=== PATIENT | female | born 1990 | race Caucasian/White ===

== ENCOUNTER 2019-04-05 12:28 | Observation (INO) | payer OTHER, SELFPAY ==
[2019-04-05 13:01] VITALS: BMI 31.8
--- NOTE | 2019-04-05 13:02 | OBADM ---
This patient, Alphonse Herron, admitted to the OB room 115 at 1228 for observation for contractions. Patient/family oriented to hospital policies and general routines including ID bracelet, bed and alarms, visiting hours, pain management, procedures, bathroom and other care routines, personal items, smoking policy, room service/diet, and visiting hours. Patient/Family are encouraged to report perceived risks to care and to ask questions if they do not understand what they are told or what they should do.
[2019-04-05 13:10] LABS: Add Urine Microscopic? YES; Appearance Urine Cloudy (Clear); Bacteria Urine 2+ /hpf; Bilirubin Urine Negative (Negative); Blood Urine Negative (Negative); Color Urine Yellow (Yellow); Glucose Urine UA Negative (Negative); Ketones Urine Trace mg/dL (Negative); Leukocyte Esterase Ur Negative LEU/UL (Negative); Mucus Urine Few /lpf; Nitrate Urine Negative (Negative); Protein Urine 1+ mg/dL (Negative); Specific Grav Ur 1.021 (1.001-1.035); Squamous Epithelial Cell Urine Moderate /hpf (Few); Urobilinogen Urine Negative mg/dL (<2.0)
[2019-04-05 13:17] VITALS: BP 118/68; PULSE 88; RESP 20; TEMP 36.4
[2019-04-05 13:31] VITALS: BP 115/71; PULSE 93
[2019-04-05 14:01] VITALS: BP 112/65; PULSE 87
[2019-04-05 14:25] LABS: Fetal Fibronectin Negative
--- NOTE | 2019-04-06 11:10 | P.PNOB_ITS ---
OB - Triage/Final Diagnosis Evaluation Laboratory results: Laboratory Tests 04/05/19 04/05/19 12:56 13:49 Urine Color Yellow Urine Appearance Cloudy H Urine pH 6.0 Ur Specific [place] 1.021 Urine Protein 1+ H Urine Glucose (UA) Negative Urine Ketones Trace Ur Blood (Man) Negative Urine Nitrate Negative Urine Bilirubin Negative Urine Urobilinogen Negative Leukocyte Esterase Rfl Negative Urine RBC 3-5 H Urine WBC 7-9 H Ur Squamous Epith Cells Moderate H Urine Bacteria 2+ H Urine Mucus Few H Fibronectin Negative Vital signs: Vital Signs - 24 hr 04/05/19 13:17 04/05/19 13:31 04/05/19 14:01 Temperature 36.4 C Pulse Rate 88 93 87 Respiratory Rate 20 Blood Pressure 118/68 115/71 112/65 Final Diagnosis (1) contractions: Code(s): O47.9 - False labor, unspecified Status: Acute
== END 2019-04-05 15:20 | disposition home or self-care (01) ==
PROVIDERS: Admitting Provider Obstetrics & Gynecology; Visit Provider Obstetrics & Gynecology
DX: O47.03 False labor before 37 completed weeks of gestation, third trimester (principal); Z3A.32 32 weeks gestation of pregnancy
CPT/HCPCS: 81001; 82731; 87086; G0378; G0379

== ENCOUNTER 2019-04-07 22:35 | Inpatient (IN) | payer OTHER, SELFPAY ==
--- NOTE | ~2019-04-07 | US_ITS ---
EXAMINATION: US OB limited w BPP DATE: 04/09/2019 21:57 INDICATION: Vaginal bleeding. Evaluate placenta, biophysical profile and amniotic fluid index during third trimester of . TECHNIQUE: Real-time pelvic ultrasound was performed. The interpreting radiologist was not present fo r the study. COMPARISON: 04/08/2019 FINDINGS: There is a single living fetus in vertex presentation. The placenta is fundal. heart rate is 1 41 beats per minute (bpm). Normal amniotic fluid index of 18.2 cm (5th%-95%: 8.3-24.5 cm at 33 weeks estimated gestational age). Biophysical profile performed by the technologist: breathing (30 sec sustained breathing in 30 minutes): 2 out of 2 movement (3 gross body movements in 30 minutes): 2 out of 2 tone (one episode of jtygmmj-cythcrkdr-joyymvl limb movement): 2 out of 2 Amniotic fluid pocket (2 cm): 2 out of 2 Total score: 8 out of 8 IMPRESSION: 1. Single living fetus in vertex presentation with heart rate of 141 bpm. 2. Biophysical profile 8 out of 8. 3. Normal amniotic fluid index of 18.2 cm. Reviewed, dictated and finalized at location A. UREMENT BUYER
--- NOTE | ~2019-04-07 | US_ITS ---
US OB limited 04/08/2019 00:59 Indication: Vaginal bleeding. . Procedure: Realtime limited obstetrical ultrasound using transabdominal technique Comparison: No prior studies for comparison. Findings: There is a single live intrauterine in vertex presentation with heart rate of 139 BPM. Placenta is fundal without previa. Amniotic fluid is subjectively normal. The placenta is grossly normal, without suggestion of placenta abruption. However, ultrasound is not diagnostic of abruption since acute hemorrhage can be isoechoic to be placenta. Recommend clinical correlation. Impression: 1: Single living intrauterine in vertex presentation. No significant abnormalities identifi ed. Reviewed, dictated and finalized at location A. LIFT SUPERVISOR Impression: 1: Single living intrauterine in vertex presentation. No significant abnormalities identified.
[2019-04-07 22:41] VITALS: BP 130/85; PULSE 97
[2019-04-07 22:45] VITALS: BP 143/78; PULSE 91
[2019-04-07] MEDS: TERBUTALINE SULFATE 1 MG/ML VIAL 0.25 MG SUB-Q (23:15)
[2019-04-07 23:39] VITALS: BP 105/49; PULSE 100
[2019-04-07 23:45] VITALS: BP 124/48; PULSE 92
[2019-04-07 23:49] VITALS: BP 108/48; PULSE 88
[2019-04-08] VITALS (17 sets, daily range): BP systolic 37–134; BP diastolic 15–93; PULSE 87–110; RESP 18; TEMP 36.6–36.7
[2019-04-08] MEDS: NIFEdipine 10 MG CAPSULE PO ×6 (00:15→21:19)
[2019-04-08] MEDS: LACTATED RINGERS 1,000 ML 999 ML IV CONT (02:13)
--- NOTE | 2019-04-08 02:43 | OBADM ---
This patient, Alphonse Herron, admitted to the OB room OB Post 116 for observation. Patient/family oriented to hospital policies and general routines including ID bracelet, bed and alarms, visiting hours, pain management, procedures, bathroom and other care routines, personal items, smoking policy, room service/diet, and visiting hours. Patient/Family are encouraged to report perceived risks to care and to ask questions if they do not understand what they are told or what they should do.
[2019-04-08] MEDS: LACTATED RINGERS 1,000 ML 125 ML IV CONT ×2 (03:15→11:15)
[2019-04-08] MEDS: BETAMETHASONE SOD PHOS/ACETATE 30 MG/5 ML VIAL 12 MG IM (09:14)
--- NOTE | 2019-04-08 09:28 | PM.IMHP ---
H&P: HPI History of Present Illness Chief complaint: vaginal bleeding Narrative: Alphonse Herron is a 28 year old female at 33+2 who came in 2/1 pm with c/o cramping and vaginal bleeding. She felt a moderate gush of fluid (which was blood when she looked). Bleeding has since resolved. She was kept throughout the night for contractions and observation. She was initially given terbutaline then procardia 10 mg po 3 times now. She does not feel contractions. No complaints now Review of Systems Review of Systems: All systems reviewed & are unremarkable except as noted in HPI and below [facility] Past Medical History Medical History (Updated 04/08/19 @ 09:40 by Piper Abel MD) Currently Yeast infection Social History Social History (Updated 01/14/19 @ 22:43 by Elida Gilbert) Smoking status: Current some day smoker Tobacco type: cigarettes Meds Home Medications and Allergies Home Medications Medication Instructions Recorded Confirmed Type 1 tablet PO DAILY 02/19/19 04/08/19 History Allergies Allergy/AdvReac Type Severity Reaction Status Date / Time buspirone Allergy Severe Swelling Verified 04/05/19 13:13 of Lip/Tongue/Throat peanut Allergy Severe Swelling Verified 04/05/19 13:13 of Lip/Tongue/Throat Vital Signs Vital Signs - 24 hr 04/07/19 22:41 04/07/19 22:45 04/07/19 23:39 Pulse Rate 97 91 100 Blood Pressure 130/85 143/78 H 105/49 L 04/07/19 23:45 04/07/19 23:49 04/08/19 00:00 Pulse Rate 92 88 89 Blood Pressure 124/48 L 108/48 L 116/50 L 04/08/19 00:16 04/08/19 00:18 04/08/19 00:19 Pulse Rate 93 90 93 Blood Pressure 112/30 L 111/37 L 103/41 L 04/08/19 00:30 04/08/19 01:00 04/08/19 02:01 Pulse Rate 110 H 88 92 Blood Pressure 115/93 H 107/60 103/53 L 04/08/19 03:04 04/08/19 03:17 04/08/19 08:45 Pulse Rate 88 96 87 Blood Pressure 37/15 L 114/59 L 117/62 Exam Const: General: no acute distress Resp: Auscultation: clear to auscultation bilaterally Cardio: Rate: regular rate Rhythm: regular rhythm GI: GI Palp: Yes Soft to palpation and No Tenderness to palpation present (GI) Other: Uterus nontender Extrem: General: no edema Psych: Mental Status: mental status grossly normal Assessment and Plan Assessment and plan (1) with third trimester bleeding, antepartum: Code(s): O46.93 - Antepartum hemorrhage, unspecified, third trimester Status: Acute Assessment and Plan: No evidence of abruption on ultrasound. Bleeding has resolved. I spoke with Dr. Jerez Ange with [facility]. who agrees with steroid course (First dose was given this morning). He also recommends observation in hospital with continuous monitoring for 3-4 days minimum. She may stay here if patient comfortable with that, or she may choose to be transferred to [facility] if she prefers. She agrees to stay at least until tomorrow for second dose of steroids. She is aware of recommendation to stay in hospital 3-4 days per [facility]. status overall reassuring but one 5 minute deceleration noted around 0840. Rh + blood type (2) contractions: Code(s): O47.9 - False labor, unspecified Status: Acute Assessment and Plan: No current evidence of labor but continue procardia for contractions.
[2019-04-08 10:18] LABS: Hematocrit 29.9 % (37.0-47.0); Hemoglobin 9.9 g/dL (12.0-15.0); Mean Corpuscular HGB Conc 33.1 g/dl (32-36); Mean Corpuscular Hemoglobin 32.1 pg (26-34); Mean Corpuscular Volume 97.1 fl (80-100); Mean Platelet Volume 10.2 fl (7.4-10.4); Platelet Count Result 156 k/mm3 (150-375); Red Blood Count 3.08 M/mm3 (4.2-5.4); White Blood Count 12.5 K/mm3 (4.5-10.0)
[2019-04-08 11:33] LABS: Glucose Point of Care 75 (65-105)
[2019-04-08 13:57] LABS: Glucose Point of Care 139 (65-105)
[2019-04-08 18:02] LABS: Glucose Point of Care 165 (65-105)
[2019-04-08 22:00] LABS: Glucose Point of Care 168 (65-105)
[2019-04-09] VITALS (15 sets, daily range): BP systolic 110–137; BP diastolic 57–81; PULSE 80–112; TEMP 36.3–36.8; BMI 33.2
[2019-04-09] MEDS: NIFEdipine 10 MG CAPSULE PO ×6 (00:48→21:02)
[2019-04-09 07:12] LABS: Glucose Point of Care 95 (65-105)
--- NOTE | 2019-04-09 08:13 | WPDPN ---
Progress Note: A&P Assessment and Plan (1) with third trimester bleeding, antepartum: Code(s): O46.93 - Antepartum hemorrhage, unspecified, third trimester Status: Acute Assessment and Plan: Second dose of steroids due this morning. Fetus still has had a few spontaneous decelerations, most recent at 0312 today. MFM advised hospitalization and continuous monitoring for a few days so continue that for now. Add SCDs for DVT prophylaxis since she's in bed much of the time (2) contractions: Code(s): O47.9 - False labor, unspecified Status: Acute Assessment and Plan: Continue procardia for now, asymptomatic. Cervix closed yesterday Review of Systems Review of Systems: All systems reviewed & are unremarkable except as noted in HPI and below Exam Const: General: no acute distress Resp: Auscultation: clear to auscultation bilaterally Cardio: Rate: regular rate Rhythm: regular rhythm GI: GI Palp: Yes Soft to palpation and No Tenderness to palpation present (GI) Extrem: General: no edema Psych: Mental Status: mental status grossly normal Objective Data Vital Signs Vital Signs: Vital Signs - 24 hr 04/08/19 08:45 04/08/19 09:00 04/08/19 13:00 Temperature 36.7 C 36.7 C Pulse Rate 87 Respiratory Rate Blood Pressure 117/62 04/08/19 13:09 04/08/19 16:55 04/08/19 17:00 Temperature 36.6 C Pulse Rate 91 98 Respiratory Rate Blood Pressure 118/62 134/64 04/08/19 21:16 04/08/19 21:21 04/09/19 00:48 Temperature 36.6 C 36.8 C Pulse Rate 91 80 Respiratory Rate 18 Blood Pressure 125/58 L 122/67 04/09/19 07:03 04/09/19 07:05 Temperature 36.3 C L Pulse Rate 91 Respiratory Rate Blood Pressure 121/64 Intake/Output Intake/Output: Intake & Output 04/06/19 04/07/19 04/08/19 04/09/19 23:59 23:59 23:59 23:59 Intake Total 3000 Balance 3000 Meds/Results Medications: Active Medications Generic Name Dose Route Start Last Admin Trade Name Freq PRN Reason Stop Dose Admin Betamethasone Acet/Betameth SodPhos 12 mg 04/09/19 09:00 Celestone-Soluspan IM 04/09/19 09:01 ONCE ONE Nifedipine 10 mg 04/08/19 13:00 04/09/19 04:59 Procardia PO 10 mg Q4H ELVIS Administration Radiology Results: ITS Impressions Obstetrics Ultrasound 04/08/19 09:30 Impression: 1: Single living intrauterine in vertex presentation. No significant abnormalities identified. Labs Labs: Laboratory Results - last 24 hr 04/08/19 04/08/19 04/08/19 08:48 10:07 10:07 WBC 12.5 H RBC 3.08 L Hgb 9.9 L Hct 29.9 L MCV 97.1 MCH 32.1 MCHC 33.1 RDW 13.0 Plt Count 156 MPV 10.2 POC Capillary Glucose 75 Blood Type A Positive Antibody Screen Negative KB Hemoglobin 04/08/19 04/08/19 04/08/19 10:07 13:54 17:57 WBC RBC Hgb Hct MCV MCH MCHC RDW Plt Count MPV POC Capillary Glucose 139 H 165 H Blood Type Antibody Screen KB Hemoglobin Negative 04/08/19 04/09/19 21:57 07:07 WBC RBC Hgb Hct MCV MCH MCHC RDW Plt Count MPV POC Capillary Glucose 168 H 95 Blood Type Antibody Screen KB Hemoglobin
[2019-04-09] MEDS: BETAMETHASONE SOD PHOS/ACETATE 30 MG/5 ML VIAL 12 MG IM (08:51)
[2019-04-09 10:13] LABS: Rapid Plasma Reagin Non-Reactive (NonReactive)
[2019-04-09 11:24] LABS: Glucose Point of Care 104 (65-105)
[2019-04-09 16:22] LABS: Glucose Point of Care 139 (65-105)
[2019-04-09 19:33] LABS: Glucose Point of Care 122 (65-105)
[2019-04-09 23:09] LABS: Glucose Point of Care 151 (65-105)
[2019-04-10] VITALS (28 sets, daily range): BP systolic 90–132; BP diastolic 41–74; PULSE 76–98; TEMP 36.5
[2019-04-10] MEDS: NIFEdipine 10 MG CAPSULE PO ×3 (01:44→08:50)
[2019-04-10 07:23] LABS: Glucose Point of Care 98 (65-105)
--- NOTE | 2019-04-10 07:47 | P.PNOB_ITS ---
OB - PN: Subj Subjective Date/time seen: 04/10/19 07:47 Interval history: No complaints. No further bleeding. She only feels contractions when she needs to urinate. Good movement. One deceleration at 1999 last night OB - PN: Obj Data Labs CBC & Chem 7: 04/08/19 10:07 Labs: Laboratory Results - last 24 hr 04/08/19 04/09/19 04/09/19 10:07 11:19 16:16 POC Capillary Glucose 104 139 H RPR Non-reactive KB Hemoglobin 04/09/19 04/09/19 04/09/19 19:29 20:41 23:06 POC Capillary Glucose 122 H 151 H RPR KB Hemoglobin Negative 04/10/19 06:51 POC Capillary Glucose 98 RPR KB Hemoglobin Imaging Radiologist's impression: Impressions Obstetrics US/Biophysical Profile 04/09/19 22:04 IMPRESSION: 1. Single living fetus in vertex presentation with heart rate of 141 bpm. 2. Biophysical profile 8 out of 8. 3. Normal amniotic fluid index of 18.2 cm. OB - PN A/P Assessment and Plan (1) with third trimester bleeding, antepartum: Code(s): O46.93 - Antepartum hemorrhage, unspecified, third trimester Status: Acute Assessment and Plan: No further bleeding. status overall reassuring but still occasional spontaneous decelerations. M recommended hospitalization for at least 3-4 days and it has now been 2 days. I advised her to stay at least another day, and she plans to sign out AMA. We discussed risks including but not limited to bleeding; infection; labor and/or delivery; risk of injury such as brain damage and/or other joint terminal attack controller devastating complications to fetus; and/or maternal . I advised her to come back immediately if any bleeding, worsening contractions, leakage of fluid, decreased movement, or any other concerning symptoms. She expressed understanding (2) contractions: Code(s): O47.9 - False labor, unspecified Status: Acute Assessment and Plan: contractions but no current evidence of labor. Continue procardia 10 mg po Q4 hours. Keep appointments as scheduled in office Time Spent With Patient Time: Total time spent is greater than 50% in coordination of care (as documented) at patient's floor/unit and/or counseling patient: Exam Const: General: no acute distress Resp: Auscultation: clear to auscultation bilaterally Cardio: Rate: regular rate GI: Other: gravid, soft, nontender : Other: Cervix closed/thick/-3 Psych: Mental Status: mental status grossly normal
--- NOTE | 2019-04-10 07:56 | PC.NURSE ---
Dr. Abel at bedside. pt requested to be discharged. DR. Abel declines due to occasional decelerations. PT and MD discussed risk of leaving hospital against medical advice.
--- NOTE | 2019-04-10 07:59 | PC.NURSE ---
this RN in patient room, discussed risk of labor and delivery, risk of bleeding, infection and . pt verbalized understanding. reinforced to come back for decreased movement, vaginal bleeding, leaking fluid, increased uterine contractions. instructed pt to take procardia every 4 hours for contractions.
--- NOTE | 2019-04-10 08:45 | PC.NURSE ---
Pt departed with mother, understanding precautions. procardia given for 0900 dose
== END 2019-04-10 08:45 | disposition left against medical advice (07) | DRG 566 ==
PROVIDERS: Admitting Provider Obstetrics & Gynecology; Visit Provider Obstetrics & Gynecology
DX: O46.93 Antepartum hemorrhage, unspecified, third trimester (principal); O47.9 False labor, unspecified
CPT/HCPCS: 36415; 76815; 76819; 85027; 85460; 86592; 86850; 86900; 86901; A9270; J0702; J3105; J7120

== ENCOUNTER 2019-04-14 23:15 | Observation (INO) | payer OTHER, SELFPAY ==
[2019-04-14 23:30] VITALS: BMI 33.4
[2019-04-14 23:31] VITALS: BP 129/69; PULSE 101
[2019-04-14 23:46] VITALS: BP 117/95; PULSE 103
[2019-04-15 00:01] VITALS: BP 124/65; PULSE 97
[2019-04-15 00:16] VITALS: BP 115/70; PULSE 92
[2019-04-15 00:31] VITALS: BP 113/59; PULSE 98
[2019-04-15 00:46] VITALS: BP 113/62; PULSE 87
[2019-04-15] MEDS: NIFEdipine 10 MG CAPSULE 30 MG PO (00:57)
[2019-04-15 01:00] VITALS: TEMP 37
[2019-04-15 01:55] LABS: Add Urine Microscopic? YES; Appearance Urine Clear (Clear); Bacteria Urine 1+ /hpf; Bilirubin Urine Negative (Negative); Blood Urine Negative (Negative); Color Urine Straw (Yellow); Glucose Urine UA Negative (Negative); Ketones Urine Trace mg/dL (Negative); Leukocyte Esterase Ur Negative LEU/UL (Negative); Mucus Urine Rare /lpf; Nitrate Urine Negative (Negative); Protein Urine Negative (Negative); RBC Urine 0-2 /hpf (0-2); Specific Grav Ur 1.016 (1.001-1.035); Squamous Epithelial Cell Urine Many /hpf (Few); Urobilinogen Urine Negative mg/dL (<2.0); WBC Urine 0-3 /hpf
[2019-04-15 02:03] VITALS: BP 117/61; PULSE 96
--- NOTE | 2019-04-15 03:05 | OBADM ---
This patient, Alphonse Herron, admitted to the OB room OB Post 115 for observation. Patient/family oriented to hospital policies and general routines including ID bracelet, bed and alarms, visiting hours, pain management, procedures, bathroom and other care routines, personal items, smoking policy, room service/diet, and visiting hours. Patient/Family are encouraged to report perceived risks to care and to ask questions if they do not understand what they are told or what they should do.
--- NOTE | 2019-05-09 17:49 | P.PNOB_ITS ---
OB - Triage/Final Diagnosis Evaluation Laboratory results: Laboratory Tests 04/15/19 01:07 Urine Color Straw Urine Appearance Clear Urine pH 6.0 Ur Specific [place] 1.016 Urine Protein Negative Urine Glucose (UA) Negative Urine Ketones Trace Ur Blood (Man) Negative Urine Nitrate Negative Urine Bilirubin Negative Urine Urobilinogen Negative Leukocyte Esterase Rfl Negative Urine RBC 0-2 Urine WBC 0-3 Ur Squamous Epith Cells Many H Urine Bacteria 1+ H Hyaline Casts 1-2 Urine Mucus Rare Final Diagnosis (1) False labor: Code(s): O47.9 - False labor, unspecified Status: Acute
== END 2019-04-15 03:20 | disposition home or self-care (01) ==
PROVIDERS: Advanced Practice Midwife; Admitting Provider Obstetrics & Gynecology; Visit Provider Obstetrics & Gynecology
DX: O47.03 False labor before 37 completed weeks of gestation, third trimester (principal); Z3A.34 34 weeks gestation of pregnancy
CPT/HCPCS: 81001; A9270; G0378; G0379

== ENCOUNTER 2019-04-29 20:25 | Observation (INO) | payer OTHER, SELFPAY ==
--- NOTE | 2019-05-13 12:37 | PM.GYNPNOP ---
DATA INTEGRITY CONSULTANT - A/P Assessment and plan (1) Non-reassuring status: Status: Acute Time Spent With Patient Time: Total time spent is greater than 50% in coordination of care (as documented) at patient's floor/unit and/or counseling patient: Time with patient: less than 15 minutes DATA INTEGRITY CONSULTANT- PN:Subj Post-Op Subjective Date/time seen: 05/04/2019 Patient left against medical advice . We recommended that she continue to be monitored for nonreassuring status and possibly delivered.
== END 2019-04-29 23:03 | disposition left against medical advice (07) ==
PROVIDERS: Admitting Provider Obstetrics & Gynecology; Visit Provider Obstetrics & Gynecology
DX: O36.90X0 Maternal care for fetal problem, unspecified, unspecified trimester, not applicable or unspecified (principal); Z3A.00 Weeks of gestation of pregnancy not specified
CPT/HCPCS: G0378; G0379

== ENCOUNTER 2019-05-01 19:17 | Inpatient (IN) | payer OTHER, SELFPAY ==
[2019-05-01] VITALS (7 sets, daily range): BP systolic 112–130; BP diastolic 54–79; PULSE 83–94; TEMP 36.8; BMI 33.9
[2019-05-01 20:02] LABS: Basophils Percent Auto 0.1 % (0.2-1.2); Eosinophils Absolute Auto 0.1 K/mm3 (0-0.3); Eosinophils Percent Auto 0.4 % (0-4.4); Hemoglobin 10.9 g/dL (12.0-15.0); Immature Granulocyte Absolute 0.14 K/mm3 (0.00-0.031); Lymphocytes Absolute Auto 2.15 K/mm3 (0.9-3.2); Lymphocytes Percent Auto 14.6 % (18.3-44.2); Mean Corpuscular Volume 93.8 fl (80-100); Monocytes Absolute Auto 1.1 K/mm3 (0.1-0.6); Monocytes Percent Auto 7.1 % (2.6-8.5); Neutrophils Absolute Auto 11.3 K/mm3 (1.3-6.7); Neutrophils Percent Auto 76.8 % (45.5-73.1); Platelet Count Result 161 k/mm3 (150-375); Red Blood Count 3.52 M/mm3 (4.2-5.4); White Blood Count 14.7 K/mm3 (4.5-10.0)
[2019-05-01] MEDS: DINOPROSTONE 10 MG VAG INSERT VAGINAL (20:27)
[2019-05-01 20:38] LABS: Glucose Point of Care 73 (65-105)
--- NOTE | 2019-05-01 20:40 | LDADM ---
This patient, Alphonse Herron, was admitted to Labor/Delivery/Recovery 107 on 05/01/19 at 19:17. Plans for labor, pain management and were discussed with patient. Patient/family oriented to hospital policies and general routines including ID bracelet, bed and alarms, visiting hours, pain management, procedures, bathroom and other care routines, personal items, smoking policy, room service/diet and guest tray routines, security routines, and visiting hours. Patient/Family are encouraged to report perceived risks to care and to ask questions if they do not understand what they are told or what they should do. See OBIX for further documentation.
[2019-05-01] MEDS: ACETAMINOPHEN 500 MG TABLET 1000 MG PO (21:29)
[2019-05-02] VITALS (89 sets, daily range): BP systolic 83–154; BP diastolic 32–130; PULSE 58–186; RESP 16–20; TEMP 36.2–37.3; O2SAT 93–100
[2019-05-02 00:16] LABS: Glucose Point of Care 110 (65-105)
[2019-05-02 04:09] LABS: Glucose Point of Care 88 (65-105)
[2019-05-02] MEDS: LACTATED RINGERS 1,000 ML 125 ML IV CONT (04:59)
--- NOTE | 2019-05-02 07:46 | WPDOBADMIT ---
Obstetrics - Admit Note Admission Note: record reviewed. No pertinent additions to the history and/or any subsequent changes in the physical findings that are not consistent with the expected course of the were found. MIL for GDM, tachycardia, third trimester bleeding, cervidil induction Additions to the history and/or subsequent changes in the physical findings follow. None.
[2019-05-02 07:51] LABS: Glucose Point of Care 86 (65-105)
[2019-05-02 07:52] LABS: Rapid Plasma Reagin Non-Reactive (NonReactive)
[2019-05-02] MEDS: DINOPROSTONE 10 MG VAG INSERT VAGINAL (08:09)
--- NOTE | 2019-05-02 11:26 | PM.OBPNLAB ---
Pain Control Date/time seen: 05/02/19 11:26 Assessment and Plan Comments: CNM at bs and cervadil pulled, discussed with pt history of non reassuring FHT, decelerations and failure to progress in labor. Dr. Burrows notified and proceed with section
--- NOTE | 2019-05-02 12:23 | PM.IMHP ---
H&P: HPI History of Present Illness Chief complaint: IOL Narrative: Alphonse Herron is a 28 year old female 1 at 36 weeks and 5 days gestation who presented for induction of labor. During the cervical ripening the fetus had nonreassuring status. She has had repetitive deep late decelerations that were prolonged. We talked about the patient's options and was strongly recommended to the patient. We have agreed to proceed with delivery. She understands there is risk of the surgery. She understands that injuries may occur that result in hospitalization, more surgery, severe illness. She understands the risk of hemorrhage and infection. The patient has had 3rd trimester bleeding. She has had prolonged decelerations at other admissions to the hospital and discharged herself against medical advice. Review of Systems Constitutional: Constitutional: Reports no additional constitutional complaints, Denies fatigue, Denies headache(s), Denies lethargy and Denies weakness Eyes: Eyes: Reports no additional eye complaints, Denies blurry vision and Denies photophobia ENT: Reports as per HPI, Denies headache(s) and Denies neck pain Cardiovascular: Cardiovascular: Denies chest pain, Denies diaphoresis, Denies leg edema, Denies palpitations and Denies dyspnea Respiratory: Respiratory: Denies hemoptysis, Denies dyspnea and Denies wheezing Gastrointestinal: Gastrointestinal: Denies abdominal pain, Denies melena, Denies bloating, Denies hematochezia, Denies nausea and Denies vomiting Genitourinary: Genitourinary: Reports no additional female genitourinary complaints Musculoskeletal: Musculoskeletal: Denies joint swelling, Denies neck pain, Denies numbness and Denies stiffness Neurologic: Denies Abnormal speech present, Denies confusion, Denies headache(s), Denies numbness and Denies weakness Psychiatric: Psychiatric: Denies anxiety, Denies confusion, Denies depression, Denies homicidal ideation and Denies suicidal ideation Endocrine: Endocrine: Denies fatigue and Denies palpitations Allergic/Immunologic: Allergic/Immunologic: Denies wheezing PMFSH Past Medical History Medical History (Updated 05/02/19 @ 12:28 by Miguel Burrows MD) Currently Yeast infection Social History Social History (Updated 01/14/19 @ 22:43 by Elida Gilbert) Smoking packs per day: 1 Smoking cigarettes per day: 20.0 Years smoked: 6 Smoking pack-years: 6.00 Smoking status: Former smoker Tobacco type: cigarettes Second hand tobacco smoke exposure: No Substance use: never Gender identity (if verbalized by the patient): Female Spiritual care concerns: No Meds Home Medications and Allergies Home Medications Medication Instructions Recorded Confirmed Type 1 tablet PO DAILY 02/19/19 05/01/19 History Allergies Allergy/AdvReac Type Severity Reaction Status Date / Time buspirone Allergy Severe Swelling Verified 04/05/19 13:13 of Lip/Tongue/Throat peanut Allergy Severe Swelling Verified 04/05/19 13:13 of Lip/Tongue/Throat Vital Signs Vital Signs - 24 hr 05/01/19 20:11 05/01/19 20:20 05/01/19 20:31 Temperature 98.2 F Pulse Rate 94 83 Blood Pressure 125/69 126/62 Pulse Oximetry 05/01/19 21:01 05/01/19 21:31 05/01/19 21:35 Temperature 98.2 F Pulse Rate 92 93 Blood Pressure 126/79 130/54 L Pulse Oximetry 05/01/19 22:01 05/02/19 02:42 05/02/19 02:47 Temperature Pulse Rate 90 Blood Pressure 112/61 Pulse Oximetry 100 100 05/02/19 02:50 05/02/19 02:52 05/02/19 02:57 Temperature 97.7 F Pulse Rate Blood Pressure Pulse Oximetry 100 99 05/02/19 03:02 05/02/19 03:07 05/02/19 03:12 Temperature Pulse Rate Blood Pressure Pulse Oximetry 98 99 100 05/02/19 03:17 05/02/19 03:22 05/02/19 03:25 Temperature Pulse Rate 88 Blood Pressure 120/60 Pulse Oximetry 100 99 05/02/19 03:31
--- NOTE | 2019-05-02 12:54 | WPDANESEPPF ---
Anes - Initial Pre Proc Eval Procedure: Operation Date: 05/02/19 13:30 Proposed Procedures p Section - Miguel Burrows MD Date/Time: 05/02/19 12:54 Surgeon: Miguel Burrows MD Pre Op Diagnosis: IOL Patient Data Age: 28 Gender: F Height: 5 ft 6 in Weight: 95.3 kg Last Vital Signs Temp 36.8 C 05/02/19 08:00 Pulse 88 05/02/19 12:26 BP 138/90 05/02/19 12:26 Pulse Ox 99 05/02/19 03:22 Allergies Allergy/AdvReac Type Severity Reaction Status Date / Time buspirone Allergy Severe Swelling Verified 04/05/19 13:13 of Lip/Tongue/Throat peanut Allergy Severe Swelling Verified 04/05/19 13:13 of Lip/Tongue/Throat Home Medications Medication Instructions Recorded Confirmed Type 1 tablet PO DAILY 02/19/19 05/01/19 History Laboratory Tests 05/01/19 05/01/19 05/01/19 19:53 19:54 19:54 WBC 14.7 K/mm3 H K/mm3 (4.5-10.0) RBC 3.52 M/mm3 L M/mm3 (4.2-5.4) Hgb 10.9 g/dL L g/dL (12.0-15.0) Hct 33.0 % L % (37.0-47.0) MCV 93.8 fl fl (80-100) MCH 31.0 pg pg (26-34) MCHC 33.0 g/dl g/dl (32-36) RDW 13.0 % % (11.5-14.5) Plt Count 161 k/mm3 k/mm3 (150-375) MPV 11.0 fl H fl (7.4-10.4) Immature Gran % (Auto) 1.0 % H % (0-0.5) Neut % (Auto) 76.8 % H % (45.5-73.1) Lymph % (Auto) 14.6 % L % (18.3-44.2) [place] % (Auto) 7.1 % % (2.6-8.5) Eos % (Auto) 0.4 % % (0-4.4) Baso % (Auto) 0.1 % L % (0.2-1.2) Lymph # (Auto) 2.15 K/mm3 K/mm3 (0.9-3.2) [place] # (Auto) 1.1 K/mm3 H K/mm3 (0.1-0.6) Eos # (Auto) 0.1 K/mm3 K/mm3 (0-0.3) Baso # (Auto) 0.0 K/mm3 K/mm3 (0.0-0.1) Abs Immat Gran (auto) 0.14 K/mm3 H K/mm3 (0.00-0.031) Absolute Neuts (auto) 11.3 K/mm3 H K/mm3 (1.3-6.7) Absolute Nucleated RBC 0.0 K/mm3 K/mm3 (0.0-0.012) Nucleated RBC % 0.0 % % (0.0-0.2) POC Capillary Glucose 73 mg/dl mg/dl (65-105) RPR Non-reactive (NonReactive) Blood Type Antibody Screen 05/01/19 05/02/19 05/02/19 19:54 00:14 04:07 WBC RBC Hgb Hct MCV MCH MCHC RDW Plt Count MPV Immature Gran % (Auto) Neut % (Auto) Lymph % (Auto) [place] % (Auto) Eos % (Auto) Baso % (Auto) Lymph # (Auto) [place] # (Auto) Eos # (Auto) Baso # (Auto) Abs Immat Gran (auto) Absolute Neuts (auto) Absolute Nucleated RBC Nucleated RBC % POC Capillary Glucose 110 mg/dl mg/dl 88 mg/dl mg/dl (65-105) (65-105) RPR Blood Type A Positive Antibody Screen Negative 05/02/19 07:49 WBC RBC Hgb Hct MCV MCH MCHC RDW Plt Count MPV Immature Gran % (Auto) Neut % (Auto) Lymph % (Auto) [place] % (Auto) Eos % (Auto) Baso % (Auto) Lymph # (Auto) [place] # (Auto) Eos # (Auto) Baso # (Auto) Abs Immat Gran (auto) Absolute Neuts (auto) Absolute Nucleated RBC Nucleated RBC % POC Capillary Glucose 86 mg/dl mg/dl (65-105) RPR Blood Type Antibody Screen Patient hx anesthesia problems: none Family hx anesthesia problems: none [facility] Past Medical History Medical History (Updated 05/02/19 @ 12:28 by Miguel Burrows MD) Currently Smoker Yeast infection Family History Family History Other No pertinent family history Social History Social History (
[2019-05-02 13:09] LABS: Glucose Point of Care 72 (65-105)
--- NOTE | 2019-05-02 14:30 | P.OP_ITS ---
Procedure Note - Detailed Date of procedure: 05/02/19 Pre-op diagnosis: IOL Nonreassuring status, nonreassuring heart tones, 3rd trimester hemorrhage, 36 weeks gestation Post-op diagnosis: same Procedure performed: low-transverse delivery Description of procedure: The patient was taken the operating room. She was prepped and draped in the dorsal supine position with leftward tilt after induction of spinal anesthetic. When anesthesia was found to be adequate a low- transverse skin incision was made and carried down to the level the fascia with the knife. The fascial incision was made at the midline with a scalpel. The fascial incision was extended laterally with Garcia scissors. The fascia was tented upward superior and inferior with Nicole clamps. The rectus muscles were dissected off bluntly. The rectus muscles at the midline. The preperitoneal fat was dissected bluntly at the superior aspect of the separate the rectus muscles. The peritoneal cavity was entered bluntly in the same area. The peritoneal incision was extended superior and inferior with good visualization of bladder. Bladder blade was inserted. A low-transverse incision was made on the uterus with the scalpel. It was carried down the level of the amniotic cavity with a knife. The amniotic cavity bluntly. The uterine incision was made laterally with blunt traction. The was delivered. The cord was clamped and cut. The infant was handed off to waiting pediatric staff. Cord bloods were obtained. The placenta was removed manually. The uterus was exteriorized. Uterus cleared of all clots and debris. Uterus closed in 0 Vicryl in a running locked fashion. An imbricating layer of 0 Vicryl was also placed on the to bolster the closure. The uterus was returned to the abdomen. The gutters were cleared of all clots and debris. The fascia was closed 0 Vicryl in a running fashion. Subcutaneous tissue was irrigated and bleeding areas were cauterized. The skin was closed with subcuticular absorbable carole. The incision was covered with derma gaytan. The patient tolerated the procedure well. She was taken recovery room stable condition. Sponge, lap, needle counts were correct x2. Anesthesia: spinal Surgeon: Miguel Burrows MD Estimated blood loss (mL): 560 Drains: No Packing: No Pathology: none sent Complications: No immediate complications Condition: stable Disposition: floor Findings: Normal maternal anatomy. Average size infant with normal Apgars. No gross evidence of abruption. Loops of cord around the umbilicus and leg.
[2019-05-02] MEDS: ceFAZolin 2 GM/D5W 50 ML 2 GM/50 ML BAG IVPB (15:03)
[2019-05-02] MEDS: KETOROLAC 30 MG/ML VIAL (*BKC) IV PUSH (16:18)
--- NOTE | 2019-05-02 16:55 | PC.NURSE ---
Patient transferred to post room #287 via stretcher from labor and delivery. Support person present. Oriented to unit, room, information board, rooming in, admission packet and security measures. Patient verbalizes understanding.
[2019-05-02] MEDS: DEXTROSE 5%/0.45% SOD CHL 1,000 ML 125 ML IV CONT (21:50)
[2019-05-03 00:43] VITALS: BP 94/57; PULSE 90; RESP 18; TEMP 36.8
[2019-05-03] MEDS: SIMETHICONE 80 MG TAB.CHEW PO (02:32)
[2019-05-03 05:30] VITALS: BP 124/74; PULSE 86; RESP 18; TEMP 36.9
[2019-05-03 05:39] LABS: Basophils Percent Auto 0.2 % (0.2-1.2); Eosinophils Absolute Auto 0.1 K/mm3 (0-0.3); Eosinophils Percent Auto 0.3 % (0-4.4); Hematocrit 29.3 % (37.0-47.0); Hemoglobin 9.5 g/dL (12.0-15.0); Immature Granulocyte Percent A 0.7 % (0-0.5); Lymphocytes Percent Auto 14.5 % (18.3-44.2); Mean Corpuscular HGB Conc 32.4 g/dl (32-36); Mean Corpuscular Hemoglobin 31.3 pg (26-34); Mean Corpuscular Volume 96.4 fl (80-100); Monocytes Absolute Auto 1.1 K/mm3 (0.1-0.6); Monocytes Percent Auto 7.8 % (2.6-8.5); Neutrophils Absolute Auto 11.1 K/mm3 (1.3-6.7); Neutrophils Percent Auto 76.5 % (45.5-73.1); Platelet Count Result 138 k/mm3 (150-375); Red Blood Count 3.04 M/mm3 (4.2-5.4); Red Cell Distribution Width 13.1 % (11.5-14.5); White Blood Count 14.5 K/mm3 (4.5-10.0)
--- NOTE | 2019-05-03 07:40 | PM.OBPNVD ---
OB - PN: Subj Subjective Date/time seen: 05/03/19 07:40 Patient comments: no complaints, pain well controlled, incisional pain, tolerating diet and flatus present OB - PN: Obj Data Labs CBC & Chem 7: 05/03/19 05:12 Labs: Laboratory Results - last 24 hr 05/01/19 05/02/19 05/02/19 19:54 07:49 13:07 WBC RBC Hgb Hct MCV MCH MCHC RDW Plt Count MPV Immature Gran % (Auto) Neut % (Auto) Lymph % (Auto) [facility] % (Auto) Eos % (Auto) Baso % (Auto) Lymph # (Auto) [facility] # (Auto) Eos # (Auto) Baso # (Auto) Abs Immat Gran (auto) Absolute Neuts (auto) Absolute Nucleated RBC Nucleated RBC % POC Capillary Glucose 86 72 RPR Non-reactive 05/03/19 05:12 WBC 14.5 H RBC 3.04 L Hgb 9.5 L Hct 29.3 L MCV 96.4 MCH 31.3 MCHC 32.4 RDW 13.1 Plt Count 138 L MPV 11.0 H Immature Gran % (Auto) 0.7 H Neut % (Auto) 76.5 H Lymph % (Auto) 14.[address] [facility] [place] [facility] % (Auto) 7.8 Eos % (Auto) 0.3 Baso % (Auto) 0.2 Lymph # (Auto) 2.10 [facility] # (Auto) 1.1 H Eos # (Auto) 0.1 Baso # (Auto) 0.0 Abs Immat Gran (auto) 0.10 H Absolute Neuts (auto) 11.1 H Absolute Nucleated RBC 0.0 Nucleated RBC % 0.0 POC Capillary Glucose RPR OB - PN A/P Plan day: 1 Plan: routine care Comments: No problems, routine care Time Spent With Patient Time: Total time spent is greater than 50% in coordination of care (as documented) at patient's floor/unit and/or counseling patient: Exam Const: General: comfortable, no acute distress and alert Resp: Effort & Inspection: normal respiratory effort Auscultation: no crackles, no rales and no rhonchi Cardio: Rate: regular rate Heart sounds: no click, no murmurs and no rubs GI: Inspection: non-distended GI Palp: No Tenderness to palpation present (GI) Auscultation: normal bowel sounds Other: Incision - CDI Extrem: General: normal to inspection, no pedal edema and no calf tenderness
[2019-05-03] MEDS: POLYSACCHARIDE IRON COMPLEX 150 MG CAPSULE PO ×2 (08:24→17:21)
[2019-05-03] MEDS: MULTIVIT/MIN/PREN/FOL AC/IRON TABLET 1 TAB PO (08:24)
[2019-05-03] MEDS: IBUPROFEN 600 MG TABLET PO ×3 (08:25→20:35)
[2019-05-03 08:40] VITALS: BP 125/71; PULSE 87; RESP 18; TEMP 36.9; O2SAT 98
--- NOTE | 2019-05-03 10:00 | PC.NURSE ---
Consulted with patient, mother reports infant is nursing with nipple shield for all feeding. Discussed nipple shield precautions and possible complications. Instructions given on application and cleaning of shield. Patient able to return demonstration on proper application of shield. Discussed the need to initiate pumping if infant continues to nurse with the shield. Patient verbalizes understanding. Reviewed infant feeding cues, frequencies, duration of feedings, feeding elimination flow sheet, and signs of adequate intake. Demonstrated stimulation techniques to wake infant for feeding. Assisted with to breast. Reviewed positioning/alignment, holding breast and asymmetrical latch on. Several attempts to latch correctly. nursed eagerly, with steady draws and frequent swallowing noted. Reviewed signs of a correct latch, effective nursing and suck swallow ratio. was able to maintain latch without discomfort to mother. Nipple care reviewed. Advised to stimulate to keep infant awake and nursing effectively for increased intake and stimulation of milk supply. Instructed mother to call out for RN assistance if she is unable to latch infant for feeding or she has discomfort with nursing. Instructed feeding should be initiated three hours from start of last feeding or if feeding cues are noted before. Mother voiced understanding of information shared. Requested mother call out when you are ready to initiate pumping.
[2019-05-03 11:25] VITALS: BP 133/61; PULSE 82; RESP 16; TEMP 37; O2SAT 98
--- NOTE | 2019-05-03 12:46 | WPDANLDPN2 ---
Anes-Prog Note L&D Date/Time: 05/03/19 12:46 Comfortable throughout: section Neuraxial method: spinal Epidural/Spinal procedure site: clean & non-tender Neuro status: Neuro function grossly intact. Cardiovascular status: normal Respiratory status: normal Airway patency: baseline Mental status: baseline Post-Op hydration status: normal Vital Signs: Last Vital Signs Temp 37.0 C 05/03/19 11:25 Pulse 82 05/03/19 11:25 Resp 16 05/03/19 11:25 BP 133/61 05/03/19 11:25 Pulse Ox 98 05/03/19 11:25 I/O: Intake & Output 05/02/19 05/03/19 05/03/19 23:59 07:59 15:59 Intake Total 200 Output Total 98 3400 500 Balance -98 3200 -500 Post-procedural complaints: none Patient feedback: Patient satisfied with anesthetic care.
--- NOTE | 2019-05-03 12:46 | WPDANLDNPN2 ---
Anes-Prog Note L&D-Neuraxial Date/Time: 05/03/19 12:46 Neuraxial medications: intrathecal PF morphine Opiod-related complaints: none Patient feedback: Patient satisfied with post-operative pain management.
[2019-05-03 19:43] VITALS: BP 118/65; PULSE 98; RESP 18; TEMP 36.9
[2019-05-04] MEDS: IBUPROFEN 600 MG TABLET PO (04:25)
--- NOTE | 2019-05-04 07:34 | PM.OBPNVD ---
OB - PN: Subj Subjective Date/time seen: 05/04/19 07:34 Patient comments: no complaints baby status: doing well [place] feeding status: pumping and storing OB - PN: Obj Data Labs CBC & Chem 7: 05/03/19 05:12 OB - PN A/P Plan day: 2 Plan: discharge home Time Spent With Patient Time: Total time spent is greater than 50% in coordination of care (as documented) at patient's floor/unit and/or counseling patient: Review of Systems Constitutional: Constitutional: Reports as per HPI Cardiovascular: Cardiovascular: Reports as per HPI Exam Const: General: comfortable Resp: Effort & Inspection: normal respiratory effort Cardio: Rate: regular rate Psych: Appearance: grossly normal Affect: normal affect Attitude: cooperative
[2019-05-04 08:15] VITALS: BP 107/64; PULSE 99; RESP 18; TEMP 36.6; O2SAT 98
[2019-05-04] MEDS: POLYSACCHARIDE IRON COMPLEX 150 MG CAPSULE PO (09:14)
[2019-05-04] MEDS: MULTIVIT/MIN/PREN/FOL AC/IRON TABLET 1 TAB PO (09:15)
--- NOTE | 2019-05-04 10:30 | PC.NURSE ---
Mother is able to independently latch with appropriate positioning/alignment using nipple shield. She denies any nipple discomfort, is feeding as required and waking to feed if needed. Infant is more awake and eagerly feeding with good draws and freq swallowing noted. Mother feels her milk is transitioning in, she last pumped 5 mls after with shield. Discussed use of EBM after each feeding for additional supplementation. Advised to keep accurate records of all output /feedings and call ICP if less than required. Mother is feeding as required and waking infant to feed if needed. Infant is currently meeting outcomes for weight, output, jaundice and feeding frequencies. Mother states she feels confident to continue at home. Reviewed transition to breast milk, signs of adequate intake, and engorgement/relief. Instructed to call ICP if intake/output less than required. Reviewed regular medications mother is taking. Information provided per Elif. Reviewed community resources on the [facility] website and in the Mom/Baby guide. Information on outpatient services provided. Mother has no further questions at this time.
--- NOTE | 2019-05-04 10:52 | PC.NURSE ---
Patient viewed the discharge video Mother & Baby Care, The First Two Weeks . Patient was given the opportunity and encouraged to ask questions. Patient verbalized understanding of information shared and has been given the mother/baby guide for home reference.
--- NOTE | 2019-05-04 12:49 | PC.NURSE ---
Discharge delayed due to order not being entered by Johanna Kay and Dr. Gonzalez needing to talk with parents before discharge.
[2019-05-05 08:38] VITALS: BP 120/60; PULSE 89; RESP 16; TEMP 36.9
--- NOTE | 2019-06-04 08:21 | PM.OBDSVD ---
DS: Diagnosis Admitting Diagnosis Admitting Diagnosis: Encounter for supervision of normal , unspecified, third trimester Discharge Diagnosis (1) Non-reassuring status: Status: Acute (2) with third trimester bleeding, antepartum: Code(s): O46.93 - Antepartum hemorrhage, unspecified, third trimester Status: Acute OB - DS: Summary OB Procedures : NST OB Procedures Intrapartum: OB Procedures: : None Peripartum Data Delivery Method: Section Procedures: Procedures Operation Date: 05/02/19 13:30 Actual Procedures Side Surgeon p Section Miguel Burrows MD complications: none Status at Discharge Functional status at discharge: independent ambulation Time Spent with Patient Time attestation: Total time spent providing and/or coordinating discharge services: Time spent: Less than 30 minutes DS: Data Data Completed and Pending Completed studies during hospitalization: Pending at discharge 05/02/19 13:54 Surgical [PTH] Routine Discharge Plan Discharge Attending physician on discharge: Miguel Burrows Consulting providers: Ileana Kay ; Michel Bhardwaj Discharging Clinician: Ileana Kay Patient Disposition: Home, Self-Care Activity: pelvic rest Diet: regular Wound Care Instructions: follow printed instructions Discharge Instructions: Education: Mom and Baby Guide Given to: Mother Follow-Up: Call your delivering provider's office for an appointment to be seen in: 1 Week Mom and baby should come to the [facility] for the follow-up appointment. Appointment Date/Time: May 05, 2019 at 8:00 am What to expect at your follow-up visit: Blood Pressure Check Physical Assessment Call [phone] if you are unable to keep your appointment time. BREAST CARE: 1. Wear a snug supportive bra. 2. For engorgement discomfort: Breast Feeding: A. Apply warm moist washcloths B. Express milk as needed to relieve engorgement C. Wear loose clothing Bottle Feeding: A. May apply ice packs 3. For sore nipples: A. Identify correct latch-on B. Apply warm moist washcloths before and after nursing C. Air dry nipples after nursing D. May apply Lansinoh cream to nipples ABDOMINAL INCISION: (if applicable) 1. Allow incision to air dry 2. Do NOT use lotions for powders on your incision 3. When showering, allow soap and water to run over the incision, but do not wash incision EPISIOTOMY/PERINEAL CARE: 1. Until bleeding stops, use your kerrie bottle after urinating 2. Change your pad frequently throughout the day 3. You may take sitz baths several times a day (fill your bathtub with warm water and soak for 20 minutes.) Do NOT bathe in the water 4. No tub baths until seen by your physician - You may shower ACTIVITY: 1. Rest as much as possible. 2. Do not exercise or lift anything heavier than your baby (such as laundry or other children.) 3. Avoid stairs or driving as much as possible. 4. Do not put anything into the vagina. No douching, tampons, or sexual activity until seen by physician. NOTIFY PHYSICIAN IF YOU HAVE ANY QUESTIONS OR IF ANY OF THE FOLLOWING SYMPTOMS OCCUR: 1. If your incision becomes red, swollen, or more painful than what you have experienced in the hospital. 2. If your vaginal bleeding becomes foul smelling. 3. If your vaginal bleeding becomes more heavy than a period or if your bleeding changes from pink to bright red. However, you may pass an occasional walnut-sized clot once or twice for the first week . 4. If you experience a sharp, shooting pain in you calves. 5. If you discover a hard, reddened area on your breast or if you experience flu-like symptoms. DIET: 1. Eat regular, well-balanced meals. 2. Drink plenty of fluids da
== END 2019-05-04 12:51 | disposition home or self-care (01) | DRG 540 ==
LOC: ANHLDR 05-02 13:33 → ANHOB2 05-02 17:10
PROVIDERS: Admitting Provider Obstetrics & Gynecology; Visit Provider Obstetrics & Gynecology
PROC: 10D00Z1 Extraction of Products of Conception, Low, Open Approach (ICD-10-PCS; CPT 59514; principal; 2019-05-02 13:30)
DX: O36.8330 Maternal care for abnormalities of the fetal heart rate or rhythm, third trimester, not applicable or unspecified (principal); Z37.0 Single live birth; Z3A.36 36 weeks gestation of pregnancy; O24.429 Gestational diabetes mellitus in childbirth, unspecified control; O99.214 Obesity complicating childbirth; E66.9 Obesity, unspecified; O69.82X0 Labor and delivery complicated by other cord entanglement, without compression, not applicable or unspecified; O67.9 Intrapartum hemorrhage, unspecified; O62.0 Primary inadequate contractions
CPT/HCPCS: 36415; 85025; 86592; 86850; 86900; 86901; 88307; A9270; J0131; J0690; J1885; J2274; J2590; J7120

== ENCOUNTER 2020-03-19 11:08 | Emergency (ER) | payer OTHER, SELFPAY ==
[2020-03-19 11:17] VITALS: BP 119/79; PULSE 87; RESP 16; TEMP 36.9; O2SAT 98
--- NOTE | 2020-03-19 11:20 | ED.URI ---
HPI - URI/Sore Throat General Chief Complaint: Upper Respiratory Infection Stated Complaint: Sore Throat Time Seen by Provider: 03/19/20 11:20 Source: patient and RN notes reviewed History of Present Illness HPI Narrative: Patient is a 29-year-old female who presents the urgent care with complaints of a sore throat that started last night. Patient states that she gargled warm salt water with little relief. Patient states she is also had a lot of postnasal drainage. Reports of a mild headache yesterday that relieved on its own within a short amount of time, without any pain medications. Patient denies of any known exposure to strep or Covid. Denies of any fever, nausea, vomiting. No other acute complaints. No acute distress noted. Patient aware of the plan of care. Some parts of this dictation were generated by voice recognition software and may contain typographical and/or grammatical inaccuracies. Related Data Home Medications Medication Instructions Recorded Confirmed No Home Medications 03/19/20 03/19/20 Allergies Allergy/AdvReac Type Severity Reaction Status Date / Time buspirone Allergy Severe Swelling Verified 03/19/20 11:19 of Lip/Tongue/Throat peanut Allergy Severe Swelling Verified 03/19/20 11:19 of Lip/Tongue/Throat Review of Systems Review of Systems: Narrative: CONSTITUTIONAL: Denies fever, chills, or sweats. EYES: Denies visual changes, redness, or discharge. ENT: Reports of sore throat and postnasal drainage CARDIOVASCULAR: Denies chest pain, palpitations, or edema. RESPIRATORY: Denies cough or dyspnea. GASTROINTESTINAL: Denies abdominal pain, nausea, vomiting, or diarrhea. GENITOURINARY: Denies dysuria or hematuria. SKIN: Denies rash or itching. MUSCULOSKELETAL: Denies back pain, joint pain, or myalgia. NEUROLOGIC: Denies headache, numbness, or weakness. All other systems reviewed are negative, except as documented in HPI. [facility] Past Medical History Medical History (Updated 03/19/20 @ 11:35 by HERI Schwarz) Currently Smoker Yeast infection Family History Family History Other No pertinent family history Social History Social History (Updated 01/14/19 @ 22:43 by Elida Gilbert) Smoking packs per day: 1 Smoking cigarettes per day: 20.0 Years smoked: 6 Smoking pack-years: 6.00 Smoking status: Former smoker Tobacco type: cigarettes Second hand tobacco smoke exposure: No Substance use: never Gender identity (if verbalized by the patient): Female Spiritual care concerns: No Comments At the time of my signature, I reviewed and agree with the nursing past medical, surgical, social, and family history. There is no relevant family history pertinent to the patient complaint. Exam Narrative: Exam Narrative: GENERAL: This is a well-nourished, well-developed patient, in no apparent distress. HEAD: normocephalic, atraumatic. EYES: PERRL. Sclera clear/white. Vision is grossly intact. EARS: External ears normal, auditory canals clear and without drainage, TMs normal without perforation. Hearing grossly intact. NOSE: External nose normal with no obvious nasal discharge, nares without redness, no rhinorrhea. THROAT: Mucous membranes moist, mild erythema noted to posterior oropharynx with mild erythemic bilateral tonsils without exudate or ulceration. Moderate postnasal drainage. NECK: Neck supple CARDIOVASCULAR: Regular rate and rhythm without murmurs, gallops, or rubs. RESPIRATORY: Clear to auscultation. Breath sounds equal bilaterally. No wheezes, rales, or rhonchi. SKIN: warm, intact with no suspicious lesions or rash, good texture and turgor. NEURO: awake, alert, and oriented to person, place and time. There were no obvious focal neurologic abnormalities. EXTREMITIES: No clubbing, cyanosis, or edema. Course Vital Signs Vital signs: Vital Signs Temperature 98.5 F 03/19/20
== END 2020-03-19 11:37 | disposition home or self-care (01) ==
PROVIDERS: Emergency Provider Nurse Practitioner Family
DX: J02.9 Acute pharyngitis, unspecified (principal); Z87.891 Personal history of nicotine dependence
CPT/HCPCS: 87081; 87880; 99213; G0463

== ENCOUNTER 2020-08-21 09:44 | Emergency (ER) | payer OTHER, SELFPAY ==
--- NOTE | ~2020-08-21 | US_ITS ---
EXAMINATION: US venous doppler [facility] DATE: 08/21/2020 11:00 INDICATION: Bilateral lower limb swelling TECHNIQUE: Grayscale ultrasound images without and with compression and Doppler ultrasound images of the bilateral lower extremity veins were obtained. COMPARISON: None. FINDINGS: The visualized portions of right common femoral vein, profunda (deep) femoral vein, femoral vein, pop liteal vein, posterior tibial veins, peroneal veins, gastrocnemius vein and greater saphenous vein ou tflow are patent. The visualized portions of left common femoral vein, profunda femoral vein, femoral vein, popliteal v ein, posterior tibial veins, peroneal veins, gastrocnemius vein and greater saphenous vein outflow ar e patent. IMPRESSION: 1. No deep venous thrombosis in either lower limb. Reviewed, dictated and finalized at location A.
[2020-08-21 10:02] VITALS: BP 120/59; PULSE 98; RESP 18; TEMP 36.6; O2SAT 99
[2020-08-21 10:09] VITALS: O2SAT 100
--- NOTE | 2020-08-21 10:50 | PC.NURSE ---
Pt in ultrasound.
[2020-08-21 11:13] VITALS: BP 107/66; PULSE 90; RESP 20
--- NOTE | 2020-08-21 11:43 | ED.GENADULT ---
HPI - General Adult General Chief complaint: Extremity Problem,Nontraumatic Stated complaint: leg swelling/ Time Seen by Provider: 08/21/20 10:00 Source: patient and RN notes reviewed Mode of arrival: ambulatory Limitations: no limitations History of Present Illness HPI narrative: Patient is a 30-year-old female who presents at 25 weeks per ultrasound G2, P1 91-1/2 weeks of intermittent swelling to the lower extremities which improves with elevation at the end of the day and is worse throughout the day with standing and activity. Patient denies any pain abdominal pain pelvic pain vaginal bleeding discharge chest pain shortness of breath. Patient does have history of tobacco abuse. On arrival patient in no distress denying any pain Related Data Home Medications Medication Instructions Recorded Confirmed No Home Medications 03/19/20 03/19/20 Allergies Allergy/AdvReac Type Severity Reaction Status Date / Time buspirone Allergy Severe Swelling Verified 08/21/20 10:05 of Lip/Tongue/Throat peanut Allergy Severe Swelling Verified 08/21/20 10:05 of Lip/Tongue/Throat Review of Systems Review of Systems: All systems reviewed & are unremarkable except as noted in HPI and below PMFSH Past Medical History Medical History Currently Smoker Yeast infection Family History Family History Other No pertinent family history Social History Social History Smoking packs per day: 1 Smoking cigarettes per day: 20.0 Years smoked: 6 Smoking pack-years: 6.00 Smoking status: Former smoker Tobacco type: cigarettes Second hand tobacco smoke exposure: No Substance use: never Gender identity (if verbalized by the patient): Female Spiritual care concerns: No Exam Narrative: Exam Narrative: GENERAL: Well-appearing, well-nourished, and in no acute distress. HEAD: Normocephalic, atraumatic. EYES: PERRLA and EOMI. ENT: Nares clear, no rhinorrhea or epistaxis. Mucous membranes moist. CHEST: Clear to auscultation. No respiratory distress. No wheezes rales or rhonchi HEART: Regular rate and rhythm. No murmur heard. Normal peripheral pulses. ABDOMEN: Soft, nontender, distended EXTREMITIES: Normal range of motion. No edema. SKIN: Warm, dry, no rash. NEURO: No focal deficits. Alert and oriented x3. Neurovascularly intact. Capillary refill less than 2 seconds PSYCH: Normal mood and affect. Course Course Emergency Course: Patient in the room in no distress aware of case findings treatment plan and diagnosis agreeing to follow-up as instructed or to return if symptoms worsen or concerns Vital Signs Vital signs: Vital Signs Temperature 97.9 F 08/21/20 10:02 Pulse Rate 98 08/21/20 10:02 Respiratory Rate 18 08/21/20 10:02 Blood Pressure 120/59 L 08/21/20 10:02 Pulse Oximetry 99 08/21/20 10:02 Temperature 97.9 F 08/21/20 10:02 Pulse Rate 90 08/21/20 11:13 Respiratory Rate 20 08/21/20 11:13 Blood Pressure 107/66 08/21/20 11:13 Pulse Oximetry 100 08/21/20 10:09 Medical Decision Making MDM Narrative Medical decision making narrative: Patients injury or pain is consistent with musculoskeletal etiology. No signs of neurological or vascular compromise on exam. Compartments and tisues are soft without signs of compartment syndrome. Pain is felt appropriate for further evaluation on an outpatient basis. Patient with likely dependent edema secondary to will order some compression stockings and elevate the extremities follow-up with primary care and business strategist for further evaluation Vital Signs Vital Signs: Vital Signs Temperature 97.9 F 08/21/20 10:02 Pulse Rate 98 08/21/20 10:02 Respiratory Rate 18 08/21/20 10:02 Blood Pressure 120/59 L 08/21/20 10:02 Pulse Ox
[2020-08-21 11:54] VITALS: BP 111/54; PULSE 82; RESP 16; O2SAT 100
== END 2020-08-21 11:55 | disposition home or self-care (01) ==
PROVIDERS: Emergency Provider Emergency Medicine
DX: O26.893 Other specified pregnancy related conditions, third trimester (principal); R60.0 Localized edema; Z87.891 Personal history of nicotine dependence; Z3A.25 25 weeks gestation of pregnancy
CPT/HCPCS: 93970; 99284

== ENCOUNTER 2020-11-05 18:19 | Outpatient (CLI) | payer OTHER, SELFPAY ==
[2020-11-05 19:06] VITALS: BP 129/66; PULSE 100
== END 2020-11-05 18:20 | disposition home or self-care (01) ==
LOC: ANHOBOP 19:05
PROVIDERS: Visit Provider Obstetrics & Gynecology
DX: O36.8193 Decreased fetal movements, unspecified trimester, fetus 3 (principal); Z3A.35 35 weeks gestation of pregnancy
CPT/HCPCS: 59025

== ENCOUNTER 2020-11-27 10:06 | Emergency (ER) | payer OTHER, SELFPAY ==
[2020-11-27 10:19] VITALS: BP 135/79; PULSE 98; RESP 16; TEMP 36.4; O2SAT 99
--- NOTE | 2020-11-27 11:07 | ED.SKABFB ---
HPI - Skin/Abscess/Foreign Bdy General Chief complaint: Skin/Abscess/Foreign Body Stated complaint: Rash Time Seen by Provider: 11/27/20 11:08 Source: patient Mode of arrival: ambulatory Limitations: no limitations History of Present Illness HPI narrative: Alphonse Herron is a 30 yo feale who is 38.5 weeks with 2 nd [facility] with a widespread very itchy red rash on her abdomen chest and neck-she states started 4 days ago initially on her abdomen is spread across her chest and is so pruritic that she cannot tolerate it she has tried using hydrocortisone cream and Benadryl with no effect Related Data Home Medications Medication Instructions Recorded Confirmed vit no.862-tmabe-czo tablet PO 11/27/20 [Alive ] Allergies Allergy/AdvReac Type Severity Reaction Status Date / Time buspirone Allergy Severe Swelling Verified 08/21/20 10:05 of Lip/Tongue/Throat peanut Allergy Severe Swelling Verified 08/21/20 10:05 of Lip/Tongue/Throat Review of Systems Review of Systems: CONSTITUTIONAL: Denies fever, chills, sweats. EYES: Denies visual changes, redness, discharge. ENT: Denies rhinorrhea, congestion, sore throat, otalgia. CARDIOVASCULAR: Denies chest pain, palpitations, edema. RESPIRATORY: Denies dyspnea, wheezing, cough GASTROINTESTINAL: Denies abdominal pain, nausea, vomiting, diarrhea. GENITOURINARY: Denies dysuria, hematuria, abnormal discharge SKIN: Denies rash or itching. Widespread pruritic rash on abdomen and chest NEUROLOGIC: Denies numbness, or focal weakness. PSYCHIATRIC: Denies anxiety or depression. [facility] Past Medical History Medical History Currently Smoker Yeast infection Family History Family History Other No pertinent family history Social History Social History Smoking packs per day: 1 Smoking cigarettes per day: 20.0 Years smoked: 6 Smoking pack-years: 6.00 Smoking status: Former smoker Tobacco type: cigarettes Second hand tobacco smoke exposure: No Substance use: never Gender identity (if verbalized by the patient): Female Spiritual care concerns: No Comments At time of signature, I agree with nursing past medical, surgical, social and family history. There is no relevant family history pertinent to the presenting complaint. Exam Narrative: GENERAL: This is a well-nourished, well-developed patient, in mild distress. HEAD: normocephalic, atraumatic. EYES: Sclera clear/white. Vision is grossly intact. EARS: External ears normal. Hearing grossly intact. NOSE: External nose normal without nasal discharge, nares without redness, no rhinorrhea. THROAT: Mucous membranes moist, NECK: Neck supple, CARDIOVASCULAR: Regular rate and rhythm without murmurs, gallops, or rubs. RESPIRATORY: Clear to auscultation. Breath sounds equal bilaterally. No wheezes, rales, or rhonchi. GASTROINTESTINAL: Abdomen soft, SKIN: warm, intact with red pruritic rash all over her abdomen upper chest and neck, small papules states that pruritic rash is almost intolerable amount NEURO: awake, alert, and oriented to person, place and time. There were no obvious focal neurologic abnormalities. Steady gait EXTREMITIES: Normal range of motion. BACK: Nontender without deformity Course Course Emergency Course: Patient comes with pruritic rash to abdomen chest-she is 38-week and 1/2 weeks , tried hydrocortisone and Benadryl with no effect Add taper pack of prednisone and told her to call her [employer] Vital Signs Vital signs: Vital Signs Temperature 97.6 F 11/27/20 10:19 Pulse Rate 98 11/27/20 10:19 Respiratory Rate 16 11/27/20 10:19 Blood Pressure 135/79 11/27/20 10:19 Pulse Oximetry 99 11/27/20 10:19 Temperature 97.6 F 0
== END 2020-11-27 11:29 | disposition home or self-care (01) ==
PROVIDERS: Emergency Provider Nurse Practitioner
DX: O26.86 Pruritic urticarial papules and plaques of pregnancy (PUPPP) (principal); Z3A.38 38 weeks gestation of pregnancy; Z87.891 Personal history of nicotine dependence
CPT/HCPCS: 99213; G0463

== ENCOUNTER 2022-01-08 10:41 | Outpatient (CLI) | payer OTHER, SELFPAY ==
--- NOTE | ~2022-01-08 | US_ITS ---
US breast LT limited 01/08/2022 11:33 Indication: Left breast infection. Patient on antibiotics. Wound drainage. Procedure: High-resolution Limited ultrasound of the left breast Comparison: Ultrasound dated 03/16/2019 Findings: There is subcutaneous edema in the left breast. No discrete drainable fluid collection is i dentified to suggest abscess. In the subcutaneous tissues there is a subtle hypoechoic area, although no discrete mass identified. This is of doubtful clinical significance. Impression: 1: Subcutaneous edema in the subcutaneous area without discrete drainable fluid collection. 2: Subtle subcutaneous hypoechoic area in the subareolar location measuring 8 x 7 x 2 mm, possibly p hlegmonous change. Consider follow-up ultrasound in 4-6 weeks following appropriate therapy to assess for resolution. Reviewed, dictated and finalized at location A. Impression: 1: Subcutaneous edema in the subcutaneous area without discrete drainable fluid collection. 2: Subtle subcutaneous hypoechoic area in the subareolar location measuring 8 x 7 x 2 mm, possibly phlegmonous change. Consider follow-up ultrasound in 4-6 w eeks following appropriate therapy to assess for resolution.
== END 2022-01-08 10:42 | disposition home or self-care (01) ==
PROVIDERS: Visit Provider Nurse Practitioner
DX: N61.1 Abscess of the breast and nipple (principal)
CPT/HCPCS: 76642

== ENCOUNTER 2022-11-01 18:44 | Emergency (ER) | payer OTHER, SELFPAY ==
[2022-11-01 18:54] VITALS: BP 125/77; PULSE 75; RESP 16; TEMP 36.9; O2SAT 100
--- NOTE | 2022-11-01 18:54 | ED.FEMALEGU ---
HPI - Female Genitourinary General Chief complaint: Urogenital-Female Stated complaint: UTI Time Seen by Provider: 11/01/22 18:54 Source: patient Mode of arrival: ambulatory Limitations: no limitations History of Present Illness HPI Narrative: Jonny is a 32-year-old female patient presenting to the clinic today with complaints of a possible urinary tract infection. She reports she has had some burning with urination and urgency with frequency for the past 24 hours. No back pain or abdominal pain. No fever or chills. Related Data Home Medications Medication Instructions Recorded Confirmed vitamin no.138-folic acid tablet PO 11/27/20 400 mcg-dha 25 mg chewable tablet (Alive ) Allergies Allergy/AdvReac Type Severity Reaction Status Date / Time buspirone Allergy Severe Swelling Verified 08/21/20 10:05 of Lip/Tongue/Throat peanut Allergy Severe Swelling Verified 08/21/20 10:05 of Lip/Tongue/Throat Review of Systems Review of Systems: Pertinent positives per HPI. Patient denies any fever, chills, rash, headache, visual changes, dizziness, cough, runny nose, sore throat, shortness of breath, chest pain, palpitations, nausea, vomiting, diarrhea, constipation, abdominal pain, PMFSH Past Medical History Medical History Currently Smoker Yeast infection Family History Family History Other No pertinent family history Social History Social History Smoking packs per day: 1 Smoking cigarettes per day: 20.0 Years smoked: 6 Smoking pack-years: 6.00 Smoking status: Former smoker Tobacco type: cigarettes Second hand tobacco smoke exposure: No Substance use: never Gender identity (if verbalized by the patient): Female Spiritual care concerns: No Comments At the time of my signature, I reviewed and agree with the nursing past medical, surgical, social, and family history. There is no relevant family history pertinent to the patient complaint. Exam Narrative: General: Well-developed, well nourished, in no apparent distress. Head: Normocephalic, atraumatic. Cardio: Regular rate and rhythm, s1 and s2 normal, no murmur appreciated. Resp: Clear to auscultation bilaterally, no rhonchi, rales, wheezing or rubs. Abdomen: Soft, pliable, bowel sounds present in all quadrants, mild suprapubic tender to palpation, no organomegly, no CVAT tenderness. Course Course Emergency Course: Portions of this record may have been created with voice recognition software. Level of Care: Express Care Visit Vital Signs Vital signs: Vital signs reviewed MDM - Female Genitourinary MDM Narrative Medical decision making narrative: At the time of visit patient is resting comfortably on the exam table. UA was performed and is positive for leukocytes and blood. UA will be sent for culture. Preg test was negative. Will send in prescription for Macrobid and Pyridium. Supportive measures were discussed with the patient she voiced understanding discharge instructions and agrees to treatment plan. Differential Diagnosis Differential diagnosis: Likely urinary tract infection and cystitis Discharge Plan Discharge Clinical Impression: UTI (urinary tract infection) Qualifiers: Urinary tract infection type: acute cystitis Hematuria presence: with hematuria Qualified Code(s): N30.01 - Acute cystitis with hematuria Patient Disposition: Home, Self-Care Condition: Stable Instructions: Antibiotic Form, Urinary Tract Infection in Women (ED) Additional Instructions: UA positive for leukocytes and blood test was negative in the clinic today Will send urine for culture Take Macrobid and Pyridium as prescribed Increase fluids and stay well hydrated Wipe front to saba
== END 2022-11-01 19:20 | disposition home or self-care (01) ==
PROVIDERS: Emergency Provider Nurse Practitioner Family
DX: N30.01 Acute cystitis with hematuria (principal); Z87.891 Personal history of nicotine dependence
CPT/HCPCS: 81003; 81025; 87077; 87086; 87186; 99213; G0463

== ENCOUNTER 2023-08-05 12:26 | Emergency (ER) | payer OTHER, SELFPAY ==
--- NOTE | 2023-08-05 12:28 | ED.FEMALEGU ---
HPI - Female Genitourinary General Chief complaint: Urogenital-Female Stated complaint: urinary issue Time Seen by Provider: 08/05/23 12:28 Source: patient Mode of arrival: ambulatory Limitations: no limitations History of Present Illness HPI Narrative: Patient is a 32-year-old female who presents with 2 weeks of urinary issues. Patient was seen by OBGYN and was given antibiotics for UTI. Patient was told her urine showed no infection after culture and was diagnosed with interstitial cystitis. Patient was also given Pyridium with no relief of symptoms. The last 3 days patient has had decreased urine output and feels like her bladder is distended. Patient also having swollen lymph nodes and groin. Denies any fever, chills, nausea, vomiting, diarrhea. Patient was told she would be referred to Urology if symptoms do not improve. MD elicited complaint: dysuria Related Data Allergies Allergy/AdvReac Type Severity Reaction Status Date / Time buspirone Allergy Severe Swelling Verified 08/05/23 12:41 of Lip/Tongue/Throat peanut Allergy Severe Swelling Verified 08/05/23 12:41 of Lip/Tongue/Throat Review of Systems Review of Systems: All systems reviewed & are unremarkable except as noted in HPI and below Constitutional: Constitutional: Denies chills, Denies fever(s), Denies headache(s), Denies malaise and Denies weakness Eyes: Eyes: Denies change in vision, Denies eye discharge and Denies irritation ENT: Denies otalgia, Denies headache(s), Denies nasal congestion, Denies nasal discharge, Denies sinus pain and Denies sore throat Cardiovascular: Cardiovascular: Denies chest pain, Denies edema, Denies palpitations and Denies dyspnea Respiratory: Respiratory: Denies cough and Denies dyspnea Gastrointestinal: Gastrointestinal: Denies abdominal pain, Denies diarrhea, Denies nausea and Denies vomiting Genitourinary: Genitourinary: Denies hematuria, Denies nocturia, Denies dysuria, Denies flank pain, Reports urinary urgency and Reports other (Urinary retention) Musculoskeletal: Musculoskeletal: Denies back pain and Denies numbness Integumentary/Breasts: Skin/Breast: Denies pruritus and Denies rash Neurologic: Denies headache(s), Denies numbness and Denies weakness Psychiatric: Psychiatric: Reports no additional psychiatric complaints Endocrine: Endocrine: Denies palpitations PMFSH Past Medical History Medical History Currently Smoker Yeast infection Family History Family History Other No pertinent family history Social History Social History Smoking packs per day: 1 Smoking cigarettes per day: 20.0 Years smoked: 6 Smoking pack-years: 6.00 Smoking status: Former smoker Tobacco type: cigarettes Second hand tobacco smoke exposure: No Substance use: never Gender identity (if verbalized by the patient): Female Spiritual care concerns: No Comments At time of signature, agree with nursing past medical, surgical, social and family history. There is no relevant family history pertinent to the presenting complaint. Exam Const: General: cooperative, healthy appearing, comfortable, no acute distress and well nourished Nutritional Appearance: well nourished Orientation/consciousness: patient oriented x3 HENMT: Head: normocephalic and atraumatic Ears: external ears normal Face/Nose/Sinus: Normal external nose present, Normal nares present and normal facial exam Face and sinus: normal facial exam Eyes: General: appearance normal, both eyes and all related structures Pupils: Equal, round and reactive pupils present EOM: EOMs intact bilaterally Neck: Neck: normal visual inspection, full ROM and supple Chest: Chest palpation & inspection: normal inspection of the chest Resp: Effort & Inspection: normal respi
[2023-08-05 12:48] VITALS: BP 126/59; PULSE 91; RESP 16; TEMP 37.6; O2SAT 99
== END 2023-08-05 13:18 | disposition short-term general hospital (02) ==
PROVIDERS: Emergency Provider Nurse Practitioner Family
DX: R33.9 Retention of urine, unspecified (principal); Z87.891 Personal history of nicotine dependence
CPT/HCPCS: 99212; G0463

== ENCOUNTER 2023-08-05 13:54 | Emergency (ER) | payer OTHER, SELFPAY ==
[2023-08-05 13:56] VITALS: BP 154/56; PULSE 97; RESP 20; TEMP 36.7; O2SAT 98
[2023-08-05 15:14] LABS: Basophils Percent Auto 0.2 % (0.2-1.2); Eosinophils Absolute Auto 0.1 K/mm3 (0-0.3); Hematocrit 40.6 % (37.0-47.0); Hemoglobin 13.4 g/dL (12.0-15.0); Immature Granulocyte Absolute 0.02 K/mm3 (0.00-0.031); Immature Granulocyte Percent A 0.2 % (0-0.5); Lymphocytes Absolute Auto 2.38 K/mm3 (0.9-3.2); Lymphocytes Percent Auto 29.6 % (18.3-44.2); Mean Corpuscular Hemoglobin 31.7 pg (26-34); Mean Platelet Volume 9.7 fl (7.4-10.4); Monocytes Absolute Auto 0.4 K/mm3 (0.1-0.6); Monocytes Percent Auto 5.1 % (2.6-8.5); Neutrophils Absolute Auto 5.1 K/mm3 (1.3-6.7); Neutrophils Percent Auto 63.9 % (45.5-73.1); Platelet Count Result 182 k/mm3 (150-375); Red Blood Count 4.23 M/mm3 (4.2-5.4); Red Cell Distribution Width 12.2 % (11.5-14.5)
[2023-08-05 15:20] LABS: Appearance Urine Clear (Clear); Bilirubin Urine Negative (Negative); Blood Urine Negative (Negative); Color Urine Dark Yellow (Yellow); Glucose Urine UA Negative (Negative); Ketones Urine Negative (Negative); Leukocyte Esterase Ur Negative LEU/UL (Negative); Nitrate Urine Negative (Negative); Protein Urine Negative (Negative); Urobilinogen Urine 0.2 mg/dL (<2.0); pH Urine 7.5 (5.0-9.0)
[2023-08-05 15:21] LABS: Add Urine Microscopic? NO
[2023-08-05 15:49] LABS: Alanine Aminotransferase 13 U/L (6-35); Albumin Level 4.4 g/dL (3.5-5.1); Alkaline Phosphatase 59 U/L (38-126); Anion Gap 4 mmol/L (4-12); Aspartate Amino Transferase 19 U/L (14-36); Bilirubin,Total 0.5 mg/dL (0.2-1.3); Blood Urea Nitrogen 11 mg/dL (7-17); Calcium 9.2 mg/dL (8.4-10.2); Carbon Dioxide 28 mmol/L (22-30); Chloride 107 mmol/L (98-107); Estimated CRCL calculation 106 ml/min; Estimated Glomerular Filt Rate > 60; Glucose 87 mg/dL (65-110); Lipase 60 U/L (23-300); Potassium 3.7 mmol/L (3.4-5.0); Sodium 139 mmol/L (137-145)
--- NOTE | 2023-08-05 16:08 | ED.GENADULT ---
HPI - General Adult General Chief complaint: Urogenital-Female Stated complaint: urinary retention Time Seen by Provider: 08/05/23 15:06 History of Present Illness HPI narrative: 32-year-old female presented emergency department for evaluation for urinary symptoms. patient reports symptoms have been going on for the last few days. Related Data Allergies Allergy/AdvReac Type Severity Reaction Status Date / Time buspirone Allergy Severe Swelling Verified 08/05/23 12:41 of Lip/Tongue/Throat peanut Allergy Severe Swelling Verified 08/05/23 12:41 of Lip/Tongue/Throat Review of Systems Review of Systems: All systems reviewed & are unremarkable except as noted in HPI and below PMFSH Past Medical History Medical History Currently Smoker Yeast infection Family History Family History Other No pertinent family history Social History Social History Smoking packs per day: 1 Smoking cigarettes per day: 20.0 Years smoked: 6 Smoking pack-years: 6.00 Smoking status: Former smoker Tobacco type: cigarettes Second hand tobacco smoke exposure: No Substance use: never Gender identity (if verbalized by the patient): Female Spiritual care concerns: No Exam Narrative: APPEARANCE: Well appearing, no pain, no distress, well-nourished. HEAD: normocephalic, atraumatic. EYES: PERRLA/EOMI, conjunctivae clear. NOSE: Normal no drainage EARS:TMS clear with good light reflex. THROAT: Pharynx clear, no exudate. NECK: Supple. No adenopathy, no masses. RESPIRATORY: Airway patent, respirations nonlabored. Clear to auscultation bilaterally, no rales, rhonchi, wheezing. CARDIOVASCULAR: Regular rate and rhythm without murmurs rubs or gallops. ABDOMINAL: Soft, nontender, nondistended, normal bowel sounds MUSCULOSKELETAL: Moves all extremities. Strength/ROM intact, No edema, No calf tenderness. NEURO: Alert. Cranial nerves II through XII intact. Grossly intact SKIN: Warm, dry. Normal Color Course Vital Signs Vital signs: Vital Signs Temperature 98.1 F 08/05/23 13:56 Pulse Rate 97 08/05/23 13:56 Respiratory Rate 20 08/05/23 13:56 Blood Pressure 154/56 H 08/05/23 13:56 Pulse Oximetry 98 08/05/23 13:56 Oxygen Delivery Room Air 08/05/23 13:56 Temperature 98.1 F 08/05/23 13:56 Pulse Rate 80 08/05/23 16:23 Respiratory Rate 14 08/05/23 16:23 Blood Pressure 128/84 08/05/23 16:23 Pulse Oximetry 99 08/05/23 16:23 Oxygen Delivery Room Air 08/05/23 13:56 Medical Decision Making MDM Narrative Medical decision making narrative: 32-year-old female presenting to the emergency department for evaluation for urinary retention. Patient's bladder scan showed greater than 500 mL of retained urine postvoid. patient had a Hu catheter placed and drained greater than 500 mL. Patient is afebrile with no leukocytosis and a stable hemoglobin, urinary analysis shows no evidence of infection. patient has normal kidney function. Due to patient having urinary retention the Hu catheter will remain in place. Patient does have follow-up with urology next week at [place]. Differential Diagnosis Differential Diagnosis: urinary retention, urinary tract infection, abdominal pain Vital Signs Vital Signs: Vital Signs Temperature 98.1 F 08/05/23 13:56 Pulse Rate 97 08/05/23 13:56 Respiratory Rate 20 08/05/23 13:56 Blood Pressure 154/56 H 08/05/23 13:56 Pulse Oximetry 98 08/05/23 13:56 Oxygen Delivery Room Air 08/05/23 13:56 Temperature 98.1 F 08/05/23 13:56 Pulse Rate 80 08/05/23 16:23 Respiratory Rate 14 08/05/23 16:23 Blood Pressure 128/84 08/05/23 16:23 Pulse Oximetry 99 08/05/23 16:23 Oxygen Delivery Room Air 08/05/23 13:56 Lab Data
[2023-08-05 16:23] VITALS: BP 128/84; PULSE 80; RESP 14; O2SAT 99
== END 2023-08-05 16:23 | disposition home or self-care (01) ==
PROVIDERS: Physician Assistant; Emergency Provider Emergency Medicine
DX: R33.9 Retention of urine, unspecified (principal); Z87.891 Personal history of nicotine dependence
CPT/HCPCS: 36415; 51702; 80053; 81003; 81025; 83690; 85025; 99283

== ENCOUNTER 2024-03-26 17:27 | Emergency (ER) | payer OTHER, SELFPAY ==
[2024-03-26 17:42] VITALS: BP 134/84; PULSE 81; RESP 16; TEMP 36.7; O2SAT 99
[2024-03-26 17:52] LABS: EDUAAPPEAR Clear; EDUABILI Negative (Negative); EDUABLOOD Negative (Negative); EDUACOLOR1 Yellow; EDUAGLUCOSE Negative (Negative); EDUAKETONE Negative (Negative); EDUALEUKO Negative (Negative); EDUANITRATE Negative (Negative); EDUAPROTEIN Negative (Negative); EDUAUROBILI 0.2
--- NOTE | 2024-03-26 18:12 | ED.ABDPAIN ---
HPI - Abdominal Pain General Chief Complaint: Urogenital-Female Stated Complaint: abdominal pain Time Seen by Provider: 03/26/24 17:56 Source: patient and RN notes reviewed Mode of arrival: ambulatory Limitations: no limitations History of Present Illness HPI narrative: Patient presents today complaining of lower abdominal pain that started earlier today. Pain occasionally radiates to her rectum. Denies any additional symptoms to include nausea, vomiting, diarrhea, fever, dysuria. Currently rates her pain 5/10 and has tried no [id number] treatment prior to arrival. LMP 03/10/2024. Patient still has her gallbladder and appendix. Related Data Home Medications ?Medication ?Instructions ?Recorded ?Confirmed ?Last Taken ?Type fluconazole 150 mg tablet mg 03/26/24 Unknown History Allergies Allergy/AdvReac Type Severity Reaction Status Date / Time buspirone Allergy Severe Swelling Verified 03/26/24 17:35 of Lip/Tongue/Throat peanut Allergy Severe Swelling Verified 03/26/24 17:35 of Lip/Tongue/Throat Review of Systems Review of Systems: CONSTITUTIONAL: Denies body aches, fever, chills, or sweats. EYES: Denies visual changes, redness, or discharge. ENT: Denies rhinorrhea, congestion, sore throat, or otalgia. CARDIOVASCULAR: Denies chest pain, palpitations, or edema. RESPIRATORY: Denies cough or dyspnea. GASTROINTESTINAL: Denies nausea, vomiting, or diarrhea.+ abdominal pain GENITOURINARY: Denies dysuria or hematuria. SKIN: Denies rash, itching, or wounds. MUSCULOSKELETAL: Denies back pain, joint pain, or myalgia. NEUROLOGIC: Denies headache, numbness, tingling, or weakness. PSYCH: Denies depression or anxiety. [facility] Past Medical History Medical History Smoker Yeast infection Currently Family History Family History Other No pertinent family history Social History Social History (Updated 03/26/24 @ 18:14 by Kylie Love, [employer], ) Years smoked: 6 Smoking status: Former smoker Tobacco type: cigarettes Second hand tobacco smoke exposure: No Substance use: never Gender identity (if verbalized by the patient): Female Spiritual care concerns: No Comments At time of signature, I have reviewed and agree with nursing past medical, surgical, social and family history unless otherwise noted. Please see nursing chart for further information. There is no relevant family history pertinent to the presenting complaint Exam Narrative: GENERAL: Well-appearing, well-nourished, and in no acute distress. HEAD: Normocephalic, atraumatic. EYES: EOMI. No redness or drainage. Conjunctivae normal. ENT: Mucous membranes pink and moist. NECK: Normal AROM. CHEST: No respiratory distress. Clear to auscultation. HEART: Regular rate and rhythm. No murmur appreciated. Normal peripheral pulses. ABDOMEN: Soft, nondistended, normal active bowel sounds. Tenderness to the right lower quadrant and suprapubic area with rebound. + heel jar EXTREMITIES: Normal range of motion. No edema. SKIN: Warm, dry, no rash. Capillary refill normal. Normal skin turgor. NEURO: No focal deficits. Alert and oriented x3. Gait steady. PSYCH: Normal affect. No signs of depression or anxiety. Course Course Level of Care: Express Care Visit Vital Signs Vital signs: Vital Signs Temperature 98.0 F 03/26/24 17:42 Pulse Rate 81 03/26/24 17:42 Respiratory Rate 16 03/26/24 17:42 Blood Pressure 134/84 03/26/24 17:42 Pulse Oximetry 99 03/26/24 17:42 Oxygen Delivery Room Air 03/26/24 17:42 Temperature 98.0 F 03/26/24 17:42 Pulse Rate 81 03/26/24 17:42 Respiratory Rate 16 03/26/24 17:42 Blood Pressure 134/84 03/26/24 17:42 Pulse Oximetry 99 03/26/24 17:42 Oxygen Delivery Room Air 03/26/24 17:42 Reviewed MDM - Abdominal Pain MDM Narrative Medical decision making narrative: Urinalysis is negative. Due to patient's exam and HPI, recommend that she be transferred to the ER for further evaluation. Patient declines transfer at this time. After discussion regarding benefits of transfer and risks of going home, patient will sign out AMA. States she will go if symptoms worsen. Differential Diagnosis Differential diagnosis: Likely abdominal pain, acute appendicitis and other (UTI, ovarian cyst) Lab Data Attestation: I reviewed the patient's lab results. Labs: Lab Results 03/26/24 Range/Units 17:49 POC Urine Color Yellow POC Urine Clarity Clear POC Urine pH 6.0 POC Ur Specif [place] 1.020 POC Urine Protein Negative (Negative) POC Ur Glucose (UA) Negative (Negative) POC Urine Ketones Negative (Negative) POC Urine Blood Negative (Negative) POC Urine Nitrite Negative (Negative) POC Urine Bilirubin Negative (Negative) POC Urine Urobilinogen 0.2 POC U Leukocyte Esteras Negative (Negative) Critical Care Time Critical Care Time Critical Care Time: No Discharge Plan Discharge Clinical Impression: Abdominal rebound tenderness of right lower quadrant Patient Disposition: Left Against Medical Advice Condition: Stable Additional Instructions: You have declined transfer to the ER for further evaluation today. Your urine is negative for infection. Your blood pressure was elevated above 120/80 today at Urgent Care. This puts you above the threshold for follow up. Please schedule a followup visit with your personal physician as soon as possible, for further evaluation and treatment. Even blood pressure exceeding 120/80 may indicate pre-hypertension. Patient Language: French Prescriptions: No Action fluconazole 150 mg tablet Follow-up/Referrals: UNKNOWN,DOCTOR [Primary Care Provider] - Time of Disposition: 18:10
== END 2024-03-26 18:12 | disposition left against medical advice (07) ==
PROVIDERS: Emergency Provider Nurse Practitioner
DX: R10.823 Right lower quadrant rebound abdominal tenderness (principal); Z87.891 Personal history of nicotine dependence
CPT/HCPCS: 81003; 99212; G0463

== ENCOUNTER 2024-03-30 12:55 | Emergency (ER) | payer OTHER, SELFPAY ==
--- NOTE | ~2024-03-30 | US_ITS ---
EXAMINATION: US pelvic complete DATE: 03/30/2024 15:02 INDICATION: Pelvic pain TECHNIQUE: Multiple transabdominal and endovaginal sonographic images of the pelvis were obtained. COMPARISON: None. FINDINGS: The uterus measures 10.2 x 3.4 x 4.7 cm. The endometrial complex measures 8 mm mm in thickness. The right ovary measures 3.6 x 3.4 x 2.3 cm. The left ovary measures 3.2 x 3.0 x 2.9 cm. There is normal vascular flow in the ovaries on color Doppler. There is no free fluid in the pelvis. IMPRESSION: 1. Normal pelvic ultrasound. Reviewed, dictated and finalized at location A. S ASSISTANT DISPLAYS
[2024-03-30 12:59] VITALS: BP 128/57; PULSE 88; RESP 16; TEMP 36.4; O2SAT 100
--- OUTSIDE RECORDS SUMMARY | 2024-03-30 13:05 | XMS_ITS | Encounter Summary ---
Author Organization [facility] Health Address [address] [place] [address] Care Team Providers Care Engineer Chief Name Role Phone Lidia Pope MD Unavailable Encounter Details Date Type Department Care Team (Late st Contact Info) Description 04/26/2013 [facility] Outpatient Visit CG DEFAULT [address] [place] [address] Unknown, Provider Social History Tobacco Use Types Packs/Day Years Used Date Smoking Tobacco: Never Alcohol Use Standard Drinks/Week Comments Not Asked 0 (1 standard drink = 0.6 oz pur e alcohol) Sex and Gender Information Value Date Recorded Sex Assigned at Not on file Gender Identity Not on file Sexual Orientation Not on file documented as of this encounter Plan of Treatment Not on file documented as of this encounter Visit Diagnoses Not on filedocumented in this encounter Care Teams Engineer Chief Relationship Specialty Start Date End Date Lidia Pope MD PCP - Pediatrics 03/13/09 documented as of this encounter
--- OUTSIDE RECORDS SUMMARY | 2024-03-30 13:05 | XMS_ITS | Referral Summary ---
Author Organization [facility] Address [address] [place] [address] Care Team Providers Care Glove Turner Name Role Phone Lidia Pope MD Unavailable Source Comments [facility],non-owned Affiliates and Associated Physician Practices is amultiple site organization consisting of ambulatory clinics and hospital sitesin [place], [place] and [place]. This disclosure is being madepursuant to the Care Everywhere program and may not contain all information available regarding this patient. Last updated 17.[facility] Allergies Active Allergy Reactions Criticality Noted Date Comments Peanut-Derived 04/28/2010 Headache, tongue tingles. Medications * Be aware that medications may not be up to date on this document. Alwaysverify current medications with the patient. Medication Sig Dispensed Refills Start Date End Date Status omeprazole (PRILOSEC) 20 MG capsuleIndications:G yousif-esophageal reflux Take 1 Cap by mouth daily before breakfast for 30 days. 30 Cap 0 07/04/2012 Active Etonogestrel (IMPLANON SC) Active malathion (OVIDE) 0.5 % lotion Apply to dry hair until hair and scalp are wet. Air dry. Shampoo out in 8 hours. 2 Bottle 1 04/26/2013 Active Active Problems Estimated Date of Delivery Comme nts Yes 05/25/2019 No known active problems Immunizations Name Administration Dates Next Due DPT 11/02/1996, 5,08/31/1994,02/18/1993,10/07/18 93 HEP B VACCINE, PED/ADOL 07/01/1994,1992, HIB-PRP-OMP 3 DOSE 07/01/1994,02/18/1993, 993 MMR 11/02/1996,07/01/1994 POLIO OPV 11/02/1996, 5,08/31/1994,02/18/1993,02/18/19 93,1992 PPD 05/19/2006,10/11/1997 TDAP (7yrs+) 05/19/2006 Social History Tobacco Use Types Packs/Day Years Used Date Smoking Tobacco: Never Alcohol Use Standard Drinks/Week Comments Not Asked 0 (1 standard drink = 0.6 oz pur e alcohol) Estimated Date of Delivery Comme nts Yes 05/25/2019 Sex and Gender Information Value Date Recorded Sex Assigned at Not on file Gender Identity Not on file Sexual Orientation Not on file Last Filed Vital Signs Vital Sign Reading Time Taken Comments Blood Pressure 102/52 02/16/2014 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 Pulse 95 02/16/2014 11:36 AM 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
--- OUTSIDE RECORDS SUMMARY | 2024-03-30 13:05 | XMS_ITS | Continuity of Care Document ---
Author Organization [facility] Address [address] [facility] [place] [address] Phone Care Team Providers Care Shaker Out Name Role Phone Isidro Crawford MD Unavailable Unavailable Allergies, Adverse Reactions, Alerts Substance Reaction Status Criticality No Known Allergies Active No Inform ation Medications Medication Instructions Dosage Effective Dates (start - stop) Status Comments Lexapro 20 mg tablet take 1 tablet (20MG) by oral route every day 20 MG - Active Klonopin 1 mg tablet take 1 tablet (1MG) by oral route every 4 - 6 hours as needed 1 MG - Active PRN for anxiety, avoid driving or operate machines Lamictal 100 mg tablet take 1 tablet (100MG) by oral route every day 100 MG - Active Procedures Procedure Date OFFICE/OUTPATIENT VISIT, EST OFFICE/OUTPATIENT VISIT, EST OFFICE/OUTPATIENT VISIT, EST OFFICE/OUTPATIENT VISIT, EST PREV VISIT, NEW, AGE 18-39 OFFICE/OUTPATIENT VISIT, NEW Advance Directives Directive Yes / No Effective Date File Name No Information Encounters Encounter Description Practice Location Reason(s) For Visit Diagnoses Date Provider Providers Copied on Encounter OFFICE/OUTPA TIENT VISIT, EST [facility], [address] [facility] [facility] [place], [place], [id number], tel:[phone] [facility] anxiety (chief complaint) mood swing (chief complaint) Generalized anxiety disorderBipolar disorder, unspecifiedDepressi on [address] [facility] [place], [id number] , [place]. tel:[phone] Referring Provider: Isidro Crawford, [address], [place], [place], [id number]. tel:[phone] OFFICE/OUTPA TIENT VISIT, [facility], [address], [place], [place], [id number], [place] [phone] [facility] anxiety (chief complaint) panic attacks (chief complaint) Bipolar disorder, unspecifiedGenerali zed anxiety disorderDepression 0-[address]. [address], [place], [place], [id number] , [place]. [phone] Referring Provider: [address], [place], [place], [id number]. tel:[phone] OFFICE/OUTPA TIENT VISIT, [facility], [address], [place], [place], [id number], [place] tel:[phone] [facility] anxiety (chief complaint) mood swing (chief complaint) Major depressive affective disorder, single episode, mild degreeGeneralized anxiety disorderBipolar disorder, unspecified [address], [place], [place], [id number] , [place]. [phone] Referring Provider: [address], [place], [place], [id number]. tel:[phone] OFFICE/OUTPA TIENT VISIT, [facility], [address], [place], [place], [id number], [place] tel:[phone] [facility] anxiety (chief complaint) Major depressive affective disorder, single episode, mild degreeGeneralized anxiety disorder [address], [place], [place], [id number] , [place]. [phone] Referring Provider: [address], [place], [place], [id number]. tel:[phone] PREV VISIT, NEW, AGE 18-39 [facility], [address], [place], [place], [id number], [place] tel:[phone] [facility] Physical (chief complaint) Routine Medical ExamGeneralized anxiety disorderMajor depressive affective disorder, single episode, mild degreeRoutine Medical Exam [address], [place], [place], [id number] , [place]. tel:[phone] Family History Family Member Type Diagnosis Age At Onset Mother Problem (finding) Bipolar Disorder Mother Problem (finding) Anxiety Father Problem (finding) Coronary artery disease Brother Problem (finding) Alive and well Payers Payer name Insurance type Covered democrat ID Authoriza tion(s) No Information Social History Type Description Quantity Date Captured Comments Alcohol Use Details No Caffeine Use Details Unknown Tobacco Use Status No Information Smoking Status Current every day smoker 2013 Sex Female Vital Signs Date / Time: Height Weight BMI Pulse Rate Blood Pressure Temperature Respiratory Rate Body Surface Area Head Circumference BMI percentile Pulse Ox Inhaled Ox 5:54 PM 67.00 in 143.00 lbs 22.3 9 kg/m eter (2) 84 /min 134/76 mm[Hg] 97.6 F 18 /min Chief Complaint And Reason For Visit From encounter dated '09/17/2013 16:30'. anxiety (chief complaint) mood swing (chief complaint) Plan Of Treatment Date Type Action Status Goal Tobacco cessation counseling completed Goal Tobacco cessation counseling completed Goal Tobacco cessation counseling completed Goal Tobacco cessation counseling completed Goal Tobacco cessation counseling completed History Of Present Illness Encounter Date Complaint History Of Prese nt Illness No Information Instructions Date Instruction Additional Infor mation No Information Assessments Type Assessment Date No Information Mental Status Date Cognitive Assessment Orientation - [place] ed to time, place, person, situation.
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
--- OUTSIDE RECORDS SUMMARY | 2024-03-30 13:05 | XMS_ITS | Data Portability ---
Author Organization [facility], [facility] Address [address] [place] [address] Assessment No assessment recorded. Plan of Treatment Reminders Order Date Submit Date Provider Last Modified By Organization Details Last Modified Time Details Appointments None record ed. Lab None record ed. Referral None record ed. Procedures None record ed. Surgeries None record ed. Imaging None record ed. Medication Orders None record ed. Patient TargetsNo targets recorded. Patient InstructionsNo instructions recorded. Reason for Referral None Reported. Problems Name Problem SNOMED Code Status Onset Date Resolution Date Notes Provider Name and Address Organization Details Recorded Time Uterine size for dates discrepa ncy Active 2020 Uterine size-christy e discrepa ncy, third trimeste r; Progress : Stable Added By: Sussy Taylor Add to Current Problems : YES ProblemS tatus: Current Not Available [facility] 2 20:09:05 Gestatio n period, 24 weeks [id number] Completed 202010/27/2020 24 weeks gestatio n of pregnanc y; Progress : Stable Added By: Amanda Martínez Add to Current Problems : NO ProblemS tatus: Resolve Not Available [facility] 2 20:09:05 Gestatio n period, 17 weeks 20985113 Completed 202007/24/2020 17 weeks gestatio n of pregnanc y; Progress : Stable Added By: Micheline Cloud Add to Current Problems : NO ProblemS tatus: Resolve Not Available [facility] 2 19:02:28 Gestatio n period, 21 weeks 50186231 Completed 202010/27/2020 21 weeks gestatio n of pregnanc y; Progress : Stable Added By: Sarai Burkett Add to Current Problems : NO ProblemS tatus: Resolve Not Available [facility] 2 20:09:04 Gestatio n period, 13 weeks 62312957 Completed 202007/24/2020 13 weeks gestatio n of pregnanc y; Progress : Stable Added By: Micheline Cloud Add to Current Problems : NO ProblemS tatus: Resolve Not Available [facility] 2 20:09:03 Gestatio n period, 30 weeks 63390453 Completed 202010/27/2020 30 weeks gestatio n of pregnanc y; Progress : Stable Added By: Sussy Taylor Add to Current Problems : NO ProblemS tatus: Resolve Not Available [facility] 2 20:09:01 Large fetus 762073365 Active 2020 Maternal care for excessiv e growth, third trimeste r, not applicab le or unspecif ied; Progress : Stable Added By: Easton Chase Add to Current Problems : YES ProblemS tatus: Current Not Available [facility] 2 20:09:04 Pregnanc y, childbir th and puerperi um finding Completed 202007/24/2020 Encounte r for supervis ion of normal first pregnanc y, first trimeste r; Progress : Stable Added By: Micheline Cloud Add to Current Problems : NO ProblemS tatus: Resolve Not Available [facility] 2 19:02:55 Gestatio n period, 28 weeks [id number] Completed 202010/27/2020 28 weeks gestatio n of pregnanc y; Progress : Stable Added By: Cathi Braun Add to Current Problems : NO ProblemS tatus: Resolve Not Available [facility] 2 20:09:03 Blood in urine 60128489 Completed 202010/27/2020 Hematuri a, unspecif ied; Progress : Stable Added By: Sarai Burkett Add to Current Problems : NO ProblemS tatus: Resolve Not Available [facility] 2 20:09:01 Acute vaginiti s 47018969 Completed 202007/24/2020 Acute vaginiti s; Severity : Moderate Progress : Stable Added By: Micheline Cloud Add to Current Problems : NO ProblemS tatus: Resolve Not Available [facility] 1 03:37:54 Antenata l ultrasou nd finding 639689316 Completed 202007/24/2020 Encounte r for pregnanc y test, result unknown; Progress : Stable Added By: Tameka Jefferson Add to Current Problems : NO ProblemS tatus: Resolve Not Available [facility] 2 20:09:02 Gestatio n period, 20 weeks 99219671 Completed 202010/27/2020 20 weeks gestatio n of pregnanc y; Progress : Stable Added By: Marleny Hayes Add to Current Problems : NO ProblemS tatus: Resolve Not Available [facility] 2 20:09:02 Acute vulvitis 60148831 Completed 202010/27/2020 Acute vulvitis ; Progress : Stable Added By: Sarai Burkett Add to Current Problems : NO ProblemS tatus: Resolve Not Available [facility] 2 20:09:02 Vaginiti s in pregnanc y 259461231 Completed 202010/27/2020 Infectio n of other part of genital tract in pregnanc y, second trimeste r; Progress : Stable Added By: Micheline Cloud Add to Current Problems : NO ProblemS tatus: Resolve Not Available [facility] 2 20:09:01 Noninfla mmatory disorder of the vagina 92074011 Completed 202010/27/2020 Noninfla mmatory disorder of vagina, unspecif ied; Progress : Stable Added By: Sarai Burkett Add to Current Problems : NO ProblemS tatus: Resolve Not Available [facility] 2 20:09:05 Normal pregnanc y in multigra jhonny [id number] 4106 Active 2020 Encounte r for supervis ion of other normal pregnanc y, second trimeste r; Progress : Stable Added By: Amanda Martínez Add to Current Problems : NO ProblemS tatus: Resolve; Start Date : 07/04/19 21 Encou nter for supervis ion of other normal pregnanc y, third trimeste r; Progress : Stable Added By: Micheline Cloud Add to Current Problems : YES ProblemS tatus: Current Not Available [facility] 2 20:09:03 Gestatio n period, 37 weeks 72853028 Active 2020 37 weeks gestatio n of pregnanc y; Progress : Stable Added By: Tameka Jefferson Add to Current Problems : YES ProblemS tatus: Current Not Available [facility] 2 20:09:04 Gestatio n period, 36 weeks [id number] Completed 202011/19/2020 36 weeks gestatio n of pregnanc y; Progress : Stable Added By: Amanda Martínez Add to Current Problems : NO ProblemS tatus: Resolve Not Available [facility] 2 20:09:02 Gestatio n period, 34 weeks 77947983 Completed 202011/19/2020 34 weeks gestatio n of pregnanc y; Progress : Stable Added By: Tameka Jefferson Add to Current Problems : NO ProblemS tatus: Resolve Not Available [facility] 2 20:09:01 Gestatio n period, 38 weeks 66780124 Active 2020 38 weeks gestatio n of pregnanc y; Progress : Stable Added By: Micheline Cloud Add to Current Problems : YES ProblemS tatus: Current Not Available [facility] 2 20:09:00 Gestatio n period, 32 weeks 9975762 Completed 202010/27/2020 32 weeks gestatio n of pregnanc y; Progress : Stable Added By: Micheline Cloud Add to Current Problems : NO ProblemS tatus: Resolve Not Available [facility] 2 19:02:28 Pain of breast 80912375 Active 2020 Mastodyn ia; Progress : Stable Added By: Liza Dillard Add to Current Problems : YES ProblemS tatus: Current Not Available [facility] 2 19:02:28 Acute vaginiti s 21083694 Active 2020 Acute vaginiti s; Progress : Stable Added By: Micheline Cloud Add to Current Problems : YES ProblemS tatus: Current Not Available [facility] 2 19:02:28 Antenata l screenin g for malforma tion Active 2020 Encounte r for antenata l screenin g for malforma tions; Progress : Stable Added By: Marleny Hayes Add to Current Problems : YES ProblemS tatus: Current Not Available [facility] 2 20:09:01 Depressi on screenin g Active 2020 Encounte r for screenin g for maternal depressi on; Progress : Stable Added By: Micheline Cloud Add to Current Problems : YES ProblemS tatus: Current Not Available [facility] 2 20:09:02 Gestatio n period, 40 weeks 48283312 Active 2020 40 weeks gestatio n of pregnanc y; Progress : Stable Added By: Micheline Cloud Add to Current Problems : YES ProblemS tatus: Current Not Available [facility] 2 20:09:[address] Concept Active 2020 Encounte r for follow-u p examinat ion after complete d treatmen t for conditio ns other than malignan t neoplasm ; Progress : Stable Added By: Amanda Martínez Add to Current Problems : YES ProblemS tatus: Current Not Available [facility] 2 20:09:03 Antenata l screenin g Completed 202011/19/2020 Encounte r for antenata l screenin g for Streptoc occus B; Progress : Stable Added By: Micheline Cloud Add to Current Problems : NO ProblemS tatus: Resolve Encounte r for other specifie d antenata l screenin g; Progress : Stable Added By: Micheline Cloud Add to Current Problems : YES ProblemS tatus: Current; Start Date : 08/18/19 21 Not Available [facility] 2 20:09:04 Right lower quadrant pain 244468873 Active 2020 Right lower quadrant pain; Progress : Stable Added By: Micheline Cloud Add to Current Problems : YES ProblemS tatus: Current Not Available [facility] 2 20:09:04 Mastitis associat ed with lactatio n 552611495 Active 2020 Nonpurul ent mastitis associat ed with the puerperi um; Progress : Stable Added By: Miriam Hernandez Add to Current Problems : YES ProblemS tatus: Current Not Available [facility] 2 20:09:05 Gestatio n period, 39 weeks 31121454 Active 2020 39 weeks gestatio n of pregnanc y; Progress : Stable Added By: Micheline Cloud Add to Current Problems : YES ProblemS tatus: Current Not Available [facility] 2 20:09:05 Notes:Unspecified infection of urinary tract in , third trimester (O23.43) ; OnsetDate: 10/07/2020; Severity: Moderate Progress: Stable Added By: Alicia Buckner Add to Current Problems: YES ProblemStatus: Current Gestational edema, second trimester (O12.02) ; OnsetDate: 08/19/2020; Severity: Moderate Progress: Stable Added By: Amanda Martínez Add to Current Problems: YES ProblemStatus: Current Unspecified infection of urinary tract in , third trimester (O23.43) ; OnsetDate: 10/07/2020; Severity: Moderate Progress: Stable Added By: Alicia Buckner Add to Current Problems: YES ProblemStatus: Current Gestational edema, second trimester (O12.02) ; OnsetDate: 08/19/2020; ResolvedDate: 10/27/2020; Severity: Moderate Progress: Stable Added By: Amanda Martínez Add to Current Problems: NO ProblemStatus: Resolve Unspecified infection of urinary tract in , third trimester (O23.43) ; OnsetDate: 10/07/2020; Progress: Stable Added By: Alicia Buckner Add to Current Problems: YES ProblemStatus: Current Gestational edema, second trimester (O12.02) ; OnsetDate: 08/19/2020; ResolvedDate: 10/27/2020; Progress: Stable Added By: Amanda Martínez Add to Current Problems: NO ProblemStatus: Resolve Problem Notes None recorded. Procedures Surgical History Date Name Laterality Status Provider Name and Address Organization Details Recorded Time delivery completed Liza Dillard [facility] 02/24/2021 12:45:28 0 Date of Last Pap Smear completed [facility] Cream.HR [facility] 02/23/2021 22:40:45 section completed [facility] 02/23/2021 22:40:29 Imaging Results None recorded. Procedure Notes None recorded. Medical Equipment None Reported. Allergies No known drug allergies Medications Name Sig Start Date Stop Date Status Note LastModified by Organization Details LastModified Time amoxicill in 500 mg capsule TAKE 1 CAPSULE BY MOUTH THREE TIMES DAILY UNTIL ALL TAKEN 02/24 completed Not Available Not Available Not Available terconazo le 0.4 % vaginal cream insert 1 applicat orful by vaginal route once daily at bedtime for 7 days 09/16 completed terconaz ole 0.4 % Vaginal Cream RxNorm: [id number] Allow Substitu tion: True Refill Denied: No Edited by: Cathi Multani ) on 09/17/19 Stopped by: Cathi Multani ) on 09/17/19 Not Available Not Available Not Available fluconazo le 150 mg tablet TAKE 1 TABLET BY MOUTH ONCE. IF STILL HAVING SYMPTOMS AFTER 72 HOURS TAKE SECOND DOSE active Not Available Not Available No t Available hydrocodo ne 5 mg-acetam inophen 325 mg tablet TAKE 1 TABLET BY MOUTH EVERY 4 HOURS NEEDED FOR ACUTE PAIN 02/24 completed Not Available Not Available Not Available metronida zole 0.75 % (37.5 mg/5 gram) vaginal gel INSERT ONE APPLICAT ORFUL VAGINALL Y AT BEDTIME FOR 5 DAYS 02/24 completed Not Available Not Available Not Available metronida zole 500 mg tablet take 1 tablet (500 mg) by oral route 2 times per day 02/24 completed Not Available Not Available Not Available lancets check BS 4 x a day 02/24 completed lancets Allow Substitu tion: True Refill Denied: No Edited by: Shirley Caceres ) on 07/12/19 Stopped by: Shirley Caceres ) on Not Available Not Available Not Available famotidin e 20 mg tablet take 1 tablet (20 mg) by oral route 2 times per day 02/24 completed Not Available Not Available Not Available hydrocort isone 2.5 % lotion APPLY THIN LAYER TOPICALL Y TO THE AFFECTED AREA TWICE DAILY 02/24 completed Not Available Not Available Not Available TrumakerToAuterra Ultra Test strips CHECK FOUR TIMES DAILY DIRECTED 02/24 completed Not Available Not Available Not Available cephalexi n 500 mg capsule take 1 capsule (500 mg) by oral route 4 times per day 02/24 completed Not Available Not Available Not Available blood sugar diagnosti c kit check BS 4 x a day 02/24 completed blood sugar diagnost ic kit Allow Substitu tion: True Refill Denied: No Edited by: Shirley Caceres ) on 07/12/19 Stopped by: Shirley Caceres ) on Not Available Not Available Not Available nystatin 100,000 unit/gram topical cream apply to the affected area(s) by topical route 2 times per day 09/16 completed nystatin 100,000 unit/gra m Topical Cream RxNorm: [id number] Allow Substitu tion: True Refill Denied: No Edited by: Cathi Multani ) on 09/17/19 Stopped by: Cathi Multani ) on 09/17/19 Not Available Not Available Not Available ibuprofen 600 mg tablet TAKE 1 TABLET BY MOUTH EVERY 6 HOURS NEEDED active Not Available Not Available No t Available methylpre dnisolone 4 mg tablets in a dose pack FOLLOW PACKAGE DIRECTIO NS 02/24 completed Not Available Not Available Not Available nitrofura ntoin monohydra te/macroc rystals 100 mg capsule TAKE 1 CAPSULE BY MOUTH EVERY 12 HOURS WITH FOOD active Not Available Not Available No t Available Prena1 02/24 completed Prena1 Allow Substitu tion: False Refill Denied: No Refill DateOccu rred: 05/06/19 Edited by: veronica( Ileana Cole) on 06/13/19 Stopped by: veronica( Ileana Cole) on Not Available Not Available Not Available OneTouch Ultra2 Meter USE DIRECTED FOUR TIMES DAILY 02/24 completed Not Available Not Available Not Available OneTouch Delica Plus Lancet 33 gauge CHECK FOUR TIMES DAILY DIRECTED 02/24 completed Not Available Not Available Not Available Vitals Date Recorded Body height Provider Name an d Address Organization Details Last Updated DateTime 02/24/2021 167.64 cm [facility] 02/24/2021 12:41:11 Date Recorded Body mass index (BMI) Body weight Provider Name and Address Organization Details Last Updated DateTime 02/24/2021 32 kg/m2 28034.29 g Liza [facility] 02/24/2021 12:41:55 Date Recorded Systolic blood pressure Diastolic blood pressure Provider Name and Address Organization Details Last Updated DateTime 02/24/2021 118 mm[Hg] 80 mm[Hg] [facility] 02/24/2021 12:42:52 Social History Question Answer Notes LastModified by Organizat ion Details LastModified Time What Is Your Relationship Status? Single Information not available 02/23/2021 Are You Sexually Active? Yes Information not available 02/23/2021 Sex: Unknown Functional Status None recorded. Mental Status None recorded. Family History Relationship Description Onset Age of this Age Resolved Age Notes LastModified by Organization Details LastModified Time Father No current problems or disability [email or web address] Not available 22:39:12 Mother No current problems or disability [email or web address] Not available 22:39:12 Medical History Condition Response Other Cancer N High Blood Pressure N Colon Cancer N Cytomegalovirus N Hyperthyroidism N MRSA N Blood Transfusion N Herpes (HSV) N Breast Cancer N Lung Cancer N Depression N Hypothyroidism N Incontinence N Panic Attacks N Neurological Disorder N Deep Vein Thrombosis N Anxiety Disorder N Autoimmune disease N Arthritis N Shingles N Tuberculosis/Positive PPD N Polycystic Ovarian Syndrome N Cervical Cancer N Hematuria N Chlamydia N Varicosities N Stroke N Seasonal allergies N Crohn's Disease N Alzheimer's/Dementia N COPD/Emphysema N Endometriosis N HPV/Genital Warts N IBS (Irritable Bowel Syndrome) N History of Abnormal Pap N High Cholesterol N Liver Disease N Fibromyalgia N Kidney Infection N Ulcer N Kidney Disease N HIV N Gallbladder disease N Sickle Cell Disease/Trait N Von Willebrand disease N ADD/ADHD N Eating Disorder N Anemia N Diabetes Mellitus (non-insulin dependent ) N Ovarian Problems N Multiple Sclerosis N Gonorrhea N Frequent Urinary Tract infections N Osteopenia N Headaches/migraines N GERD (reflux) N Ovarian Cancer N Diabetes (insulin dependent) N Seizures/Epilepsy N Fibroids N Heart Attack N Asthma N Lupus N Endometrial Cancer N Rubella N Blood Clotting Disorder N Bipolar Disorder N Diabetes Mellitus (during ) N Ulcerative Colitis N Hepatitis N Heart Disease N Pulmonary Embolism N RPR N Chicken Pox N Osteoporosis N Gynecological History Statement/Question Response Date of Last Pap Smear 02/22/2020 Current Control Method None Age at Menarche 14 Obstetrics History GPAL:G 2 P 2 0 0 2 Type Value Full Term 2 Living 2 Total 2 Past Encounters Encounter ID Performer Location Encounter Start Date Encounter Closed Date Diagnosis/Indication Diagnosis SNOMED-CT Code Diagnosis ICD10 Code Diagnosis Note [id number] Amanda Martínez MD [facility] [address] [place] [address] 02/24/2021 12:38:27 02/26/2021 15:11:27 state 76973824 Z39.2 6wks post-op from rLTCS. Doing well, no complaints . Incision well-heale d, discussed no further activity restrictio ns at this time. FOB to get vasectomy for control. F/u PRN or 1 year for next AEX. Health Concerns Section Related Observation LastModified by Organization Detai ls LastModified Time None Recorded Concern Status LastModified by Organization Details LastModified Time None Recorded Advance Directives Directive None Recorded Payers Encounter Date Sequence Insurance Name Policy Number Policy Hilton Covered Member ID Hilton Member ID Guarantor Name 02/24/2021 1 [facility] ON OR AFTER 09/04/20 (MEDICAID REPLACEMENT - HMO) Alphonse Herron [id number] Alphonse Herron Notes Date Note Type Note Provider Name and Address Organization Details Recorded Time 02/24/2021 text/html VisitReported bypatient.Notes:Ariel lantigua is here for 6wkk pp visit. S/p rLTCS on 12/10/20. She continues to do well , no complaints. She continues to ambulate without difficulty, tolerating a regular diet, voiding normally, and having regular bowel movements. Lochia has stopped, has not yet had period. She continues to report good mood, denies significant sadness/anxiety. well. FOB planning to get vasectomy for pp control. Amanda Martínez MD [address] [place], [address], [facility] [employer] 03/02/2021 14:01:41 OBGyn Episode Ob Episode Information Episode Created Date Number of Fetuses Patient Bloodtype Patient rh Status Prepregnancy Weight lbs Domestic Partner Domestic Partner Phone Father Name Personal Computer Network Analyst Status 02/25/20 21 1 CLOSED Fetus Data First Name Last Name Admitted to NICU Weight (g) Sex Living Outcome Pediatric Complications Fetus ID Race Codes Race Delivery Type 4082.32 8 M Full Term [id number] Repeat Laith Calculation Initial Laith Date Initial Exam Date Initial Exam Provider Initial Ultrasound Date Last Menstrual Period Date Ultra Sound Weeks Gestation 0 Eighteen To Twenty Week Laith Update Ultra Sound Date Fundal Height At Umbil Quickening Date Ultra Sound Latest Weeks Gestation Final Laith Confirmed By Final Laith Confirmed Date Final Laith Date Ultra Sound Latest Days Gestation 0 0 Menstrual History Last Menstrual Date Menses Monthly On Bcp Conception Prior Menses Frequency Hcg Plus Date Menarche Onset Age Delivery Information Delivery Date Delivery Type Labor Anesthesia Weeks Gestation Incision Type Labor Labor Length Hrs Delivered By Post Complications Tubal Sterilization Discharge Date Comments 1 40.4 Discharge Information Feeding Method Contraceptive Method Maternal HG B and HCT Levels Ob Episode Information Episode Created Date Number of Fetuses Patient Bloodtype Patient rh Status Prepregnancy Weight lbs Domestic Partner Domestic Partner Phone Father Name Personal Computer Network Analyst Status 02/24/20 21 1 CLOSED Fetus Data First Name Last Name Admitted to NICU Weight (g) Sex Living Outcome Pediatric Complications Fetus ID Race Codes Race Delivery Type 3572.03 7 M Full Term [id number] Primary Laith Calculation Initial Laith Date Initial Exam Date Initial Exam Provider Initial Ultrasound Date Last Menstrual Period Date Ultra Sound Weeks Gestation 0 Eighteen To Twenty Week Laith Update Ultra Sound Date Fundal Height At Umbil Quickening Date Ultra Sound Latest Weeks Gestation Final Laith Confirmed By Final Laith Confirmed Date Final Laith Date Ultra Sound Latest Days Gestation 0 0 Menstrual History Last Menstrual Date Menses Monthly On Bcp Conception Prior Menses Frequency Hcg Plus Date Menarche Onset Age Delivery Information Delivery Date Delivery Type Labor Anesthesia Weeks Gestation Incision Type Labor Labor Length Hrs Delivered By Post Complications Tubal Sterilization Discharge Date Comments 0 Discharge Information Feeding Method Contraceptive Method Maternal HG B and HCT Levels
--- OUTSIDE RECORDS SUMMARY | 2024-03-30 13:06 | XMS_ITS | Encounter Summary ---
Author Organization [facility] Address [address] [place] [address]. [place] [address] [place] [address] Care Team Providers Care Manager Account Management Name Role Phone None, Provider Primary Care Provider Unavaila ble Encounter Details Date Type Department Care Team (Late st Contact Info) Description 12/28/2020 Hospital Follow-up Call [facility] [place], [place] [id number] Raisa Mancia, RN Social History Tobacco Use Types Packs/Day Years Used Date Smoking Tobacco: Never Smokeless Tobacco: Never Alcohol Use Standard Drinks/Week Comments Not Currently 0 (1 standard drink = 0.6 oz pur e alcohol) Humiliation, Afraid, Rape, and Kick questionnair e Answer Date Recorded Within the last year, have y ou been afraid of your partner or ex-partner? No 12/02/2020 Within the last year, have y ou been humiliated or emotionally abused in other ways by your partner or ex-partner? No Within the last year, have y ou been kicked, hit, slapped, or otherwise physically hurt by your partner or ex-partner? No 12/02/2020 Within the last year, have y ou been raped or forced to have any kind of sexual activity by your partner or ex-partner? No 12/02/2020 Depression Answer Date Recor ded Last EPDS Total Score 2 12/11/2020 Last EPDS Self Harm Result Sometimes 12/11 Comments No Sex and Gender Information Value Date Recorded Sex Assigned at Not on file Legal Sex Female 11:28 PM CDT Gender Identity Not on file Sexual Orientation Not on file COVID-19 Exposure Response Date Recorded In the last month, have you been in contact with someone who was confirmed or suspected to have Coronavirus / COVID-19? No / Unsure 12/10/2020 11:19 AM CDT documented as of this encounter Functional Status * RETIRED Are you deaf or do you have serious difficulty hearing Answer Date of Assessment Author Status No 12/10/2020 11:27 AM CDT Acti ve * RETIRED Are you blind or do you have serious difficulty seeing, even when wearing glasses? Answer Date of Assessment Author Status No 12/10/2020 11:27 AM CDT Acti ve * Do you have serious difficulty walking or climbing stairs? Answer Date of Assessment Author Status No 12/10/2020 11:27 AM Mague Avila RN Active * Do you have difficulty dressing or bathing? Answer Date of Assessment Author Status No 12/10/2020 11:27 AM Mague Avila RN Active * Because of a physical, mental, or emotional condition, do you have difficulty doing errands alone such as visiting a doctor's office or shopping? Answer Date of Assessment Author Status No 12/10/2020 11:27 AM Mague Avila RN Active documented as of this encounter Mental Status * Because of a physical, mental, or emotional condition, do you have serious difficulty concentrating, remembering, or making decisions? Answer Entry Date Author Status No 12/10/2020 11:27 AM Mague Avila RN Active documented in this encounter Plan of Treatment Not on file documented as of this encounter Visit Diagnoses Not on filedocumented in this encounter Care Teams Manager Account Management Relationship Specialty Start Date End Date None, Provider, PCP - General 12/09/20 documented as of this encounter
--- OUTSIDE RECORDS SUMMARY | 2024-03-30 13:06 | XMS_ITS | Clinical Summary ---
Author Organization [facility] Address [address] [place] [address] Care Team Providers Care Golf Sales Manager Name Role Phone Lidia Pope MD Unavailable Source Comments [facility],non-owned Affiliates and Associated Physician Practices is amultiple site organization consisting of ambulatory clinics and hospital sitesin [place], [place], [place] and [place]. This disclosure is being madepursuant to the Care Everywhere program and may not contain all information available regarding this patient. Last updated 17.[facility] Allergies Active Allergy Reactions Criticality Noted [...] Comments Blood Pressure 102/52 02/16/2014 11:00 AM BOOK CANVASSER Pulse 95 02/16/2014 11:36 AM BOOK CANVASSER Temperature 36.8 ??C (98.2 ??F) 02/16/2014 11:[address] Respiratory Rate 16 02/16/2014 11:36 AM BOOK CANVASSER Oxygen Saturation 100% 02/16/2014 11:36 AM BOOK CANVASSER Inhaled Oxygen Concentration - - Weight 69.9 kg (154 lb) 02/16/2014 1:32 PM BOOK [facility]VASSER Height 167.6 cm (5' 6 ) 02/16/2014 1:32 PM BOOK CANVASSER Body Mass Index 24.86 02/16/2014 1:32 PM BOOK CANVASSER Plan of Treatment Health Maintenance Due Date Last Done Comments PAP SMEAR 1992 HIV SCREENING 08/16/2007 HEPATITIS C SCREENING 08/11/2010 DTAP/TDAP/TD VACCINES (6 - Td or Tdap) 05/19/2016 05/19/2006, 11/02/1996, 09/15/1994, Additional history exists OB-ONE HOUR GLUCOSE 02/16/2019 OB-TDAP CURRENT 02/23/2019 05/19/2006 OB-RHOGAM INJECTION 03/02/2019 OB-GROUP B STREP SCREEN 04/20/2019 COVID-19 VACCINE (2023- season) 2023 INFLUENZA VACCINE (#1) 2023 DEPRESSION SCREENING 03/07/2024 ZOSTER VACCINE (1 of 2) 2042 Respiratory Syncytial Virus (RSV) Vaccine Pt: or over 60 yrs (1 - 1-dose 75+ series) 08/16/2067 HEPATITIS B VACCINE Completed 07/01/1994, 1992, 1992 HIB VACCINE Completed 07/01/1994, 02/04, 1992 HPV VACCINE Aged Out No longer eligi ble based on patient's age to complete this topic MENINGOCOCCAL (Group B) VACCINE Aged Out No longer eligible based on patient's age to complete this topic MENINGOCOCCAL VACCINE Aged Out No rodney cristian eligible based on patient's age to complete this topic PNEUMOCOCCAL VACCINE Aged Out No long er eligible based on patient's age to complete this topic Care Teams Golf Sales Manager Relationship Specialty Start Date End Date Lidia Pope MD PCP - Pediatrics 03/13/09
--- OUTSIDE RECORDS SUMMARY | 2024-03-30 13:06 | XMS_ITS | Clinical Summary ---
Author Organization [facility] Address [address] [place] [address] Care Team Providers Care Hospital Security Officer Name Role Phone No, Physician Primary Care Provider [phone] Allergies Active Allergy Reactions Criticality Noted Date Comments Buspirone Swelling Medium 12/10/2020 Medications tamsulosin (FLOMAX) 0.4 mg extended release capsuleIndicati ons:Urinary retention Take 1 capsule (0.4 mg total) by mouth nightly 30 capsule 2 08/09/2023 Active phenazopyridine (PYRIDIUM) 100 mg tabletIndicatio ns:Dysuria Take 1 tablet (100 mg total) by mouth 3 (three) times a day as needed for urinary pain 10 tablet 2 08/09/2023 Active Active Problems No known active problems Social History Tobacco Use Types Packs/Day Years Used Date Smoking Tobacco: Every Day Cigarettes 0.5 10.1 Started: 2014 Tobacco Cessation:Ready to Q uit: Not Asked; Counseling Given: Not Answered Personal Safety Answer Date Recorded Getting School Help Needed Not on file 05/21 Comments Unknown Sex and Gender Information Value Date Recorded Sex Assigned at Not on file Legal Sex Female 2:51 PM CDT Gender Identity Not on file Sexual Orientation Not on file Obstetrics History Plan of Treatment Health Maintenance Due Date Last Done Comments Cervical Cancer Screening 1992 Depression Screening 1992 Hepatitis C Screening 1992 Pneumococcal vaccine <65 (1 of 2 - PCV) 1998 Varicella Vaccines (1 of 2 - 13+ 2-dose series) 2005 Regular Well Visit/Exam 18-64 2010 HPV Vaccines (3 - 3-dose series) 03/25/2016 12/30/19 16, 09/23/2015 Influenza Vaccine (#1) 2023 DTaP/Tdap/Td Vaccine (6 - Td or Tdap) 02/17/2024 02/16/2014, 05/19/2006, 07/01/1994, Additional history exists Insurance [facility] Care Teams Hospital Security Officer Relationship Specialty Start Date End Date No, Physician PCP - General 08/05/23
--- OUTSIDE RECORDS SUMMARY | 2024-03-30 13:06 | XMS_ITS | Data Portability ---
Author Organization [facility] [place] Address [address] [place] [address] [address] Assessment No assessment recorded. Plan of Treatment Reminders Order Date Submit Date Provider Last Modified By Organization Details Last Modified Time Details Appointments None recorded. Lab unlisted lab - [facility] swab plus, ELLI 2023 024 [facility] (Lab), [address], [place], [address], 4 16:13:25 unlisted lab - [facility] swab plus, ELLI 2023 024 [facility] (Lab), [address], [place], [address], 4 15:42:27 urinalysis , dipstick 2023 024 [email or web address] [place] [facility] [address], [place], [address], 4 15:05:27 culture, urine 2023 024 [facility] (Lab), [address], [place], [address], 4 07:10:06 urinalysis , dipstick 2023 024 [email or web address] 1 [address], [address], [place], [address], 19:55:35 Referral None recorded. Procedures None recorded. Surgeries None recorded. Imaging None recorded. Medication Orders Diflucan 150 mg tablet 2023 024 [id number], [address], [place], [place], [id number], 12:43:26 Macrobid 100 mg capsule 2023 024 [id number], [address], [place], [place], [id number], 12:43:44 Patient TargetsNo targets recorded. Patient InstructionsNo instructions recorded. Reason for Referral None Reported. Results Created Date Observation Date Name Description Value Unit Range Abnormal Flag Note LastModifiedBy Organization Detail LastModifiedTime 09/20/1909/20/2023 VAGIN ITIS/ VAGIN OSIS, DNA PROBE laura sp. detection, direct probe Positi ve negati ve abnormal Not Available [facility] (Lab) [address] [place], [address], 09/21/2023 11:09:54 09/20/19 24 09/20/2023 VAGIN ITIS/ VAGIN OSIS, DNA PROBE gardnerella vag. detection, direct probe Positi ve negati ve abnormal Not Available [facility] (Lab) [address] [place], [address], 09/21/2023 11:09:54 09/20/19 24 09/20/2023 VAGIN ITIS/ VAGIN OSIS, DNA PROBE trichomonas vag. detection, direct probe Negati ve negati ve Not Available [facility] (Lab) [address] [place], [address], 09/21/2023 11:09:54 10/05/19 24 10/05/2023 VAGIN ITIS/ VAGIN OSIS, DNA PROBE laura sp. detection, direct probe Positi ve negati ve abnormal Not Available [facility] (Lab) [address] [facility], [place], [address], 10/06/2023 10:33:37 10/05/19 24 10/05/2023 VAGIN ITIS/ VAGIN OSIS, DNA PROBE gardnerella vag. detection, direct probe Positi ve negati ve abnormal Not Available [facility] (Lab) [address] [facility], [place], [address], 10/06/2023 10:33:37 10/05/19 24 10/05/2023 VAGIN ITIS/ VAGIN OSIS, DNA PROBE trichomonas vag. detection, direct probe Negati ve negati ve Not Available [facility] (Lab) [address] [facility], [place], [address], 10/06/2023 10:33:37 01/03/20 24 01/03/2024 [facility] SWAB PLUS, ELLI bacterial vaginosis (bv), tma Negati ve negati ve Not Available [facility] (Lab) [address] [place], [address], 01/04/2024 16:13:25 01/03/20 24 01/03/2024 [facility]OM[facility]S [facility] H SWAB PLUS, ELLI laura species, tma Negati ve negati ve Not Available [facility] (Lab) [address] [place], [address], 01/04/2024 16:13:25 01/03/20 24 01/03/2024 [facility]OM[facility] 'S HEALT H SWAB PLUS, ELLI laura glabrata, tma Negati ve negati ve Not Available [facility] (Lab) [address] [place], [address], 01/04/2024 16:13:25 01/03/20 24 01/03/2024 [facility]OM[facility] 'S HEALT H SWAB PLUS, ELLI trichomonas vaginalis, tma Negati ve negati ve Not Available [facility] (Lab) [address] [place], [address], 01/04/2024 16:13:25 01/03/20 24 01/03/2024 [facility] H SWAB PLUS, ELLI chlamydia trachomatis, PCR Negati ve negati ve Not Available [facility] (Lab) [address] [place], [address], 01/04/2024 16:13:25 01/03/20 24 01/03/2024 [facility]S HE[facility] H SWAB PLUS, ELLI neisseria gonorrhoeae, PCR Negati ve negati ve Bacte rial vagin osis detec ts the follo wing bacte girish assoc iated with bacte rial vagin osis (BV): Lacto bacil hugo (L. gasse ri, L. crisp atus and L. jense joanna), Gardn erell a vagin ray, and Atopo bium vagin ae. A singl e quali tativ e resul t is repor rachelle base on instr ument softw are to deter mine BV posit negrito or negat negrito statu s. The [facility] speci es group tests for C. albic ans, C. tropi calis , C. parap donlado is, C. dubli niens is. Testi ng is perfo rmed using the Trans cript ion Media rachelle Ampli ficat ion metho d. Tests for Reva da glabr humaira, Trich omona s vagin ray, Chlam ydia trach omati s, and Neiss eria gonor rhoea e are also inclu ded in this panel . Not Available [facility] (Lab) [address] , [place], [address], 01/04/2024 16:13:25 01/27/20 24 01/27/2024 WOMEN 'S HEALT H SWAB PLUS, ELLI bacterial vaginosis (bv), tma Negati ve negati ve Not Available [facility] (Lab) [address] [place], [address], 01/28/2024 15:42:27 01/27/20 24 01/27/2024 WOMEN 'S HEALT H SWAB PLUS, ELLI laura species, tma Negati ve negati ve Not Available [facility] (Lab) [address] [facility], [place], [address], 01/28/2024 15:42:27 01/27/20 24 01/27/2024 WOMEN 'S HEALT H SWAB PLUS, ELLI laura glabrata, tma Negati ve negati ve Not Available [facility] (Lab) [address] [facility], [place], [address], 01/28/2024 15:42:27 01/27/20 24 01/27/2024 [facility] ELLI trichomonas vaginalis, tma Negati ve negati ve Not Available [facility] (Lab) [address] [facility], [place], [address], 01/28/2024 15:42:27 01/27/20 24 01/27/2024 [facility] ELLI chlamydia trachomatis, PCR Negati ve negati ve Not Available [facility] (Lab) [address] [facility], [place], [address], 01/28/2024 15:42:27 01/27/20 24 01/27/2024 [facility]OMEN 'S HEALT H SWAB PLUS, ELLI neisseria gonorrhoeae, PCR Negati ve negati ve Bacte rial vagin osis detec ts the follo wing bacte girish assoc iated with bacte rial vagin osis (BV): Lacto bacil hugo (L. gasse ri, L. crisp atus and L. jense joanna), Gardn erell a vagin ray, and Atopo bium vagin ae. A singl e quali tativ e resul t is repor rachelle base on instr ument softw are to deter mine BV posit negrito or negat negrito statu s. The [facility] speci es group tests for C. albic ans, C. tropi calis , C. parap donaldo is, C. dubli niens is. Testi ng is perfo rmed using the Trans cript ion Media rachelle Ampli ficat ion metho d. Tests for Reva da glabr humaira, Trich omona s vagin ray, Chlam ycelsoa trach omati s, and Neiss eria giseleor maxime e are also inclu ded in this panel . Not Available [facility] (Lab) [address], [place], [address], 01/28/2024 15:42:27 01/27/20 24 01/27/2024 urina lysis , dipst ick Leukocytes neg Not Available [facility] [address], [place], [address], 01/27/2024 15:04:27 01/27/20 24 01/27/2024 urina lysis , dipst ick Nitrite neg Not Available [place] [address], [place], [address], 01/27/2024 15:04:27 01/27/20 24 01/27/2024 urina lysis , dipst ick Urobilinogen neg Not Available [facility] srikanth [address], [place], [address], 01/27/2024 15:04:27 01/27/20 24 01/27/2024 urina lysis , dipst ick Protein trace Not Available [place] [address], [place], [address], 01/27/2024 15:04:27 01/27/20 24 01/27/2024 urina lysis , dipst ick pH 6 Not Available [place] [address], [place], [address], 01/27/2024 15:04:27 01/27/20 24 01/27/2024 urina lysis , dipst ick Blood + Not Available [place] [address], [place], [address], 01/27/2024 15:04:27 01/27/20 24 01/27/2024 urina lysis , dipst ick Specific [place] 1.010 [facility] Available [facility] [address], [place], [address], 01/27/2024 15:04:27 01/27/20 24 01/27/2024 urina lysis , dipst ick Ketone neg Not Available [place] [address], [place], [address], 01/27/2024 15:04:27 01/27/20 24 01/27/2024 urina lysis , dipst ick Bilirubin NEG [facility] [address], [place], [address], 01/27/2024 15:04:27 01/27/20 24 01/27/2024 urina lysis , dipst ick Glucose neg Not Available [place] [address], [place], [address], 01/27/2024 15:04:27 01/27/20 24 01/27/2024 urina lysis , dipst ick Appearance cloudy Not [facility] [address], [place], [address], 01/27/2024 15:04:27 01/27/20 24 01/27/2024 urina lysis , dipst ick Color yellow Not Available [place] [address], [place], [address], 01/27/2024 15:04:27 02/08/20 24 02/08/2024 CULTU RE: URINE result report SEE RESULT S BELOW Test: Cultu re: Urine Speci men Sourc e: Urine - Clean Catch Speci men Type: Urine Speci men Date: 2023 0937 Resul t Date: 2023 0604 Resul t Statu s: Final resul t Abnor mal: No Resul ting Lab: [facility] [address] [facility] [address] Tel: CULTU RE ----- ----- ----- --- No growt h in 1 day (dete ction level of 10,00 0 colon ies / ml.) Not Available [facility] (Lab) [address] [facility], [place], [address], 02/10/2024 07:10:05 03/02/20 24 03/02/2024 WOMEN 'S HEALT H SWAB PLUS, ELLI bacterial vaginosis (bv), tma Negati ve negati ve Not Available [facility] (Lab) [address] [facility], [place], [address], 03/10/2024 08:13:55 03/02/20 24 03/02/2024 WOMEN 'S HEALT H SWAB PLUS, ELLI laura species, tma Positi ve negati ve abnormal Not Available [facility] (Lab) [address] [facility], [place], [address], 03/10/2024 08:13:55 03/02/20 24 03/02/2024 WOMEN 'S HEALT H SWAB PLUS, ELLI laura glabrata, tma Negati ve negati ve Not Available [facility] (Lab) [address] [place], [address], 03/10/2024 08:13:55 03/02/20 24 03/02/2024 WOMEN 'S HEALT H SWAB PLUS, ELLI trichomonas vaginalis, tma Negati ve negati ve Not Available [facility] (Lab) [address] [place], [address], 03/10/2024 08:13:55 03/02/20 24 03/02/2024 WOMEN 'S HEALT H SWAB PLUS, ELLI chlamydia trachomatis, PCR Negati ve negati ve Not Available [facility] (Lab) [address] [place], [address], 03/10/2024 08:13:55 03/02/20 24 03/02/2024 WOMEN 'S HEALT H SWAB PLUS, ELLI neisseria gonorrhoeae, PCR Negati ve negati ve Bacte rial vagin osis detec ts the follo wing bacte girish assoc iated with bacte rial vagin osis (BV): Lacto bacil hugo (L. gasse ri, L. crisp atus and L. jense joanna), Gardn erell a vagin ary, and Atopo bium vagin ae. A singl e quali tativ e resul t is repor rachelle base on instr ument softw are to deter mine BV posit negrito or negat negrito statu s. The [facility] speci es group tests for C. albic ans, C. tropi calis , C. parap donaldo is, C. dubli niens is. Testi ng is perfo rmed using the Trans cript ion Media rachelle Ampli ficat ion metho d. Tests for Reva da glabr humaira, Trich omona s vagin ray, Chlam ydia trach omati s, and Neiss eria gonor rhoea e are also inclu ded in this panel . Not Available [facility] (Lab) [address] [facility], [place], [address], 03/10/2024 08:13:55 03/02/20 24 03/02/2024 CULTU RE: HSV/ VZV hsv culture/type Commen t Negat negrito No Herpe s simpl ex virus isola rachelle. Not Available [facility] (Lab) [address] [facility], [place], [address], 03/10/2024 08:13:56 03/02/20 24 03/02/2024 CULTU RE: HSV/ VZV viral culture, rapid,varice lla Commen t Negat negrito No Varic lenore zoste r virus detec rachelle by rapid viral cultu re. Not Available [facility] (Lab) [address] [facility], [place], [address], 03/10/2024 08:13:56 Result Notes None recorded. Problems Name Problem SNOMED Code Status Onset Date Resolution Date Notes Provider Name and Address Organization Details Recorded Time Gestatio nal diabetes mellitus 35854919 Completed 201904/02/2021 Gestatio nal diabetes mellitus in pregnanc y, diet controll ed;Recor ded Elsewher e: No Locat ion: Susan hope [facility] S ource: [employer] Business [employer] Sales Executive bouchra: N Practi ce ID: [id number] Zeb lable Time: 01:00:00 PM Carli jimenez, [facility] 2 12:01:23 Acute vaginiti s [id number] Completed 201904/02/2021 Vaginiti s;Record ed Elsewher e: No Locat ion: Soilacatherine herminia [facility] S ource: [employer] Business Development Sales Executive bouchra: N Practi ce ID: [id number] Zeb lable Time: 10:30:00 AM Carli jimenez, [facility] 2 12:01:41 Pregnanc y, childbir th and puerperi um finding Completed 201904/02/2021 Encntr for suprvsn of normal first preg, third trimeste r;Record ed Elsewher e: No Locat ion: Soilacatherine herminia [facility] S ource: [employer] Sales Executive bouchra: N Practi ce ID: [id number] Zeb lable Time: 02:00:00 PM Carli jimenez, [facility] 2 12:01:55 Gestatio n period, 33 weeks [id number] Completed 201904/02/2021 33 weeks gestatio n of pregnanc y;Record ed Elsewher e: No Locat ion: Susan herminia [facility] S ource: [employer] Business Development Sales Executive bouchra: N Practi ce ID: [id number] Zeb lable Time: 01:45:00 PM Carli jimenez, [facility] 2 12:02:13 Gestatio n period, 36 weeks [id number] Completed 201904/02/2021 36 weeks gestatio n of pregnanc y;Record ed Elsewher e: No Locat ion: Susan hpoe [facility] S ource: [employer] Business Development Sales Executive bouchra: N Practi ce ID: [id number] Zeb lable Time: 01:45:00 PM Carli jimenez [facility] 2 12:02:03 Insertio n of intraute rine contrace ptive device Completed 201704/02/2021 Encounte r for insertio n of intraute rine contrace ptive device;R ecorded Elsewher e: No Locat ion: Susan hope [facility] S ource: [employer] Sales Executive bouchra: N Practi ce ID: [id number] Zeb lable Time: 11:30:00 AM Carli jimenez [facility] 2 12:02:06 Gestatio n period, 35 weeks [id number] Completed 201904/02/2021 35 weeks gestatio n of pregnanc y;Record ed Elsewher e: No Locat ion: [facility] S ource: E[employer] Business Development Sales Executive bouchra: N Practi ce ID: [id number] Zeb lable Time: 01:00:00 PM Carli jimenez, [facility] 2 12:02:14 Gestatio n period, 32 weeks [id number] Completed 201904/02/2021 32 weeks gestatio n of pregnanc y;Record ed Elsewher e: No Locat ion: [facility] S ource: [employer] Sales Executive bouchra: N Practi ce ID: [id number] Zeb lable Time: 10:15:00 AM Carli jimenez [facility] 2 12:02:12 Gestatio n period, 34 weeks [id number] Completed 201904/02/2021 34 weeks gestatio n of pregnanc y;Record ed Elsewher e: No Locat ion: [facility] S ource: [employer] Sales Executive bouchra: N Practi ce ID: [id number] Zeb lable Time: 01:00:00 PM Carli jimenez [facility] 2 12:01:27 Surveill ance of contrace ption Completed 201704/02/2021 Encounte r for surveill ance of contrace ptives, unspecif ied;Larry rded Elsewher e: No [facility]: EHR Business Development Sales Executive bouchra: N Sawyerti ce ID: [id number] Zeb lable Time: 11:00:00 AM Carli jimenez, [facility] [address] 12:02:[address] Concept Completed 201904/02/2021 Matern care for abnlt fetl hrt rate or rhym, 3rd tri, unsp;Rec orded Elsewher e: No Locat ion: [facility] S ource: [employer] Business Development Sales Executive bouchra: N Sawyerti ce ID: [id number] Zeb lable Time: 01:45:00 PM Carli jimenez, [facility] 2 12:01:33 Gestatio n period, 31 weeks [id number] Completed 201904/02/2021 31 weeks gestatio n of pregnanc y;Record ed Elsewher e: No Locat ion: [facility] S ource: [employer] Business Development Sales Executive bouchra: N Sawyerti ce ID: 0001 Zeb lable Time: 11:00:00 AM Carli jimenez, [facility] 2 12:02:05 Pregnanc y, childbir th and puerperi um finding Completed 201904/02/2021 Encounte r for supervis ion of normal 1st pregnanc y;Record ed Elsewher e: No Locat ion: [facility] S ource: [employer] Business Development Sales Executive bouchra: N Sawyerti ce ID: 0001 Zeb lable Time: 10:15:00 AM Carli jimenez, [facility] 2 12:01:54 Gestatio n period, 23 weeks [id number] Completed 201804/02/2021 23 weeks gestatio n of pregnanc y;Record ed Elsewher e: No Locat ion: [facility] S ource: [employer] Business [employer] Sales Executive bouchra: N Sawyerti ce ID: 0001 Zeb lable Time: 01:30:00 PM Carli jimenez [facility] 2 12:02:15 Finding of desire for urinatio n [id number] Completed 201804/02/2021 Urgency of urinatio n;Record ed Elsewher e: No Locat ion: [facility] S ource: [employer] Sales Executive bouchra: N Sawyerti ce ID: 0001 Zeb lable Time: 02:15:00 PM Carli jimenez [facility] 2 12:01:46 Gestatio nal diabetes mellitus in [facility] [id number] Completed 201904/02/2021 Gestatio nal diabetes mellitus in [facility], diet controll ed;Recor ded Elsewher e: No Locat ion: [facility] S ource: [employer] Business Development Sales Executive bouchra: N Sawyerti ce ID: 0001 Zeb lable Time: 03:45:00 PM Carli jimenez [facility] 2 12:01:21 Infectio n screenin g Completed 201804/02/2021 Encounte r for screenin g for oth infec/pa rastc diseases ;Recorde d Elsewher e: No Locat ion: [facility] S ource: [employer] Business Development Sales Executive bouchra: N Sawyerti ce ID: 0001 Zeb lable Time: 02:15:00 PM Carli jimenez [facility] [address] 12:01:[address] Concept Completed 201704/02/2021 Encntr for general adult medical exam w/o abnormal findings ;Recorde d Elsewher e: No Locat ion: [facility] S ource: [employer] Business Development Sales Executive bouchra: N Sawyerti ce ID: [id number] Zeb lable Time: 11:00:00 AM Carli jimenez [facility] 2 12:01:49 Antenata l screenin g for malforma tion Completed 201804/02/2021 Encounte r for antenata l screenin g for malforma tions;Re corded Elsewher e: No Locat ion: Susan hope [facility] S ource: EHR Business Development Sales Executive bouchra: N Alma ce ID: 0001 Zeb lable Time: 09:30:00 AM Carli jimenez [facility] 2 12:02:08 Pregnanc y detectio n examinat ion Completed 201804/02/2021 Encounte r for pregnanc y test, result positive ;Recorde d Elsewher e: No Locat ion: [facility] herminia [facility] S ource: EHR Business Development Sales Executive bouchra: Leander Marquez ce ID: 0001 Zeb lable Time: 08:45:00 AM Calri Rice [facility] 2 12:02:[address] Concept Completed 201804/02/2021 Maternal care for oth abnormal ity and damage, unsp;Rec orded Elsewher e: No Locat ion: Susan hope [facility] S ource: [employer] Business Development Sales Executive bouchra: N Alma ce ID: 0001 Zeb lable Time: 01:30:00 PM Carli jimenez [facility] 2 12:01:32 Syphilis test finding [id number] Completed 201804/02/2021 Encntr screen for infectio ns w sexl mode of transmis s;Record ed Elsewher e: No Locat ion: Susan hope [facility] S ource: [employer] Business Development Sales Executive bouchra: N Sawyerti ce ID: 0001 Zeb lable Time: 02:15:00 PM Carli jimenez [facility] 2 12:02:00 Rubella screenin g status [id number] Completed 201804/02/2021 Encounte r for antenata l screenin g, unspecif ied;Larry rded Elsewher e: No [facility] Business Development Sales Executive bouchra: N Sawyerti ce ID: [id number] Zeb lable Time: 09:45:00 AM Carli jimenez [facility] 2 12:01:[address] Concept Completed 201704/02/2021 Nexplano n;Record ed Elsewher e: No Locat ion: [facility] S ource: [employer] Business [employer] Sales Executive bouchra: N Sawyerti ce ID: [id number] Zeb lable Time: 12:40:44 PM Carli jimenez [facility] 2 12:01:52 Finding of urine substanc e level Completed 201804/02/2021 Proteinu girish, unspecif ied;Larry rded Elsewher e: No Locat ion: [facility] S ource: [employer] Business [employer] Sales Executive bouchra: N Alma ce ID: 0001 Zeb lable Time: 09:45:00 AM Carli jimenez [facility] 2 12:01:45 Lochia finding Completed 201904/02/2021 Encounte r for routine postpart um follow-u p;Record ed Elsewher e: No Locat ion: [facility] S ource: E[employer] Business Development Sales Executive bouchra: N Sawyerti ce ID: 0001 Zeb lable Time: 09:45:00 AM Carli jimenez [facility] 2 12:01:57 Placenta previa [id number] Completed 201804/02/2021 Placenta previa specifie d as w/o hemor, second trimeste r;Record ed Elsewher e: No Locat ion: [facility] S ource: E[employer] Business Development Sales Executive bouchra: N Sawyerti ce ID: 0001 Zeb lable Time: 01:30:00 PM Carli jimenez [facility] 2 12:01:59 Antenata l screenin g Completed 201804/02/2021 Encounte r for antenata l screenin g for nuchal transluc ency;Rec orded Elsewher e: No [facility]: EHR Business Development Sales Executive bouchra: N Alma ce ID: 0001 Zeb lable Time: 09:15:00 AM Carli jimenez [facility] 2 12:01:36 Normal pregnanc y in multigra jhonny [id number] Completed 201804/02/2021 Encounte r for suprvsn of normal pregnanc y, third trimeste r;Record ed Elsewher e: No Locat ion: [facility] S ource: E[employer] Business Development Sales Executive bouchra: N Alma ce ID: 0001 Zeb lable Time: 08:30:00 AM Carli Rice [facility] 2 12:02:02 Gestatio n period, 24 weeks [id number] Completed 201804/02/2021 24 weeks gestatio n of pregnanc y;Record ed Elsewher e: No Locat ion: [facility] herminia [facility] S ource: EHR Business Development Sales Executive bouchra: N Alma ce ID: 0001 Zeb lable Time: 01:30:00 PM Carli jimenez [facility] 2 12:01:48 Procedur e on genitour inary system Completed 201904/02/2021 Encounte r for surgical aftercar e followin g surgery on the genitour inary system;R ecorded Elsewher e: No Locat ion: [facility] S ource: EHR Business Development Sales Executive bouchra: N Sawyerti ce ID: 0001 Zeb lable Time: 02:15:00 PM Carli jimenez [facility] 2 12:01:24 Postoper ative care Completed 201904/02/2021 Encounte r for surgical aftercar e followin g surgery on the genitour inary system;R ecorded Elsewher e: No [facility] Business Development Sales Executive bouchra: N Practi ce ID: 0001 Zeb lable Time: 02:15:00 PM Carli jimenez [facility] [address] 12:01:[address] Concept Completed 201704/02/2021 Encntr for supervisor plate forming exam (general ) (routine ) w/o abn findings ;Recorde d Elsewher e: No Locat ion: [facility] S ource: EHR Business Development Sales Executive bouchra: N Practi ce ID: 0001 Zeb lable Time: 11:00:00 AM [facility] 12:01:51 Vaginola bial hernia Completed 201804/02/2021 Other specifie d noninfla mmatory disorder s of vagina;R ecorded Elsewher e: No Locat ion: [facility] S ource: EHR Business Development Sales Executive bouchra: N Practi ce ID: 0001 Zeb lable Time: 02:15:00 PM Carli jimenez, [facility] 2 12:01:43 Hemorrha gic complica tion of pregnanc y [id number] Completed 201904/02/2021 Antepart um hemorrha ge, unspecif ied, third trimeste r;Practi ce ID: [id number] Carli jimenez, [facility] 2 12:01:20 False labor [id number] Completed 201904/02/2021 False labor, unspecif ied;Prac nori ID: 0001 Carli Rice [facility], [facility] 2 12:01:[address] Concept Completed 201904/02/2021 Matern care for abnlt fetl hrt rate or rhym, unsp tri, unsp;Pra ctice ID: 0001 Carli jimenez, [facility] 2 12:01:35 Single live [id number] Completed 201904/02/2021 Single live ;Pr actice ID: [address] [facility] 2 12:01:29 Problem Notes None recorded. Procedures Surgical History Date Name Laterality Status Provider Name and Address Organization Details Recorded Time 3 Date of Last Pap Smear completed Nya Murphy [facility] 01/18/2023 15:27:41 1 section completed Carlijeovany Rice [facility] 04/02/2021 12:11:07 0 section completed Carli [facility] 04/02/2021 12:11:29 Imaging Results None recorded. Procedure Notes None recorded. Medical Equipment None Reported. Allergies No known drug allergies Medications Name Sig Start Date Stop Date Status Note LastModified by Organization Details LastModified Time amoxicill in 500 mg capsule TAKE 1 CAPSULE BY MOUTH THREE TIMES DAILY 03/02 completed Not Available Not Available Not Available dicloxaci llin 500 mg capsule TAKE 1 CAPSULE BY MOUTH EVERY 12 HOURS FOR 10 DAYS 01/06 completed Not Available Not Available Not Available fluconazo le 100 mg tablet Take 1 tablet every day by oral route. 12/10 completed Not Available Not Available Not Available terconazo le 0.4 % vaginal cream INSERT 1 APPLICAT ORFUL VAGINALL Y EVERY DAY AT BEDTIME FOR 7 DAYS 12/07 completed Not Available Not Available Not Available triazolam 0.25 mg tablet TAKE 1 TABLET BY MOUTH IN TH EVENING BEFORE BEDTIME. 2 TABLETS 1 HOUR PRIOR TO APPOINTM ENT. BRING 1 TABLET TO APPT. 03/02 completed Not Available Not Available Not Available nystatin 100,000 unit/gram topical ointment APPLY TO THE AFFECTED AREA BY TOPICAL ROUTE TWICE DAILY 03/02 completed Not Available Not Available Not Available fluconazo le 150 mg tablet take 1 tablet by oral route once. If still having symptoms after 72 hours take second dose active Not Available Not Available No t Available Lotrisone 1 %-0.05 % topical cream apply by topical route 2 times every day for 2 weeks to the affected and surround ing areas of skin in the morning and evening 06/24 completed Prescrib ed Elsewher e: No Locat ion: Susan [facility] odify By: bchadi mayer DateTime : 06/12/19 03:29:12 PM Not Available Not Available Not Available hydrocodo ne 5 mg-acetam inophen 325 mg tablet TAKE 1 TABLET BY MOUTH EVERY 4 TO 6 HOURS NEEDED FOR 4 DAYS 03/02 completed Not Available Not Available Not Available phenazopy ridine 200 mg tablet 12/16 completed Not Available Not Available Not Available metronida zole 0.75 % (37.5 mg/5 gram) vaginal gel INSERT 1 APPLICAT ORFUL VAGINALL Y EVERY DAY AT BEDTIME FOR 5 DAYS 03/02 completed Not Available Not Available Not Available terconazo le 0.8 % vaginal cream insert 1 applicat orful by vaginal route every day at bedtime 09/27 completed Prescrib ed Elsewher e: No Locat ion: [facility] odify By: bnestephanie mayer DateTime : 09/22/19 03:42:12 PM Not Available Not Available Not Available metronida zole 500 mg tablet TAKE 1 TABLET BY MOUTH TWICE DAILY FOR 7 DAYS 03/02 completed Not Available Not Available Not Available sulfameth oxazole 800 mg-trimet hoprim 160 mg tablet TAKE 1 TABLET BY MOUTH EVERY 12 HOURS FOR 10 DAYS 01/06 completed Not Available Not Available Not Available triamcino lone acetonide 0.1 % topical cream 09/19 completed Not Available Not Available Not Available Procardia 10 mg capsule take 1 capsule by oral route every 4 hours 05/08 completed Prescrib ed Elsewher e: No Locat ion: [facility] odify By: smcailyny Justice shaw DateTime : 04/20/19 10:15:00 AM Not Available Not Available Not Available Miconazol e-7 2 % vaginal cream insert 1 applicat orful by vaginal route at bedtime for 7 nights 05/08 completed Prescrib ed Elsewher e: No Locat ion: Susan [facility] odify By: [email or web address] Encounte r DateTime : 04/04/19 10:08:18 AM Not Available Not Available Not Available famotidin e 20 mg tablet 12/07 completed Not Available Not Available Not Available hydrocort isone 2.5 % lotion APPLY THIN LAYER TOPICALL Y TO THE AFFECTED AREA TWICE DAILY 12/07 completed Not Available Not Available Not Available tamsulosi n 0.4 mg capsule 09/19 completed Not Available Not Available Not Available NYX Interactive Ultra Test strips CHECK FOUR TIMES DAILY DIRECTED 12/07 completed Not Available Not Available Not Available phenazopy ridine 100 mg tablet TAKE 1 TABLET BY MOUTH THREE TIMES DAILY FOR 2 DAYS 08/09 completed Not Available Not Available Not Available cephalexi n 500 mg capsule 12/07 completed Not Available Not Available Not Available triamcino lone acetonide 0.1 % topical ointment APPLY THIN LAYER TOPICALL Y TO THE AFFECTED AREA TWICE DAILY 03/02 completed Not Available Not Available Not Available nystatin 100,000 unit/gram topical cream APPLY TOPICALL Y TO THE AFFECTED AREA TWICE DAILY 09/19 completed Not Available Not Available Not Available nystatin- triamcino lone 100,000 unit/g-0. 1 % topical cream 09/19 completed Not Available Not Available Not Available ibuprofen 600 mg tablet TAKE 1 TABLET BY MOUTH EVERY 6 HOURS NEEDED 12/07 completed Not Available Not Available Not Available methylpre dnisolone 4 mg tablets in a dose pack TAKE DIRECTED 03/02 completed Not Available Not Available Not Available Lana 0.35 mg tablet take 1 tablet by oral route every day 04/02 completed Prescrib ed Elsewher e: No [facility]ify By: davion mayer DateTime : 06/12/19 03:29:12 PM Not Available Not Available Not Available Ortho-Cyc magalys (28) 0.25 mg-35 mcg tablet take 1 tablet by oral route every day 10/12 completed Prescrib ed Elsewher e: No Locat ion: Susan hope [facility] odify By: black mayer DateTime : 02/22/20 18 11:00:00 AM Not Available Not Available Not Available nitrofura ntoin monohydra te/macroc rystals 100 mg capsule Take 1 capsule twice a day by oral route for 7 days. 03/02 completed Not Available Not Available Not Available Vitamin D3 active Not Available Not Available Not Available Fora N09-S45-T 10-D20 strips-la ncets 30 gauge combo pack Checking BS QID fasting and 1hr pp 05/08 completed Prescrib ed Elsewher e: No Locat ion: Kiki herminia [facility] odify By: joshua Rendon r DateTime : 03/08/19 08:54:45 AM Not Available Not Available Not Available 28 mg-800 mcg tablet 05/08 completed Prescrib ed Elsewher e: Yes Loca tion: Susan hope [facility] odify By: joshua Rendon r DateTime : 11/15/19 09:45:00 AM Not Available Not Available Not Available Anusol-HC 2.5 % topical cream with perineal applicato r APPLY A THIN LAYER TO THE AFFECTED AREA(S) BY TOPICAL ROUTE 2-4 TIMESDAI LY FOR 5 DAYS 12/16 completed Not Available Not Available Not Available OneTouch Ultra2 Meter USE DIRECTED FOUR TIMES DAILY 12/07 completed Not Available Not Available Not Available OneTouch Delica Plus Lancet 33 gauge CHECK FOUR TIMES DAILY DIRECTED 12/07 completed Not Available Not Available Not Available Vitals Date Recorded Body height Body mass index (BMI) Body weight Systolic blood pressure Diastolic blood pressure Provider Name and Address Organization Details Last Updated DateTime 01/03/2024 167.64 cm 26.6 kg/m2 77571.74 g 114 mm[Hg] 74 mm[Hg] Liza Monsalve [facility] 14:26:08 Date Recorded Body height Body mass index (BMI) Body weight Systolic blood pressure Diastolic blood pressure Provider Name and Address Organization Details Last Updated DateTime 02/07/2024 167.64 cm 27.9 kg/m2 76941.48 g 127 mm[Hg] 85 mm[Hg] Sybil Tinajero [facility] 4 19:52:57 Date Recorded Body height Body mass index (BMI) Body weight Systolic blood pressure Diastolic blood pressure Provider Name and Address Organization Details Last Updated DateTime 03/02/2024 167.64 cm 28.1 kg/m2 80572.51 g 125 mm[Hg] 77 mm[Hg] Kylee Rajput [facility] 4 12:43:03 Social History Question Answer Notes LastModified by Organizat ion Details LastModified Time Tobacco Smoking Status Former Smoker Carli Rice barbara, [facility] 04/02/2021 12:10:56 What Is Your Level Of Alcohol Consumption? Occasional [email or web address] Information not available 12/07/2021 Are You Blind Or Do You Have Difficulty Seeing? No [email or web address] Information not available 12/07/2021 What Is Your Level Of Caffeine Consumption? Occasional [email or web address] Information not available 12/07/2021 In The 14 Days Before Symptom Onset, Have You Had Close Contact With A Laboratory-confir med COVID-19 While That Case Was Ill? No Information not available 12/07/2021 In The 14 Days Before Symptom Onset, Have You Had Close Contact With A Person Who Is Under Investigation For COVID-19 While That Person Was Ill? No [email or web address] Information not available 12/07/2021 Have You Been To An Area Known To Be High Risk For COVID-19? No [email or web address] Information not available 12/07/2021 Are You Deaf Or Do You Have Serious Difficulty Hearing? No [email or web address] Information not available 12/07/2021 What Type Of Diet Are You Following? REGULAR [email or web address] Information not available 12/07/2021 Have You Ever Been Counseled For Unhealthy Alcohol Use? No [email or web address] Information not available 12/07/2021 Do You Use Your Seat Belt Or Car Seat Routinely? Yes [email or web address] Information not available 12/07/2021 Do You Have Smoke And Carbon Monoxide Detectors In Your Home? Yes [email or web address] Information not available 12/07/2021 Do You Feel Stressed (tense, Restless, Nervous, Or Anxious, Or Unable To Sleep At Night)? [id number] [email or web address] Information not available 12/07/2021 Do You Use Any Illicit Or Recreational Drugs? No [email or web address] Information not available 12/07/2021 Do You Use Sunscreen Routinely? Yes [email or web address] Information not available 12/07/2021 Has Tobacco Cessation Counseling Been Provided? No [email or web address] Information not available 12/07/2021 Do You Or Have You Ever Used Any Other Forms Of Tobacco Or Nicotine? No [email or web address] Information not available 12/07/2021 Sex: Unknown Functional Status Question Answer Note LastModified by Organizat ion Details LastModified Time Do you have difficulty walking or climbing stairs? No [email or web address] Information not available 12/07/2021 Are you able to walk? YESWOREST [email or web address] Information not available 12/07/2021 Are you able to care for yourself? Yes [email or web address] Information not available 12/07/2021 Do you have difficulty dressing or bathing? No Information not available 12/07/2021 What is your exercise level? Occasional [email or web address] Information not available 12/07/2021 Mental Status None recorded. Family History Relationship Description Onset Age of this Age Resolved Age Notes LastModified by Organization Details LastModified Time Father No current problems or disability [email or web address] Not available 04/02 12:10:47 Mother No current problems or disability [email or web address] Not available 04/02 12:10:47 Medical History Condition Response Allergies (Food, seasonal, environmental ) N Other Y Breast Cancer N Drug/Latex Allergies/Reactions N Blood Transfusion N Dermatologic Disorders N Lung Disease N Defects or Inherited Disease N Breast Problem N Gestational Diabetes Y Hematologic disorders N Anesthesia Complications N History of STI N Deep Vein Thrombosis N Polycystic ovary syndrome N Anxiety Disorder N Autoimmune disease N Arthritis N Infertility N Polyps N Acid Reflux (GERD) N History of abnormal pap N Cancer N Stroke N Varicosities N Neurologic/Epilepsy N Endometriosis N High Cholesterol N Headaches N Fibromyalgia N Kidney Disease N Heart Problems N Kidney or Bladder Problems N Thyroid Problems N GI Problems N Eating Disorder N Anemia N Art (IVF or FET) N Psychiatric Illness N Ovarian Cancer N Diabetes Y Pulmonary (TB, Asthma) N Hepatitis/Liver Disease N No Past Medical History N Eczema N Urinary Tract Infection N Abuse/Domestic Violence N Asthma N Trauma/Violence N Depression/ depression N Heart Disease N Pre-Eclampsia N Hypertension N Osteoporosis N Thrombophilias N Gynecological History Statement/Question Response Date of Last Mammogram Flow Moderate Date of LMP 02/15/2024 Was last menstrual period normal Y STIs/STDs N Date of Last Colonoscopy Desired Control Method Condoms Abnormal Pap N On BCP's at Conception? N HPV Vaccine N Colposcopy Duration of Flow (days) 4 Current Control Method Condoms Age at First Child 28 Are cycles usually normal Y Frequency of Cycle (Q days) 30 Sexually Active? Y Menses Monthly Y Date of DEXA bone scan Age of first menstrual cycle 13 Date of Last Pap Smear 09/14/2022 Sexual Problems? N LMP Definite Obstetrics History GPAL:G 2 P 1 1 0 2 Type Value Full Term 1 Premature 1 Living 2 Total 2 Past Encounters Encounter ID Performer Location Encounter Start Date Encounter Closed Date Diagnosis/Indication Diagnosis SNOMED-CT Code Diagnosis ICD10 Code [id number] [address] [address] 04/02/2021 11:57:53 04/03/2021 09:48:09 Urinary symptoms 576992288 R39.9 Increase water and decrease caffeine. Call if any new or worsening symptoms. Missed period 33628290 N 92.5 Vaginitis 66464239 N76.0 Discussed use of mild soap like dove or ivory, cotton underwear w/out dye, hypoallerg enic detergent, wipe from front to back, avoid tub baths, keep perineum clean and dry, d/c use of baby wipes. Encouraged daily intake of yogurt or womens health probiotic. Internal and external affirm collected. Declined std screen. [id number] [facility] [address] [address] 12/07/2021 15:34:53 12/07/2021 16:25:59 Skin disorder of breast 913973059 N64.89 Yeast of the nipple. Instructed to keep clean and dry. Wash bra's in warm soapy water. Ensure nipple is dry after feeding. Will send out diflucan. Encouraged to have child evaluated for thrush. If no improvemen t in the next few days she will call us. [id number] ABBY Cherry [place] [address] [address] 12/10/2021 13:43:09 12/10/2021 14:56:47 Acute mastitis 39417212 N61.0 Suspect mastitisWe agreed to antibiotic course - dicloxacil remi BID for 10 daysContin ue breastfeed ing, may pump after feedings if neededR/B of medication discussed and accepted by patientTo monitor for any signs of fevers, flu-like symptoms, or worsening breast pain. RTC or ED if needed Time spent in visit is a total of30 mins with at least 50% of visit consisting of counseling and review of plan of care. Vaginitis 43878879 N76.0 Vaginitis panel sentRx for metronidaz ole vaginal gel, she will start it after this periodR/B of this medication discussed and accepted by patient [id number] ABBY Cherry [place] [address] [address] 12/23/2021 10:33:20 12/23/2021 10:59:27 Abscess of skin of breast [id number] 9275549 N61.1 Suspect possible staph infection of open area near left nipple. Swab of the area obtained and sent for culture.Rx sent for bactrim, twice a day for 10 days.She will call pediatrici an and clear taking the bactrim while breastfeed ing before starting. Encouraged her to also have seen by pediatrici an.Encoura ged pumping / nipple shield to avoid re-injury of the open areaED precaution s discussed - fever/chil ls/n/v/fat igue/worse ila symptomsRT C in 10 days for re-assessm ent, will have her obtain breast u/s after completing the antibiotic s Time spent in visit is a total of 20 mins with at least 50% of visit consisting of counseling and review of plan of care. [id number] [place] [address] [address] 01/06/2022 12:43:32 01/06/2022 14:08:50 Abscess of skin of breast [id number] 1313835 N61.1 Healing well, scabbed overNo discharge or signs of infection present todayWe agreed to update a left breast u/s - order given to patientShe will continue to feed baby in a way that prevents re-opening of the wound. Continue to monitor for signs of infection. ED precaution s discussed. RTC in 3 weeks for f/uMay need general surgeon consult pending u/s or if healing does not continue Time spent in visit is a total of 15 mins with at least 50% of visit consisting of counseling and review of plan of care. [id number] Enriqueta Schumacher CRYSTAL [place] [address],[facility] [place] [address] 03/23/2022 11:54:09 03/23/2022 12:44:33 Urinary symptoms 204497279 R39.9 Vaginitis 04293662 N76.0 Suspect yeastVagin itis panel sentSTI testing declinedUr ine cx sentVulvar care guidelines discussedR x sentR/B of medication discussedR TC if symptoms persist past treatment Time spent in visit is a total of 25 mins with at least 50% of visit consisting of counseling and review of plan of care. [id number] Enriqueta Schumacher [facility] [place] [address],[place] [address] 09/14/2022 11:07:06 09/14/2022 12:12:05 Venereal disease screening 486853217 Z11.3 Sexually t ransmitted infectious disease 5153073 A64 Gynecologi c examination 80186820 Z01.419 Z11.51 Take Calcium with Vitamin D daily if not receiving in daily diet. It is strongly advised to have an annual flu shot and up can obtain at most pharmacies . If you have not had a TDap shot in the last 10 years you should obtain one as well. Discussed with patient & provided with informatio n regarding Gardisil vaccine to prevent the 4 strains for HPV that cause cervical cancer if under age 26. Encourage safe sexual practices, to use condoms and limit partners if not already in a monogamous relationsh ip. Do monthly self breast exams. Have mammogram yearly or every other year depending on family history. BRCA testing is now available for patients with strong genetic history of female cancer. If interested contact the office. Engage in daily exercise of low impact aerobic exercise 45-60 minutes 4-5 times weekly. Avoid tobacco and illicit drugs as well as using moderation with alcohol intake less than 1-2 8 oz beverages daily. This lifestyle behavior pattern will lead to less health conditions and longer life span. If BMI greater than 25 weight watchers or dietary consult advised. Patient received above instructio ns, and questions have been answered. If you have any questions please call or respond to this email. Patient was made aware of the patient portal and may obtain a paper copy of today's plan if desired. WWEBF, weaningBC - condoms, happy with this methodpap updatedSTI testing added to papblood STI testing orderedenc ouraged annual exam with PCPRTC in 1 year or sooner if needed Hemorrhoids 95746513 K64 .9 increase water intake, increase fiberup to date hemorrhoid education sheet given to patientrx sentoffere d surgeon referral, declined [id number] ABBY Cherry [place] [address],[place] [address] 11/12/2022 10:50:21 11/12/2022 12:09:27 Venereal disease screening 880441047 Z11.3 UA normalgc/c t/trich testing sentvulvar care guidelines discussedr x for fluconazol e, r/b/a reviewedco ndom use encouraged RTC for WWE or sooner if needed Vaginitis 58509965 N76.0 [id number] MONIQUE COMER MD [place] [address],[place] [address] 12/13/2022 11:41:08 12/16/2022 09:39:07 [id number] ABBY Cherry [place] [address],[place] [address] 12/16/2022 12:14:08 12/16/2022 15:41:26 Vaginitis 65002597 N76.0 suspect BV/yeast and UTIvaginit is/STI panel senturine cx sentrx sent, r/b/a reviewedwi ll update patient with results when availables afe sexual practices discussed and encouraged Time spent in visit is a total of 35 mins with at least 50% of visit consisting of counseling and review of plan of care. Urinary symptoms 4911882 08 R39.9 Venereal d isease screening 510872338 Z11.3 Amenorrhea 34303529 N91. 2 [id number] ABBY Cherry [place] [address],[place] [address] 01/18/2023 15:18:05 01/19/2023 09:27:12 Vaginitis 99942865 N76.0 suspect yeastvagin itis panel sentSTI panel declinedrx sent, r/b/a reviewedvu lvar care guidelines discussedd iscussed boric acid capsulesRT C if symptoms persist past treatment Time spent in visit is a total of 20 mins with at least 50% of visit consisting of counseling and review of plan of care. [id number] ABBY Cherry [place] [address],[place] [address] 03/29/2023 12:37:02 03/29/2023 14:07:09 Vaginitis 44000753 N76.0 suspect yeastvagin itis/STI panel sentUA normalrx sent, r/b/a reviewedBC options discussed - declined Time spent in visit is a total of 25 mins with at least 50% of visit consisting of counseling and review of plan of care. Urinary symptoms 5650546 08 R39.9 Venereal d isease screening 065075589 Z11.3 Contracept ion care management 259160771 Z30.9 [id number] ABBY Cherry [place] [address],[place] [address] 07/26/2023 11:30:36 07/26/2023 12:03:19 Urinary symptoms 220188352 R39.9 UA/cx sentrx sent for macrobid - r/b/a reviewedva ginitis panel sentdeclin ed STI screenrx sent for yeast - r/b/a reviewedvu lvar care guidelines discussedp recautions reviewedWW E due 09/2023 Time spent in visit is a total of 25 mins with at least 50% of visit consisting of counseling and review of plan of care. Pain in pelvis 54998356 R10.2 Vulval irritation 180239 003 N90.89 [id number] ABBY Cherry [place] [address],[place] [address] 08/03/2023 09:59:56 08/03/2023 11:07:50 Urinary symptoms 455745616 R39.9 repeat urine culture sentrx for pyridium, r/b/a revieweden couraged increase water intake, decrease intake of bladder irritants (caffeine, citrus, spicy foods, carbonatio n, etc)gc/ct/ trich testing sentif symptoms continue recommend urology consult/ev aluation for possible IC given frequent urinary symptomspr ecautions reviewed Time spent in visit is a total of 25 mins with at least 50% of visit consisting of counseling and review of plan of care. Venereal d isease screening 980640558 Z11.3 [id number] Enriqueta Schumacher [place] [address] [address] 08/16/2023 12:14:08 08/16/2023 13:24:35 Vulval irritation 009371243 N90.89 extended vaginitis panel sentgc/ct/ trich testing sentvulvar care guidelines discussedr x sent for fluconazol e, r/b/a reviewedny statin/tri amcinolone ointment BID x 5 daysconsid er referral to vulvar menagerie caretaker if symptoms continue - discussed with pt Time spent in visit is a total of 25 mins with at least 50% of visit consisting of counseling and review of plan of care. Venereal d isease screening 780955094 Z11.3 [id number] Enriqueta Schumacher [facility] [address],[place] [address] 09/20/2023 14:45:50 09/20/2023 15:50:09 Vaginitis 94757590 N76.0 vaginitis panel sentdeclin ed STI screenrx sent for BV/yeast - r/b/a reviewedvu lvar care guidelines discussedc onsider referral to vulvar menagerie caretaker if symptoms continue, discussed with pt Time spent in visit is a total of 20 mins with at least 50% of visit consisting of counseling and review of plan of care. [id number] Enriqueta Schumacher [facility] [place] [address],[place] [address] 10/05/2023 12:16:13 10/06/2023 10:33:51 [id number] Liza Monsalve [place] [address],[place] [address] 01/03/2024 14:13:50 01/03/2024 14:27:00 Vaginal discharge 577704569 N89.8 [id number] Maritza Nava [place] [address],[place] [address] 01/27/2024 14:47:43 01/27/2024 15:55:06 Urinary symptoms 934305604 R39.9 Vaginal discharge 962152 006 N89.8 Urinary tr act infectious disease 36846598 N39.0 [id number] Sybil Wellstz [place] [address],[place] [address] 02/07/2024 13:50:28 02/08/2024 09:29:23 Urinary symptoms 117846901 R39.9 [id number] ABBY Cherry [place] [address],[place] [address] 03/02/2024 12:33:06 03/05/2024 11:22:23 Vulval irritation 042049774 N90.89 vaginitis panel sentHSV PCR sentdeclin ed gc/ct/tric h testing - recently had neg testingvul criss care guidelines discussedw ill await testing and treat as indicated. Avoid shaving/wa gillian until symptoms resolve, follow vulvar care guidelines Time spent in visit is a total of 25 mins with at least 50% of visit consisting of counseling and review of plan of care. Health Concerns Section Related Observation LastModified by Organization Detai ls LastModified Time None Recorded Concern Status LastModified by Organization Details LastModified Time None Recorded Advance Directives Directive None Recorded Payers Encounter Date Sequence Insurance Name Policy Number Policy Hilton Covered Member ID Hilton Member ID Guarantor Name 10/05/2023 1 [facility] ON OR AFTER 09/04/20 (MEDICAID REPLACEMENT - HMO) Alphonse Herron [id number] Alphonse Herron 01/03/2024 1 [facility] ON OR AFTER 09/04/20 (MEDICAID REPLACEMENT - HMO) Alphonse Lemusight [id number] Alphonse Germaine 01/27/2024 1 [facility] ON OR AFTER 09/04/20 (MEDICAID REPLACEMENT - HMO) Alphonse Lemusight [id number] Alphonse Germaine 02/07/2024 1 [facility] ON OR AFTER 09/04/20 (MEDICAID REPLACEMENT - HMO) Alphonsefunmi Herron [id number] Alphonseleandro Herron 03/02/2024 1 [facility] ON OR AFTER 09/04/20 (MEDICAID REPLACEMENT - HMO) Alphonsefunmi Herron [id number] Alphonsefunmi Herron Notes Date Note Type Note Provider Name and Address Organization Details Recorded Time 4 text/html 31yopresents for vulvar irritationnoticed symptoms a few days ago after shavingirritation, thomson when wiping/urinatingno new partnersneg urinary symptomsneg n/v/fneg d/c, odors, itchingneg flu-like symptoms ABBY Cherry [address], [place], [address], [facility] 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 Driver Status 04/02/19 22 1 CLOSED Fetus Data First Name Last Name Admitted to NICU Weight (g) Sex Living Outcome Pediatric Complications Fetus ID Race Codes Race Delivery Type 4082.32 8 M Full Term [id number] Repeat Laith Calculation Initial Laith Date Initial [...] Complications Tubal Sterilization Discharge Date Comments 1 40 Discharge Information Feeding Method Contraceptive Method Maternal HG B and HCT Levels Ob Episode Information Episode Created Date Number of Fetuses Patient Bloodtype Patient rh Status Prepregnancy Weight lbs Domestic Partner Domestic Partner Phone Father Name Hazmat Tanker Driver Status 04/02/19 22 1 CLOSED Fetus Data First Name Last Name Admitted to NICU Weight (g) Sex Living Outcome Pediatric Complications Fetus ID Race Codes Race Delivery Type 3543.46 0704 M Prematur e [id number] Primary Laith Calculation Initial Laith Date Initial [...] Complications Tubal Sterilization Discharge Date Comments 0 36.6 Discharge Information Feeding Method Contraceptive Method Maternal HG B and HCT Levels
--- OUTSIDE RECORDS SUMMARY | 2024-03-30 13:06 | XMS_ITS | Clinical Summary ---
Author Organization [facility] Address [facility] [place] [address] [place] [address] Care Team Providers Care Bacteriologist Medical Name Role Phone None, Provider MD Primary Care Provider Unavaila ble Allergies Active Allergy Reactions Criticality Noted Date Comments Buspirone Swelling 12/10/2020 Medications vitamin 27-1 MG Tab tablet Take 1 tablet by mouth daily. Active HYDROcodone-acet aminophen 5-325 MG tabletIndication s:Acute Pain < 7 Day Supply Take 1 tablet by mouth every 4 (four) hours as needed. Indications : Acute Pain < 7 Day Supply 20 tablet 12/12/2020 Active senna-docusate 8.6-50 MG tablet Take 1 tablet by mouth 2 (two) times daily. 60 tablet 2 12/12/2020 Active Active Problems Problem Noted Date Diagnosed Date S/P section 12/12/2020 40 weeks gestation of ([facility]) 2020 Resolved Problems Problem Noted Date Diagnosed Date Resolved Date Spontaneous vaginal delivery ([facility]) 12/12/2020 12/12/2020 Family History Medical History Relation Comments No Known Problems Brother No Known Problems Father No Known Problems Maternal Grandfather No Known Problems Maternal Grandmother No Known Problems Mother Diabetes Paternal Grandfather No Known Problems Paternal Grandmother No Known Problems Sister No Known Problems Son Relation Status Comments Brother Alive Father Alive Maternal Grandfather Alive Maternal Grandmother Alive Mother Alive Paternal Grandfather Alive Paternal Grandmother Alive Sister Alive Son Alive Social History Tobacco Use Types Packs/Day Years [...] Sign Reading Time Taken Comments Blood Pressure 117/68 12/12/2020 7:35 AM CDT Pulse 84 12/12/2020 7:35 AM CDT Temperature 36.9 ??C (98.4 ??F) 12/12/2020 7:35 AM CD T Respiratory Rate 16 12/12/2020 7:35 AM CDT Oxygen Saturation 100% 12/12/2020 7:35 AM CDT Inhaled Oxygen Concentration - - Weight 104.8 kg (231 lb) 12/10/2020 9:00 AM CDT Height 167.6 cm (5' 6 ) 12/10/2020 9:00 AM CDT Body Mass Index 37.28 12/10/2020 9:00 AM CDT Plan of Treatment Health Maintenance Due Date Last Done Comments Cervical Cancer Screening Pa p Smear (Age 30 to 64) Every 3 Years 1992 Annual Physical 08/16/1995 Hepatitis C 2010 HPV Vaccines (3 - 3-dose series) 03/25/2016 12/30/2015, 09/23/2015 DTaP, Tdap and Td Vaccines ( 2 - Td or Tdap) 05/19/2016 05/19/2006 Cervical Cancer Screening Pa p with HPV Testing (Age 30 to 64) Every 5 Years 2022 Cervical Cancer Screening wi th HPV 2022 COVID-19 Vaccine (2023-2 5 season) 2023 Influenza Adult (#1) 2023 Hepatitis B Vaccines Completed 07/01/1994, 1992, 1992 Meningococcal Vaccine Aged Out No rodney cristian eligible based on patient's age to complete this topic Pneumococcal Vaccine: Pediatrics (0 to 5 Years) and At-Risk Patients (6 to 64 Years) Aged Out No longer eligible b ased on patient's age to complete this topic RSV Immunizations Under 20 Months Aged Out No longer eligible b ased on patient's age to complete this topic Insurance [employer] Advance Directives * Full Code (Latest Code Status on File) Date Activated Date Inactivated Comments 12/10/2020 5:20 PM 12/12/2020 4:33 PM Care Teams Bacteriologist Medical Relationship Specialty Start Date End Date None, Provider, PCP - General 12/09/20
--- OUTSIDE RECORDS SUMMARY | 2024-03-30 13:06 | XMS_ITS | Referral Summary ---
Author Organization [facility] Address [facility] [place] [address] Care Team Providers Care Machine Tech Name Role Phone No, Physician Primary Care Provider [phone] Allergies Active Allergy Reactions Criticality Noted Date [...] on file Sexual Orientation Not on file Plan of Treatment Not on file Insurance [facility] Care Teams Machine Tech Relationship Specialty Start Date End Date No, Physician PCP - General 08/05/23
[2024-03-30 14:00] LABS: Basophils Percent Auto 0.3 % (0.2-1.2); Eosinophils Absolute Auto 0.2 K/mm3 (0-0.3); Hematocrit 42.8 % (37.0-47.0); Hemoglobin 14.2 g/dL (12.0-15.0); Immature Granulocyte Absolute 0.02 K/mm3 (0.00-0.031); Immature Granulocyte Percent A 0.3 % (0-0.5); Lymphocytes Absolute Auto 1.76 K/mm3 (0.9-3.2); Mean Corpuscular HGB Conc 33.2 g/dl (32-36); Mean Corpuscular Hemoglobin 32.2 pg (26-34); Mean Corpuscular Volume 97.1 fl (80-100); Mean Platelet Volume 9.2 fl (7.4-10.4); Monocytes Absolute Auto 0.7 K/mm3 (0.1-0.6); Neutrophils Absolute Auto 4.9 K/mm3 (1.3-6.7); Neutrophils Percent Auto 64.4 % (45.5-73.1); Platelet Count Result 177 k/mm3 (150-375); Red Blood Count 4.41 M/mm3 (4.2-5.4); Red Cell Distribution Width 12.4 % (11.5-14.5); White Blood Count 7.7 K/mm3 (4.5-10.0)
[2024-03-30 14:01] LABS: Add Urine Microscopic? NO; Appearance Urine Clear (Clear); Bilirubin Urine Negative (Negative); Blood Urine Negative (Negative); Color Urine Yellow (Yellow); Glucose Urine UA Negative (Negative); Ketones Urine Negative (Negative); Leukocyte Esterase Ur Negative LEU/UL (Negative); Nitrate Urine Negative (Negative); Protein Urine Negative (Negative); Specific Grav Ur 1.018 (1.001-1.035); Urobilinogen Urine 0.2 mg/dL (<2.0); pH Urine 8.5 (5.0-9.0)
[2024-03-30 14:09] LABS: BEDSIDEPREGUCG Negative (Negative)
[2024-03-30 14:11] VITALS: BP 108/75; PULSE 82; RESP 16; TEMP 36.6; O2SAT 100
--- OUTSIDE RECORDS SUMMARY | 2024-03-30 14:16 | XMS_ITS | Encounter Summary ---
Author Organization [facility] Health Address [address] [place] [address] Care Team Providers Care Automatic Tire Tester Name Role Phone Lidia Pope MD Unavailable Encounter Details Date Type Department Care Team (Late st Contact Info) Description 04/26/2013 [facility] Outpatient Visit CG DEFAULT [address] [place] [address] Unknown, Provider Social History Tobacco Use Types [...] on filedocumented in this encounter Care Teams Automatic Tire Tester Relationship Specialty Start Date End Date Lidia Pope MD PCP - Pediatrics 03/13/09 documented as of this encounter
--- OUTSIDE RECORDS SUMMARY | 2024-03-30 14:16 | XMS_ITS | Referral Summary ---
Author Organization [facility] Address [address] [place] [address] Care Team Providers Care Executive Kitchen Manager Name Role Phone Lidia Pope MD Unavailable Source Comments [facility],non-owned Affiliates and Associated Physician Practices is amultiple site organization consisting of ambulatory clinics and hospital sitesin [place], [place], [place] and [place]. This disclosure is being madepursuant to the Care Everywhere program and may not contain all information available regarding this patient. Last updated 17.[facility] Allergies Active Allergy Reactions Criticality Noted Date [...] Comments Blood Pressure 102/52 02/16/2014 11:00 AM RAILROAD REPAIRER Pulse 95 02/16/2014 11:36 AM RAILROAD REPAIRER Temperature 36.8 ??C (98.2 ??F) 02/16/2014 11:[address] Respiratory Rate 16 02/16/2014 11:36 AM RAILROAD REPAIRER Oxygen Saturation 100% 02/16/2014 11:36 AM RAILROAD REPAIRER Inhaled Oxygen Concentration - - Weight 69.9 kg (154 lb) 02/16/2014 1:32 PM RAILROAD REPAIRER Height 167.6 cm (5' 6 ) 02/16/2014 1:32 PM RAILROAD REPAIRER Body Mass Index 24.86 02/16/2014 1:32 PM RAILROAD REPAIRER Plan of Treatment Not on file Administered Medications Care Teams Executive Kitchen Manager Relationship Specialty Start Date End Date Lidia Pope MD PCP - Pediatrics 03/13/09
--- OUTSIDE RECORDS SUMMARY | 2024-03-30 14:16 | XMS_ITS | Continuity of Care Document ---
Author Organization [facility] Address [address] [place] [address] Phone Care Team Providers Care Catalog Library Assistant Name Role Phone Isidro Crawford MD Unavailable Unavailable Allergies, Adverse Reactions, Alerts Substance Reaction Status Criticality No Known Allergies Active No Inform ation Medications Medication Instructions Dosage Effective Dates (start - stop) Status Comments Lamictal 100 mg tablet take 1 tablet (100MG) by oral route every day 100 MG - Active Klonopin 1 mg tablet take 1 tablet (1MG) by oral route every 4 - 6 hours as needed 1 MG - Active PRN for anxiety, avoid driving or operate machines Lexapro 20 mg tablet take 1 tablet (20MG) by oral route every day 20 MG - Active Procedures Procedure Date OFFICE/OUTPATIENT VISIT, EST OFFICE/OUTPATIENT VISIT, EST OFFICE/OUTPATIENT VISIT, EST OFFICE/OUTPATIENT VISIT, EST PREV VISIT, NEW, AGE 18-39 OFFICE/OUTPATIENT VISIT, NEW Advance Directives Directive Yes / No Effective Date File Name No Information Encounters Encounter Description Practice Location Reason(s) For Visit Diagnoses Date Provider Providers Copied on Encounter OFFICE/OUTPA TIENT VISIT, EST [facility], [address] [place], [id number], tel:[phone] [facility] anxiety (chief complaint) mood swing (chief complaint) Generalized anxiety disorderBipolar disorder, unspecifiedDepressi on [address]. [address] [facility] [place], [id number] , [place]. tel:[phone] Referring Provider: Isidro Crawford, [address], [place], [place], [id number]. tel:[phone] OFFICE/OUTPA TIENT VISIT, [facility], [address], [place], [place], [id number], [place] [phone] [facility] anxiety (chief complaint) panic attacks (chief complaint) Bipolar disorder, unspecifiedGenerali zed anxiety disorderDepression 0-[address]. [address], [place], [place], [id number] , [place]. [phone] Referring Provider: [address], [place], [place], [id number]. tel:[phone] OFFICE/OUTPA TIENT VISIT, [facility], [address], [place], [place], [id number], [place] tel:[phone] [facility] anxiety (chief complaint) mood swing (chief complaint) Major depressive affective disorder, single episode, mild degreeGeneralized anxiety disorderBipolar disorder, unspecified [address]. [address], [place], [place], [address] , [place]. [phone] Referring Provider: Byron [address], [place], [place], [address]. tel:[phone] OFFICE/OUTPA TIENT VISIT, [facility], [address], [place], [place], [id number], [place] tel:[phone] [facility] anxiety (chief complaint) Major depressive affective disorder, single episode, mild degreeGeneralized anxiety disorder [address]. [address], [place], [place], [address] , [place]. [phone] Referring Provider: [address], [place], [place], [id number]. tel:[phone] PREV VISIT, NEW, AGE 18-39 [facility], [address], [place], [place], [address], [place] tel:[phone] [facility] Family Medicine Physical (chief complaint) Routine Medical ExamGeneralized anxiety disorderMajor depressive affective disorder, single episode, mild degreeRoutine Medical Exam [address]. [address], [place], [place], [id number] , [place]. tel:[phone] Family History Family Member Type Diagnosis Age At Onset Mother Problem (finding) Bipolar Disorder Mother Problem (finding) Anxiety Father Problem (finding) Coronary artery disease Brother Problem (finding) Alive and well Payers Payer name Insurance type Covered constitution party ID Authoriza tion(s) No Information Social History [...] Mental Status Date Cognitive Assessment Orientation - Mimbres ed to time, place, person, situation.
--- OUTSIDE RECORDS SUMMARY | 2024-03-30 14:16 | XMS_ITS | Patient Health Summary ---
Author Organization [facility] Address [address] [place] [address] Care Team Providers Care Oil And Gas Exploration Technician Name Role Phone Lidia Pope MD Unavailable Note from [facility],non-owned Affiliates and Associated Physician Practices is amultiple site organization consisting of ambulatory clinics and hospital sitesin [place], [place], [place] and [place]. This disclosure is being madepursuant to the Care Everywhere program and may not contain all information available regarding this patient. Last updated 17.[facility] Allergies * Peanut-Derived(Headache, tongue tingles.) Medications * [...] Comments Blood Pressure 102/52 02/16/2014 11:00 AM CARTON FORMING MACHINE HELPER Pulse 95 02/16/2014 11:36 AM CARTON FORMING MACHINE HELPER Temperature 36.8 ??C (98.2 ??F) 02/16/2014 11:[address] Respiratory Rate 16 02/16/2014 11:36 AM CARTON FORMING MACHINE HELPER Oxygen Saturation 100% 02/16/2014 11:36 AM CARTON FORMING MACHINE HELPER Inhaled Oxygen Concentration - - Weight 69.9 kg (154 lb) 02/16/2014 1:32 PM CARTON FORMING MACHINE HELPER Height 167.6 cm (5' 6 ) 02/16/2014 1:32 PM CARTON FORMING MACHINE HELPER Body Mass Index 24.86 02/16/2014 1:32 PM CARTON FORMING MACHINE HELPER Procedures * SKIN TEST PPD - POINT [...] Unknown 11/29/2018 3:40 PM CDT Brooks Moeller ENTRY EXAMINER-GUITAR REPAIR TECHNICIAN LAB - POINT OF CARE ORDERABLES * CT HEAD NON CONTRAST (12/09/2015) Only the most recent of3 resultswithin the time period is included. Anatomical Region Laterality Modality Head Other Paul Fajardo PA-C CT ORDERABLES * HCG URINE QUALITATIVE - POCT (IP) [facility] (02/16/2014 9:19 AM CARTON FORMING MACHINE HELPER) Only the most recent of2 resultswithin the time period is included. Test Urine negative [facility] Urine specimen (specimen) 02/16/2014 9:19 AM CARTON FORMING MACHINE HELPER Dez Lu MD LAB - POINT OF CARE ORDERABLES Performing Organization Address City/[facility]/ZIP Co de Phone Number [facility] * URINALYSIS W/MICROSCOPIC NO CULTURE (02/16/2014 9:17 AM CARTON FORMING MACHINE HELPER) Color UA Yellow Straw, Yellow, Colorless, Light Yellow [facility] Clarity UA Clear Clear [facility] Specific [place] UA 1.008 1.001 - 1.030 [facility] pH UA 5.0 5.0 - 8.0 [facility] Protein UA Negative <=20 mg/dL [facility] Glucose UA Negative Negative mg/dL [facility] Ketone UA Negative Negative mg/dL [facility] Bilirubin UA Negative Negative mg/dL [facility] Blood UA Negative Negative [facility] Nitrite UA Negative Negative [facility] Leukocyte Esterase Negative Negative [facility] Urobilinogen UA <2.0 <2.0 mg/dL [facility] RBC UA <1 0 - 8 /HPF [facility] Urine specimen (specimen) 02/16/2014 9:17 AM CARTON FORMING MACHINE HELPER 02/16/2014 9:23 AM CARTON FORMING MACHINE HELPER Dez Lu MD LAB - URINALYSIS ORD ERABLES [facility] [address] [phone] * DRUG ABUSE PANEL 10-20+ETHANOL URINE NO CONFIRM (02/16/2014 9:17 AM CARTON FORMING MACHINE HELPER) Amphetamines Screen Urine Negative Negative: < 1000 ng/mL [facility] Barbiturates Screen Urine Negative Negative: < 200 ng/mL [facility] Benzodiazepine Screen Urine Negative Negative: < 200 ng/mL [facility] Opiates Urine Negative Negative: < 300 ng/mL [facility] Cocaine Metabolites Urine Negative Negative: < 300 ng/mL [facility] Phencyclidine Screen Urine Negative Negative: < 25 ng/ml [facility] Cannabinoids Screen Urine Negative Negative: <50 ng/mL [facility] Methadone Screen Urine Negative Negative: < 300 ng/mL [facility] Urine specimen (specimen) URINE / Unknown 02/16/2014 9:17 AM CARTON FORMING MACHINE HELPER 02/16/2014 9:23 AM CARTON FORMING MACHINE HELPER Narrative [facility] - 02/16/2014 9:49 AM CARTON FORMING MACHINE HELPER The Urine Toxicology Screening Panel does not screen for Propoxyphene, Meprobamate, Carisoprodol, Trazodone, qtof-khd-swbvjbu medications and/or volatiles (Acetone, Isopropanol, Methanol or Ethylene Glycol). Ethanol, Salicylate, Acetaminophen, Tricyclic Antidepressants and several therapeutic drugs may be individually assayed in serum or plasma specimen. Toxicology testing by the [facility] is an aid to medical diagnosis and treatment of patients. No documented chain of custody was maintained. Results are intended to be used for clinical purposes only. ? Dez Lu MD LAB - URINE CHEMISTR Y ORDERABLES Performing Organization Address [facility]/ZIP Co de Phone Number [address] [phone] * PTT [facility] (02/16/2014 9:07 AM CARTON FORMING MACHINE HELPER) Only the most recent of2 resultswithin the time period is included. APTT 28.8 23.0 - 38.4 Seconds [facility] Comment:Suggested therapeuti c range for full dose I.V. heparin therapy for venous thromboembolism is 66.0-91.0 seconds. Blood specimen (specimen) BLOOD SPECIMEN / Unknown 02/16/2014 9:07 AM CARTON FORMING MACHINE HELPER 02/16/2014 9:12 AM CARTON FORMING MACHINE HELPER Narrative [facility] - 02/16/2014 10:15 AM CARTON FORMING MACHINE HELPER Is patient on Heparin, Argatroban or Dabigatran?->N Amarjit House MD LAB - COAGULATION OR DERABLES Performing Organization Address [facility] Co de Phone Number [address] [phone] * PT-INR [facility] (02/16/2014 9:07 AM CARTON FORMING MACHINE HELPER) Only the most recent of2 resultswithin the time period is included. PT 14.7 12.1 - 14.8 Seconds [facility] INR 1.1 See Comment [facility] Comment: Suggested therapeutic range for low-intensity coumadin therapy for venous thromboembolism prophylaxis is an INR of 2.0-3.0. ??For high risk patients (Mitral Valve Prosthesis, Atrial Fibrillation, history of TIA/stroke), suggested prophylactic therapeutic range is an INR of 2.5-3.5. Blood specimen (specimen) BLOOD SPECIMEN / Unknown 02/16/2014 9:07 AM CARTON FORMING MACHINE HELPER 02/16/2014 9:12 AM CARTON FORMING MACHINE HELPER Narrative [facility] - 02/16/2014 10:15 AM CARTON FORMING MACHINE HELPER Is patient on Heparin, Argatroban or Dabigatran?->N Amarjit House MD LAB - COAGULATION OR DERABLES [place] [id number] [address] [phone] * XR PELVIS 1 OR 2VW (02/16/2014 8:39 AM CARTON FORMING MACHINE HELPER) Anatomical Region Laterality Modality Pelvis Other Impressions 02/16/2014 10:00 AM CARTON FORMING MACHINE HELPER IMPRESSION: 1. No acute osseous injury. Report dictated by Annette Anglin M.D. I, Dr. CAL CABRERA M.D. have personally reviewed and interpreted this examination/study. This report was electronically signed by CAL CABRERA M.D. ??on 02/16/2014 10:00 AM . Narrative 02/16/2014 10:00 AM CARTON FORMING MACHINE HELPER EXAMINATION: Portable pelvis, single AP supine view [...] ABDOMEN PELVIS W CONT (02/16/2014 8:31 AM CARTON FORMING MACHINE HELPER) Anatomical Region Laterality Modality Chest, Abdomen, Pelvis Other Impressions 02/16/2014 10:08 AM CARTON FORMING MACHINE HELPER IMPRESSION: No acute traumatic injury in the chest, abdomen, or pelvis. Dr. Harvey discussed the preliminary findings with Dr. Lu at 9:09 AM on 02/16/2014. Dictated by Marshal Harvey MD. (Resident) I, Dr. CAL CABRERA M.D. have personally reviewed and interpreted this examination/study. This report was electronically signed by CAL CABRERA M.D. ??on 02/16/2014 10:08 AM . Narrative 02/16/2014 10:08 AM CARTON FORMING MACHINE HELPER EXAMINATION: Computed tomography of the chest, abdomen, [...] LUMBAR SPINE WO CONTRAST (02/16/2014 8:31 AM CARTON FORMING MACHINE HELPER) Anatomical Region Laterality Modality Spine Other Impressions 02/16/2014 12:43 PM CARTON FORMING MACHINE HELPER IMPRESSION: 1. No acute intracranial process. 2. [...] 12:43 PM . Narrative 02/16/2014 12:43 PM CARTON FORMING MACHINE HELPER EXAMINATION: 1. Computed tomography (CT) of the [...] THORACIC SPINE WO CONTRAST (02/16/2014 8:31 AM CARTON FORMING MACHINE HELPER) Anatomical Region Laterality Modality Spine Other Impressions 02/16/2014 12:43 PM CARTON FORMING MACHINE HELPER IMPRESSION: 1. No acute intracranial process. 2. [...] 12:43 PM . Narrative 02/16/2014 12:43 PM CARTON FORMING MACHINE HELPER EXAMINATION: 1. Computed tomography (CT) of the [...] CERVICAL SPINE WO CONTRAST (02/16/2014 8:31 AM CARTON FORMING MACHINE HELPER) Anatomical Region Laterality Modality Spine Other Impressions 02/16/2014 12:43 PM CARTON FORMING MACHINE HELPER IMPRESSION: 1. No acute intracranial process. 2. [...] 12:43 PM . Narrative 02/16/2014 12:43 PM CARTON FORMING MACHINE HELPER EXAMINATION: 1. Computed tomography (CT) of the [...] * CT ANGIO NECK (02/16/2014 8:31 AM CARTON FORMING MACHINE HELPER) Anatomical Region Laterality Modality Head Other Impressions 02/16/2014 12:43 PM CARTON FORMING MACHINE HELPER IMPRESSION: 1. No acute intracranial process. 2. [...] 12:43 PM . Narrative 02/16/2014 12:43 PM CARTON FORMING MACHINE HELPER EXAMINATION: 1. Computed tomography (CT) of the [...] FACIAL BONES WO CONTRAST (02/16/2014 8:31 AM CARTON FORMING MACHINE HELPER) Anatomical Region Laterality Modality Head Other Impressions 02/16/2014 12:43 PM CARTON FORMING MACHINE HELPER IMPRESSION: 1. No acute intracranial process. 2. [...] 12:43 PM . Narrative 02/16/2014 12:43 PM CARTON FORMING MACHINE HELPER EXAMINATION: 1. Computed tomography (CT) of the [...] W RIGHT HIP 2VW (02/16/2014 8:12 AM CARTON FORMING MACHINE HELPER) Anatomical Region Laterality Modality Other Impressions 02/16/2014 10:00 AM CARTON FORMING MACHINE HELPER IMPRESSION: 1. No acute osseous injury. Report dictated by Annette Anglin M.D. I, Dr. CAL CABRERA M.D. have personally reviewed and interpreted this examination/study. This report was electronically signed by CAL CABRERA M.D. ??on 02/16/2014 10:00 AM . Narrative 02/16/2014 10:00 AM CARTON FORMING MACHINE HELPER EXAM: Portable right hip, AP and lateral [...] XR CHEST 1VW PORTABLE (02/16/2014 8:11 AM CARTON FORMING MACHINE HELPER) Anatomical Region Laterality Modality Chest Other Impressions 02/16/2014 9:59 AM CARTON FORMING MACHINE HELPER IMPRESSION: 1. No acute pulmonary disease. Report dictated by Annette Anglin M.D. I, Dr. CAL CABRERA M.D. have personally reviewed and interpreted this examination/study. This report was electronically signed by CAL CABRERA M.D. ??on 02/16/2014 9:59 AM . Narrative 02/16/2014 9:59 AM CARTON FORMING MACHINE HELPER EXAM: Portable chest, AP supine view HISTORY: [...] CBC W AUTO DIFFERENTIAL (02/16/2014 7:55 AM CARTON FORMING MACHINE HELPER) Only the most recent of2 resultswithin the time period is included. WBC 6.9 3.5 - 10.5 10? 3 /uL [facility] RBC 4.26 3.90 - 5.00 10? 6 /uL [facility] Hemoglobin 13.6 12.0 - 15.5 g/dL [facility] Hematocrit 38.8 35.0 - 45.0 % [facility] MCV 91.1 81.0 - 97.0 fL [facility] MCH 31.9 28.0 - 34.0 pg [facility] MCHC 35.1 32.0 - 36.0 g/dL [facility] Platelet Count 216 150 - 400 10? 3 /uL [facility] RDW-SD 41.1 36.0 - 50.0 fL [facility] RDW-CV 12.4 11.2 - 14.8 % [facility] MPV 9.8 9.3 - 12.8 fL [facility] nRBC Absolute 0.00 0 10? 3 /uL [facility] nRBC Auto 0.0 0 /100 WBC [facility] Neutrophils % 52.5 35.0 - 70.0 % [facility] Lymphocytes % 40.9 19.7 - 55.1 % [facility] Monocytes % 5.9 3.0 - 15.0 % [facility] Eosinophils % 0.6 0.0 - 6.0 % [facility] Basophil % 0.1 0.0 - 1.5 % [facility] Neutrophils Absolute 3.6 1.6 - 7.0 10? 3 /uL [facility] Lymphocyte Absolute 2.8 0.8 - 2.9 10? 3 /uL [facility] Monocytes Absolute 0.41 0.14 - 0.66 10? 3 /uL [facility] Eosinophils Absolute 0.04 0.00 - 0.22 10? 3 /uL [facility] Basophils Absolute 0.01 0.00 - 0.06 10? 3 /uL [facility] Immature Granulocytes % 0.1 0.0 - 1.0 % [facility] Blood specimen (specimen) BLOOD SPECIMEN / Unknown 02/16/2014 7:55 AM CARTON FORMING MACHINE HELPER 02/16/2014 8:11 AM CARTON FORMING MACHINE HELPER Dez Lu MD LAB - HEMATOLOGY ORD ERABLES Performing Organization Address City/[facility]/ZIP Co de Phone Number [address] [phone] * (ABNORMAL) BLOOD GASES DANDRE (02/16/2014 7:55 AM CARTON FORMING MACHINE HELPER) pH Mixed Venous 7.39 7.30 - 7.40 [facility] pCO2 Mixed Venous 37(L) 40 - 46 mmHg [facility] pO2 Mixed Venous 65(H) 35 - 42 mmHg [facility] HCO3 Mixed Venous 22.1 22.0 - 26.0 mmol/L [facility] TCO2 Mixed Venous 23.3(L) 25.0 - 29.0 mmol/L [facility] Base Excess Venous -1.9 -2.0 - 2.0 mmol/L [facility] Hemoglobin Mixed Venous 13.0 12.0 - 15.5 g/dL [facility] Oxyhemoglobin Mixed Venous 85.9(H) 66.0 - 77.0 % [facility] Carboxyhemoglobin Venous 5.9(H) 0.0 - 3.0 % [facility] Methemoglobin 2.1(H) 0.0 - 2.0 % [facility] FI O2 Mixed Venous 21.0 % [facility] Blood specimen (specimen) BLOOD SPECIMEN / Unknown 02/16/2014 7:55 AM CARTON FORMING MACHINE HELPER 02/16/2014 8:16 AM CARTON FORMING MACHINE HELPER Narrative [facility] - 02/16/2014 8:21 AM CARTON FORMING MACHINE HELPER FI02->21 Dez Lu MD LAB - BLOOD GASES OR DERABLES Performing Organization Address City/[facility]/ZIP Co de Phone Number [address] [phone] * (ABNORMAL) COMPREHENSIVE METABOLIC PANEL (02/16/2014 7:55 AM CARTON FORMING MACHINE HELPER) BUN 9 7 - 26 mg/dL [facility] Creatinine 0.6 0.6 - 1.2 mg/dL [facility] Sodium 141 136 - 145 mmol/L [facility] Potassium 3.8 3.5 - 4.5 mmol/L [facility] Chloride 108(H) 98 - 107 mmol/L [facility] CO2 20(L) 22 - 29 mmol/L [facility] Glucose 103 70 - 115 mg/dL [facility] Calcium 9.1 8.4 - 10.2 mg/dL [facility] Protein Total 7.6 6.0 - 8.3 g/dL [facility] Albumin 4.3 3.4 - 5.0 g/dL [facility] Bilirubin Total 0.1(L) 0.2 - 1.2 mg/dL [facility] Alkaline Phosphatase 70 40 - 150 Units/L [facility] ALT 30 0 - 55 Units/L [facility] AST 24 5 - 34 Units/L [facility] Anion Gap 17 8 - 18 [facility] BUN/Creatinine Ratio 15 7 - 23 [facility] Osmolality Calculated 276 270 - 300 mOsm/kg [facility] Albumin/Globulin Ratio 1.3 1.1 - 2.3 [facility] eGFR >60 >60 mL/min/1.7 3 m2 [facility] Blood specimen (specimen) BLOOD SPECIMEN / Unknown 02/16/2014 7:55 AM CARTON FORMING MACHINE HELPER 02/16/2014 8:19 AM CARTON FORMING MACHINE HELPER Dez Lu MD LAB - CHEMISTRY ABEBA WHITMORE [address] [phone] * ALCOHOL ETHYL BLOOD (02/16/2014 7:55 AM CARTON FORMING MACHINE HELPER) Ethanol (mg/dL) 199 None Detected mg/dL [facility] Comment:Ethanol in the patie nt's blood will contribute to the osmolar gap. Ethanol's contribution to the osmolar gap can be estimated by dividing the concentration of ethanol in mg/dL by 4.6. Blood specimen (specimen) BLOOD SPECIMEN / Unknown 02/16/2014 7:55 AM CARTON FORMING MACHINE HELPER 02/16/2014 8:19 AM CARTON FORMING MACHINE HELPER Dez Lu MD LAB - CHEMISTRY ABEBA WHITMORE [facility] [address] [place] [address] * TYPE + SCREEN PANEL (02/16/2014 7:47 AM CARTON FORMING MACHINE HELPER) Typem A POS [facility] Antibody Screen NEG [facility] Blood specimen (specimen) BLOOD SPECIMEN / Unknown 02/16/2014 7:47 AM CARTON FORMING MACHINE HELPER 02/16/2014 8:02 AM CARTON FORMING MACHINE HELPER Dez Lu MD LAB - BLOOD BANK ORD DALILA Performing Organization Address [facility] Co de Phone Number [facility] [address] [place] [address] * XR PELVIS W RIGHT HIP 1VW (10/22/2013) Anatomical Region Laterality Modality Other Emergency Physician DIAGNOSTIC IMAGING O RDERABLES * CHLAMYDIA + GC AMPLIFIED PROBE (03/03/2012 1:21 PM CARTON FORMING MACHINE HELPER) Chlamydia ELLI Urine Negative Negative [facility] ACCOUNT [...] (specimen) URINE / Unknown 03/03/2012 1:21 PM CARTON FORMING MACHINE HELPER 03/03/2012 9:54 PM CARTON FORMING MACHINE HELPER Narrative Resulting Agency Comment [facility] [address] ??[facility] [phone] Lidia Pope MD LAB - MICROBIOLOGY O RDERABLES Performing Organization Address City/[facility]/ZIP Co de Phone Number [facility] ACCOUNT BILL * GC PCR URINE (06/24/2011 1:27 PM CDT) GC ELLI Urine Negative Negative [facility] ACCOUNT BILL URINE / Unknown 06/24/2011 1 :27 PM CDT 06/24/2011 8:44 PM CDT Narrative Resulting Agency Comment [facility] [place] [address] ??[facility] [phone] Lidia Pope MD LAB - MICROBIOLOGY O [...] pH units Blood UA 1+ Negative Specific [place] UA POCT 1.030 1.002 - 1.030 Ketone [...] - POINT OF CARE (02/09/2010 5:00 PM CARTON FORMING MACHINE HELPER) Influenza A Antigen Rapid NEG Negative Influenza B Antigen Rapid NEG Negative Influenza Internal Control NEGATIVE - POSITIVE Influenza Lot Number Influenza Expiration Date SPECIMEN FROM NASOPHARYNGEAL STRUCTURE / Unknown 02/09/2010 5:00 PM CARTON FORMING MACHINE HELPER Jennyfer Reyes MD LAB - POINT OF [...] PM CDT Narrative Resulting Agency Comment [facility] [place] [address] ??[facility] [phone] Jennyfer Reyes MD LAB - MICROBIOLOGY O RDERABLES [facility] ACCOUNT BILL Care Teams Oil And Gas Exploration Technician Relationship Specialty Start Date End Date Lidia Pope MD PCP - Pediatrics 03/13/09
--- OUTSIDE RECORDS SUMMARY | 2024-03-30 14:17 | XMS_ITS | Encounter Summary ---
Author Organization [facility] Address [address] [place] [address]. [place] [address] [place] [address] Care Team Providers Care Cmv Driver Name Role Phone None, Provider Primary Care Provider Unavaila ble Encounter Details Date Type Department Care Team (Late st Contact Info) Description 12/28/2020 Hospital Follow-up Call [facility] [place], [place] [id number] Raisa Mancia, RN Social History Tobacco Use [...] on filedocumented in this encounter Care Teams Cmv Driver Relationship Specialty Start Date End Date None, Provider, PCP - General 12/09/20 documented as of this encounter
--- OUTSIDE RECORDS SUMMARY | 2024-03-30 14:17 | XMS_ITS | Clinical Summary ---
Author Organization [facility] Address [address] [place] [address] Care Team Providers Care Life Scientists Name Role Phone Lidia Pope MD Unavailable Source Comments [facility],non-owned Affiliates and Associated Physician Practices is amultiple site organization consisting of ambulatory clinics and hospital sitesin [place], [place], [place]. This disclosure is being madepursuant to the Care Everywhere program and may not contain all information available regarding this patient. Last updated 17.[facility] Allergies Active Allergy Reactions Criticality Noted Date [...] Comments Blood Pressure 102/52 02/16/2014 11:00 AM CHIEF TALENT OFFICER Pulse 95 02/16/2014 11:36 AM CHIEF TALENT OFFICER Temperature 36.8 ??C (98.2 ??F) 02/16/2014 11:[address] Respiratory Rate 16 02/16/2014 11:36 AM CHIEF TALENT OFFICER Oxygen Saturation 100% 02/16/2014 11:36 AM CHIEF TALENT OFFICER Inhaled Oxygen Concentration - - Weight 69.9 kg (154 lb) 02/16/2014 1:32 PM CHIEF TALENT OFFICER Height 167.6 cm (5' 6 ) 02/16/2014 1:32 PM CHIEF TALENT OFFICER Body Mass Index 24.86 02/16/2014 1:32 PM CHIEF TALENT OFFICER Plan of Treatment Health Maintenance Due Date [...] age to complete this topic Care Teams Life Scientists Relationship Specialty Start Date End Date Lidia Pope MD PCP - Pediatrics 03/13/09
--- OUTSIDE RECORDS SUMMARY | 2024-03-30 14:17 | XMS_ITS | Referral Summary ---
Author Organization [facility] Address [facility] [place] [address] Care Team Providers Care Parts Sales Manager Name Role Phone No, Physician Primary Care Provider [phone] Allergies Active Allergy Reactions Criticality Noted Date [...] Plan of Treatment Not on file Insurance [facility] Care Teams Parts Sales Manager Relationship Specialty Start Date End Date No, Physician PCP - General 08/05/23
--- OUTSIDE RECORDS SUMMARY | 2024-03-30 14:17 | XMS_ITS | Clinical Summary ---
Author Organization [facility] Address [address] [place] [address] Care Team Providers Care Ice Cream Truck Driver Name Role Phone No, Physician Primary Care Provider [phone] Allergies Active Allergy Reactions Criticality Noted Date [...] 02/16/2014, 05/19/2006, 07/01/1994, Additional history exists Insurance [facility] Care Teams Ice Cream Truck Driver Relationship Specialty Start Date End Date No, Physician PCP - General 08/05/23
--- OUTSIDE RECORDS SUMMARY | 2024-03-30 14:17 | XMS_ITS | Clinical Summary ---
Author Organization [facility] Address [facility] [facility] [place] [address] [place] [address] Care Team Providers Care Dental Assistant Teacher Name Role Phone None, Provider MD Primary [...] S/P section 12/12/2020 40 weeks gestation of ([facility]) 2020 Resolved Problems Problem Noted Date Diagnosed Date Resolved Date Spontaneous vaginal delivery ([facility]) 12/12/2020 12/12/2020 Family History Medical History Relation [...] patient's age to complete this topic Insurance [place] Advance Directives * Full Code (Latest Code Status on File) Date Activated Date Inactivated Comments 12/10/2020 5:20 PM 12/12/2020 4:33 PM Care Teams Dental Assistant Teacher Relationship Specialty Start Date End Date None, Provider, PCP - General 12/09/20
[2024-03-30 14:23] LABS: Alanine Aminotransferase 16 U/L (6-35); Albumin Level 4.5 g/dL (3.5-5.1); Alkaline Phosphatase 60 U/L (38-126); Anion Gap 9 mmol/L (4-12); Aspartate Amino Transferase 18 U/L (14-36); Bilirubin,Total 0.5 mg/dL (0.2-1.3); Blood Urea Nitrogen 9 mg/dL (7-17); Calcium 8.8 mg/dL (8.4-10.2); Carbon Dioxide 28 mmol/L (22-30); Chloride 101 mmol/L (98-107); Estimated Glomerular Filt Rate > 60; Glucose 91 mg/dL (65-110); Lipase 43 U/L (23-300); Potassium 4.2 mmol/L (3.4-5.0); Sodium 138 mmol/L (137-145)
--- NOTE | 2024-03-30 15:39 | ED.ABDPAIN ---
HPI - Abdominal Pain General Chief Complaint: Abdominal Pain Stated Complaint: lower abd pain Time Seen by Provider: 03/30/24 14:08 Source: patient Mode of arrival: ambulatory Limitations: no limitations History of Present Illness HPI narrative: 33-year-old otherwise healthy with the complaints of lower abdominal pain which started he few days ago. She states that she went to urgent care and was later referred to the ER. She denies any nausea or vomiting. No history of fever or chills. Denies any vaginal bleeding or discharge. MD elicited complaint: abdominal pain Pertinent past history: none Onset (ago): day(s) (4) Pain Consistency: intermittent Location: suprapubic and pelvis Severity: mild Quality: aching Radiation: none Migration to: no migration Related Data Home Medications ?Medication ?Instructions ?Recorded ?Confirmed ?Last Taken ?Type fluconazole 150 mg tablet mg 03/26/24 Unknown History Allergies Allergy/AdvReac Type Severity Reaction Status Date / Time buspirone Allergy Severe Swelling Verified 03/30/24 12:56 of Lip/Tongue/Throat peanut Allergy Severe Swelling Verified 03/30/24 12:56 of Lip/Tongue/Throat PMFSH Past Medical History Medical History Smoker Yeast infection Currently Family History Family History Other No pertinent family history Social History Social History Years smoked: 6 Smoking status: Former smoker Tobacco type: cigarettes Second hand tobacco smoke exposure: No Substance use: never Gender identity (if verbalized by the patient): Female Spiritual care concerns: No Exam Narrative: GENERAL: Well-appearing, well-nourished, and in no acute distress. HEAD: Normocephalic, atraumatic. EYES: PERRLA and EOMI. ENT: Nares clear, no rhinorrhea or epistaxis. Mucous membranes moist. NECK: Supple. CHEST: Clear to auscultation. No respiratory distress. HEART: Regular rate and rhythm. No murmur heard. Normal peripheral pulses. ABDOMEN: Soft, nontender, nondistended, normal active bowel sounds. EXTREMITIES: Normal range of motion. No edema. SKIN: Warm, dry, no rash. NEURO: No focal deficits. Alert and oriented x3. PSYCH: Normal mood and affect. Course Course Emergency Course: Notified patient about her lab work, ultrasound findings positive for pain is unknown. Advised to take Tylenol ibuprofen for pain, follow with the primary doctor Vital Signs Vital signs: Vital Signs Temperature 36.4 C 03/30/24 12:59 Pulse Rate 88 03/30/24 12:59 Respiratory Rate 16 03/30/24 12:59 Blood Pressure 128/57 L 03/30/24 12:59 Pulse Oximetry 100 03/30/24 12:59 Temperature 36.6 C 03/30/24 14:11 Pulse Rate 82 03/30/24 14:11 Respiratory Rate 16 03/30/24 14:11 Blood Pressure 108/75 03/30/24 14:11 Pulse Oximetry 100 03/30/24 14:11 MDM - Abdominal Pain Lab Data 03/30/24 13:52 03/30/24 13:52 Labs: Lab Results 03/30/24 03/30/24 Range/Units 13:52 14:07 WBC 7.7 (4.5-10.0) K/mm3 RBC 4.41 (4.2-5.4) M/mm3 Hgb 14.2 (12.0-15.0) g/dL Hct 42.8 (37.0-47.0) % MCV 97.1 (80-100) fl MCH 32.2 (26-34) pg MCHC 33.2 (32-36) g/dl RDW 12.4 (11.5-14.5) % Plt Count 177 (150-375) k/mm3 MPV 9.2 (7.4-10.4) fl Immature Gran % (Auto) 0.3 (0-0.5) % Neut % (Auto) 64.4 (45.5-73.1) % Lymph % (Auto) 23.0 (18.3-44.2) % Johnson % (Auto) 9.0 H (2.6-8.5) % Eos % (Auto) 3.0 (0-4.4) % Baso % (Auto) 0.3 (0.2-1.2) % Lymph # (Auto) 1.76 (0.9-3.2) K/mm3 Johnson # (Auto) 0.7 H (0.1-0.6) K/mm3 Eos # (Auto) 0.2 (0-0.3) K/mm3 Baso # (Auto) 0.0 (0.0-0.1) K/mm3 Abs Immat Gran (auto) 0.02 (0.00-0.031) K/mm3 Absolute Neuts (auto) 4.9 (1.3-6.7) K/mm3 Absolute Nucleated RBC 0.000 (0.0-0.012) K/mm3 Nucleated RBC % 0.0 (0.0-0.2) % Sodium 138 (137-145) mmol/L Potassium 4.2 (3.4-5.0) mmol/L Chloride 101 (98-107) mmol/L Carbon Dioxide 28 (22-30) mmol/L Anion Gap 9 (4-12) mmol/L BUN 9 (7-17) mg/dL Creatinine 0.60 L (0.7-1.0) mg/dL Estim Creat Clear Calc Not Reportable Estimated GFR > 60 (59 - ) Glucose 91 (65-110) mg/dL Calcium 8.8 (8.4-10.2) mg/dL Total Bilirubin 0.5 (0.2-1.3) mg/dL AST 18 (14-36) U/L ALT 16 (6-35) U/L Alkaline Phosphatase 60 (38-126) U/L Total Protein 7.0 (6.3-8.2) g/dL Albumin 4.5 (3.5-5.1) g/dL Lipase 43 (23-300) U/L Urine Color Yellow (Yellow) Urine Appearance Clear (Clear) Urine pH 8.5 (5.0-9.0) Ur Specific [place] 1.018 (1.001-1.035) Urine Protein Negative (Negative) mg/dL Urine Glucose (UA) Negative (Negative) mg/dL Urine Ketones Negative (Negative) mg/dL Ur Blood (Man) Negative (Negative) Urine Nitrate Negative (Negative) Urine Bilirubin Negative (Negative) Urine Urobilinogen 0.2 (<2.0) mg/dL Leukocyte Esterase Rfl Negative (Negative) AURELIO/UL POC Urine HCG, Qual Negative (Negative) Imaging Data Radiologist's impression: ITS Impressions Pelvis Ultrasound 03/30/24 15:04 IMPRESSION: 1. Normal pelvic ultrasound. Discharge Plan Discharge Clinical Impression: Abdominal pain Qualifiers: Abdominal location: lower abdomen, unspecified Qualified Code(s): R10.30 - Lower abdominal pain, unspecified Patient Disposition: Home, Self-Care Condition: Stable Instructions: Abdominal Pain (ED) Additional Instructions: Can take Tylenol or ibuprofen for pain , follow with your doctor. Patient Language: Paraguayan Prescriptions: No Action fluconazole 150 mg tablet Follow-up/Referrals: UNKNOWN,DOCTOR [Primary Care Provider] - Time of Disposition: 15:39
== END 2024-03-30 15:48 | disposition home or self-care (01) ==
PROVIDERS: Emergency Provider Family Medicine
DX: R10.30 Lower abdominal pain, unspecified (principal); Z87.891 Personal history of nicotine dependence
CPT/HCPCS: 36415; 76856; 80053; 81003; 81025; 83690; 85025; 99284

== ENCOUNTER 2024-07-31 16:16 | Emergency (ER) | payer OTHER, SELFPAY ==
--- NOTE | ~2024-07-31 | US_ITS ---
US renal BI Ordering provider: Nicole Jc APRN History: . , blood in urine, flank pain . Comparison: None. Technique: Ultrasound bilateral kidneys. Findings: RIGHT KIDNEY: Measures 15x 7x 6.6 cm in length which is normal in size. No renal cysts. No renal mass or visualized echogenic stones. Otherwise, normal echotexture and contour. No hydronephrosis. Normal renal cortical thickness. LEFT KIDNEY: Measures 14.4x 7.2x 6.2 cm in length which is normal in size. No renal cysts. No renal m ass or visualized echogenic stones. Otherwise, normal echotexture and contour. No hydronephrosis. Nor mal renal cortical thickness. BLADDER: Not distended. Intrauterine is noted. IMPRESSION: Normal study. Intrauterine . Reviewed, dictated and finalized at location A.
--- OUTSIDE RECORDS SUMMARY | 2024-07-31 16:18 | XMS_ITS | Continuity of Care Document ---
Author Organization [facility] Address [address] [facility] [address] Phone Care Team Providers Care Melter Supervisor Electric Arc Furnace Name Role Phone Isidro Crawford MD Unavailable [...] Copied on Encounter OFFICE/OUTPA TIENT VISIT, EST [facility], [address] [place], [place], [id number], tel:[phone] [facility] anxiety (chief complaint) mood swing (chief complaint) Generalized anxiety disorderBipolar disorder, unspecifiedDepressi on [address] [facility] [place], [id number] , [place]. tel:[phone] Referring Provider: Isidro Crawford, [address], [place], [place], [id number]. tel:[phone] OFFICE/OUTPA TIENT VISIT, [facility], [address], [place], [place], [id number], [place] [phone] [facility] anxiety (chief complaint) panic attacks (chief complaint) Bipolar disorder, unspecifiedGenerali zed anxiety disorderDepression 0-[address]. [address], [place], [place], [address] , [place]. [phone] Referring Provider: Byron [address], [place], [place], [id number]. tel:[phone] OFFICE/OUTPA TIENT VISIT, [facility], [address], [place], [place], [address], [place] tel:[phone] [facility] anxiety (chief complaint) mood swing (chief complaint) Major depressive affective disorder, single episode, mild degreeGeneralized anxiety disorderBipolar disorder, unspecified [address], [place], [place], [address] , [place]. [phone] Referring Provider: Byron [address], [place], [place], [id number]. tel:[phone] OFFICE/OUTPA TIENT VISIT, [facility], [address], [place], [place], [address], [place] tel:[phone] [facility] anxiety (chief complaint) Major depressive affective disorder, single episode, mild degreeGeneralized anxiety disorder [address], [place], [place], [address] , [place]. [phone] Referring Provider: Byron [address], [place], [place], [id number]. tel:[phone] PREV VISIT, NEW, AGE 18-39 [facility], [address], [place], [place], [address], [place] tel:[phone] [facility] Physical (chief complaint) Routine Medical ExamGeneralized anxiety disorderMajor depressive affective disorder, single episode, mild degreeRoutine Medical Exam [address], [place], [place], [address] , [place]. tel:[phone] Family History Family Member Type Diagnosis Age At Onset Mother Problem (finding) Bipolar Disorder Mother Problem (finding) Anxiety Father Problem (finding) Coronary artery disease Brother Problem (finding) Alive and well Payers Payer name Insurance type Covered alliance party ID Authoriza tion(s) No Information Social [...] Mental Status Date Cognitive Assessment Orientation - [place] ed to time, place, person, situation.
--- OUTSIDE RECORDS SUMMARY | 2024-07-31 16:19 | XMS_ITS | Encounter Summary ---
Author Organization [facility] Address [address] [place] [address] Care Team Providers Care Integration Aide Name Role Phone Lidia Pope MD Unavailable Encounter Details Date Type Department Care Team (Late st Contact Info) Description 04/26/2013 [facility] Outpatient Visit CG DEFAULT [address] 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
--- OUTSIDE RECORDS SUMMARY | 2024-07-31 16:19 | XMS_ITS | Clinical Summary ---
Author Organization [facility] Address [address] [place] [address] Care Team Providers Care Oyster Sorter Name Role Phone No, Physician Primary Care Provider [phone] Allergies Active Allergy Reactions Criticality Noted Date [...] Date Smoking Tobacco: Every Day Cigarettes 0.5 10.4 Started: 2014 Tobacco Cessation:Ready to Q uit: [...] Depression Screening 1992 Hepatitis C Screening 1992 Varicella Vaccines (1 of 2 - 13+ 2-dose series) 2005 Regular Well Visit/Exam 18-64 2010 Pneumococcal vaccine <65 (1 of 2 - PCV) 08/16/2011 HPV Vaccines (3 - 3-dose series) 03/25/2016 12/30/19 16, 09/23/2015 DTaP/Tdap/Td Vaccine (6 - Td or Tdap) 02/17/2024 02/16/2014, 05/19/2006, 07/01/1994, Additional history exists Influenza Vaccine (Season Ended) 2024 Hepatitis B Screening Completed 07/01/1994 , 1992, 1992 Insurance Care Teams Oyster Sorter Relationship Specialty Start Date End Date No, Physician PCP - General 08/05/23
--- OUTSIDE RECORDS SUMMARY | 2024-07-31 16:19 | XMS_ITS | Clinical Summary ---
Author Organization [facility] Address [address] [place] [address] Care Team Providers Care Fire Investigator Name Role Phone Lidia Pope MD Unavailable Source Comments [facility],non-owned Affiliates and Associated Physician Practices is amultiple site organization consisting of ambulatory clinics and hospital sitesin [place], [place], [place] and [place]. This disclosure is being madepursuant to the Care Everywhere program and may not contain all information available regarding this patient. Last updated 17.[facility] Allergies Active Allergy Reactions Criticality Noted Date Comments Peanut-Derived 04/28/2010 Headache, tongue tingles. Medications * Be aware that medications may not be up to date on this document. Alwaysverify current medications with the patient. omeprazole (PRILOSEC) 20 MG capsuleIndicati ons:Gastro-esop hageal reflux Take 1 Cap by mouth daily before breakfast for 30 days. 30 Cap 0 3 Active Etonogestrel (IMPLANON SC) Active malathion (OVIDE) 0.5 % lotion Apply to dry hair until hair and scalp are wet. Air dry. Shampoo out in 8 hours. 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 Gender Identity Not on file Sexual Orientation Not on file Last Filed Vital Signs Vital Sign Reading Time Taken Comments Blood Pressure 102/52 02/16/2014 11:00 AM REVENUE INSPECTOR Pulse 95 02/16/2014 11:36 AM REVENUE INSPECTOR Temperature 36.8 C (98.2 F) 02/16/2014 11:36 AM REVENUE INSPECTOR Respiratory Rate 16 02/16/2014 11:36 AM REVENUE INSPECTOR Oxygen Saturation 100% 02/16/2014 11:36 AM REVENUE INSPECTOR Inhaled Oxygen Concentration - - Weight 69.9 kg (154 lb) 02/16/2014 1:32 PM REVENUE INSPECTOR Height 167.6 cm (5' 6) 02/16/2014 1:32 PM REVENUE INSPECTOR Body Mass Index 24.86 02/16/2014 1:32 PM REVENUE INSPECTOR Plan of Treatment Health Maintenance Due Date Last Done Comments HIV SCREENING 08/16/2007 HEPATITIS C SCREENING 08/11/2010 DTAP/TDAP/TD VACCINES (6 - Td or Tdap) 05/19/2016 05/19/2006, 11/02/1996, 09/15/1994, Additional history exists OB-ONE HOUR GLUCOSE 02/16/2019 OB-TDAP CURRENT 02/23/2019 05/19/2006 OB-RHOGAM INJECTION 03/02/2019 OB-GROUP B STREP SCREEN 04/20/2019 COVID-19 VACCINE ( season) 2023 DEPRESSION SCREENING 03/07/2024 INFLUENZA VACCINE (Season Ended) 2024 ZOSTER VACCINE (1 of 2) 2042 Respiratory Syncytial Virus (RSV) Vaccine Pt: or over 60 yrs (1 - 1-dose 75+ series) 08/16/2067 HEPATITIS B VACCINE Completed 07/01/1994, 1992, 1992 HIB VACCINE Completed 07/01/1994, 02/04, 1992 HPV VACCINE Aged Out No longer eligi ble based on patient's age to complete this topic MENINGOCOCCAL (Group B) VACCINE SHARED DECISION-MAKING Aged Out No longer eligible based on patient's age to complete this topic MENINGOCOCCAL GROUPS A/C/Y/W VACCINE Aged Out No longer eligible based on patient's age to complete this topic PNEUMOCOCCAL VACCINE Aged Out No long er eligible based on patient's age to complete this topic Insurance [employer] [facility] * Guarantor: EVI HERRON Account Type Relation to Patient Date of Phone Billing Address Personal/Family 1990 [address] [place] [address] Care Teams Fire Investigator Relationship Specialty Start Date End Date Lidia Pope MD PCP - Pediatrics 03/13/09
--- OUTSIDE RECORDS SUMMARY | 2024-07-31 16:19 | XMS_ITS | Data Portability ---
Author Organization [employer] , [facility] Address [address] [place] [address] Assessment No assessment recorded. Plan of Treatment Reminders Order Date Submit Date Provider Last Modified By Organization Details Last Modified Time Details Appointments OB RETURN EST 2024 10:15A M Altagracia Pedersen MD Not available Not available Not available LAB 15 2024 10:45A M [facility] Not available Not available Not available Lab hemoglob in A1c, QN, blood 2024 025 [employer], [address] [place], [address], 06/27/2024 14:09:22 abo group + rh type, blood 2024 025 [facility], [address] [facility], [place], [address], 06/29/2024 04:58:08 CBC w/ auto diff 2024 025 [employer], [address] [place], [address], 06/28/2024 11:52:23 CT + NG DNA, PCR, unspecif ied specimen 2024 025 [employer], [address] [place], [address], 06/27/2024 14:54:30 drug of abuse panel, urine 2024 025 [employer], [address] [place], [address], 06/27/2024 14:09:26 obstetri c screen + HIV, serum or blood 2024 025 [facility], [address] [place], [address], 06/27/2024 13:58:57 measles igg Ab, serum 2024 025 [facility], [address] [place], [address], 06/29/2024 04:58:08 culture, urine 2024 025 [facility], [address] [place], [address], 06/29/2024 04:58:09 varicell a-zoster igg Ab screen, serum 2024 025 [facility] [employer] [facility], [address] [place], [address], 06/29/2024 04:58:07 antibody screen, serum or plasma 2024 025 [facility], [address] [place], [address], 06/29/2024 04:58:08 bacteria l vaginosi s + vaginiti s panel, vaginal 2024 025 [facility], [address] [place] [address], [address], 06/27/2024 13:58:53 pregnanc y test, urine 2024 025 [email or web address] [facility], [address] [place], [address], 06/01/2024 13:52:58 Referral None recorded . Procedures None recorded . Surgeries None recorded . Imaging US, transvag inal 2024 025 [email or web address] Not available 06/01/2024 14:44:29 Medication Orders metoclop ramide 10 mg tablet 2024 025 [id number], [address], [place], [place], [id number], 06/26/2024 12:53:44 Patient TargetsNo targets recorded. Patient Instructions Encounter Date Encounter Id Patient Instructions Last Modified By Organization Details Last Modified Time 06/01/2024 [id number] [facility] OB Booklet [email or web address] Not available 06/01/2024 13:52:58 Reason for Referral None Reported. Results Created Date Observation Date Name Description Value Unit Range Abnormal Flag Note LastModifiedBy Organization Detail LastModifiedTime 06/28/1906/27/2024 VAGIN ITIS PANEL bacterial vaginosis BV neg negati ve normal Not Available [employer] [address] [place], [address], 06/27/2024 13:58:53 06/28/19 25 06/27/2024 VAGIN ITIS PANEL laura species C. spp POS negati ve abnormal Not Available [employer] [address] [place], [address], 06/27/2024 13:58:53 06/28/19 25 06/27/2024 VAGIN ITIS PANEL laura glabrata C. gla neg negati ve normal Not Available [facility] [address] [place], [address], 06/27/2024 13:58:53 06/28/19 25 06/27/2024 VAGIN ITIS PANEL trichomonas vaginalis CV/TV TRICH neg negati ve normal Not Available [employer] [address] [place], [address], 06/27/2024 13:58:53 06/02/19 25 06/01/2024 pregn cyndi test, urine HCG positi ve Not Available [facility] [address] [place], [address], 06/01/2024 12:32:12 06/27/19 25 06/27/2024 OB PANEL - STD BLOOD WORK hep BS Ag Non-Re active non-re active normal Not Available [address], [address], 06/27/2024 13:58:57 06/27/19 25 06/27/2024 OB PANEL - STD BLOOD WORK hep C Ab Non-Re active non-re active normal Not Available [address], [address], 06/27/2024 13:58:57 06/27/19 25 06/27/2024 OB PANEL - STD BLOOD WORK HIV 1/2 Ag/Ab Non-Re active non-re active normal Not Available [address], [address], 06/27/2024 13:58:57 06/27/19 25 06/27/2024 OB PANEL - STD BLOOD WORK syphilis Ab Non-Re active non-re active normal Not Available [address], [address], 06/27/2024 13:58:57 06/27/19 25 06/27/2024 OB PANEL - STD BLOOD WORK rubella Ab IgG 65.9 IU/mL normal INTER PRETI VE INFOR MATIO N: Rubel la Antib tracy, IgG. < 5.0 IU/mL ..... ..... . Not consi stent with immun ity 5.0 - 9.9 IU/mL ..... . Equiv ocal: Indet ermin ate-R epeat testi ng in 10-14 days may be helpf ul. > or = 10.0 IU/mL ... Consi stent with immun ity The prese nce of Rubel la IgG antib tracy sugge st respo nse to immun izati on or prior /curr ent expos ure to the Rubel la virus . Not Available [address], [address], 06/27/2024 13:58:57 06/27/19 25 06/27/2024 HEMOG LOBIN A1C hemoglobin A1C 5.0 % <5.7 normal The refer ence range for HbA1c is indic ated in the table below . Sugge sted Diagn osis =6.5% Consi stent with diabe nakia 5.7 6.4% Consi stent with incre ased risk for diabe nakia (pred iabet ic) <5.7% Consi stent with the absen ce of diabe nakia Not Available [facility] [address] [place], [address], 06/27/2024 14:09:22 06/27/19 25 06/27/2024 DRUG ABUSE PANEL 7 W/CON FIRM amphetamines Negati ve negati ve normal Not Available [facility] [address] [place], [address], 06/27/2024 14:09:26 06/27/19 25 06/27/2024 DRUG ABUSE PANEL 7 W/CON FIRM barbiturates Negati ve negati ve normal Not Available [facility] [address] [place], [address], 06/27/2024 14:09:26 06/27/19 25 06/27/2024 DRUG ABUSE PANEL 7 W/CON FIRM benzodiazepi taj Negati ve negati ve normal Not Available [facility] [address] [place], [address], 06/27/2024 14:09:26 06/27/19 25 06/27/2024 DRUG ABUSE PANEL 7 W/CON FIRM cocaine metabolites Negati ve negati ve normal Not Available [facility] [address] [place], [address], 06/27/2024 14:09:26 06/27/19 25 06/27/2024 DRUG ABUSE PANEL 7 W/CON FIRM cannabinoids Negati ve negati ve normal Not Available [facility] [address] [place], [address], 06/27/2024 14:09:26 06/27/19 25 06/27/2024 DRUG ABUSE PANEL 7 W/CON FIRM methadone Negati ve negati ve normal Not Available [facility] [address] [place], [address], 06/27/2024 14:09:26 06/27/19 25 06/27/2024 DRUG ABUSE PANEL 7 W/CON FIRM opiates Negati ve negati ve normal Not Available [facility] [address] [place] [address], [address], 06/27/2024 14:09:26 06/27/19 25 06/27/2024 DRUG ABUSE PANEL 7 W/CON FIRM creatinine, urine 127 mg/dL 20 - 275 normal Not Available [facility] [address] [place] [address], [address], 06/27/2024 14:09:26 06/27/19 25 06/27/2024 CT/NG chlamydia trachomatis CT neg negati ve normal This repor t is inten ded for us in clini patty monit oring and manag ement of patie nts. It is not inten ded for use in medic al-le gal appli catio n. Not Available [facility] [address] [place] [address], [address], 06/27/2024 14:54:30 06/27/19 25 06/27/2024 CT/NG neisseria gonorrhoeae GC neg negati ve normal This repor t is inten ded for us in clini patty monit oring and manag ement of patie nts. It is not inten ded for use in medic al-le gal appli catio n. Not Available [facility] [address] [place], [address], 06/27/2024 14:54:30 06/27/19 25 06/27/2024 CBC (INCL UDES DIFF/ PLT) WBC 10.6 thous and/u L 4.0 - 9.8 high Not Available [facility] [address] [place], [address], 06/28/2024 11:52:23 06/27/19 25 06/27/2024 CBC (INCL UDES DIFF/ PLT) RBC 3.9 wild on/uL 3.9 - 4.9 low Not Available [address], [address], 06/28/2024 11:52:23 06/27/19 25 06/27/2024 CBC (INCL UDES DIFF/ PLT) hemoglobin 12.3 g/dL 11.8 - 14.8 normal Not Available [address], [address], 06/28/2024 11:52:23 06/27/19 25 06/27/2024 CBC (INCL UDES DIFF/ PLT) hematocrit 36.7 % 35.5 - 44.0 normal Not Available [address], [address], 06/28/2024 11:52:23 06/27/19 25 06/27/2024 CBC (INCL UDES DIFF/ PLT) MCV 94.8 fL 82.0 - 99.0 normal Not Available [address], [address], 06/28/2024 11:52:23 06/27/19 25 06/27/2024 CBC (INCL UDES DIFF/ PLT) MCH 31.8 pg 27.2 - 32.6 normal Not Available [address], [address], 06/28/2024 11:52:23 06/27/19 25 06/27/2024 CBC (INCL UDES DIFF/ PLT) MCHC 33.5 g/dL 31.5 - 35.5 normal Not Available [address], [address], 06/28/2024 11:52:23 06/27/19 25 06/27/2024 CBC (INCL UDES DIFF/ PLT) RDW-CV 12.8 % 11.5 - 14.5 normal Not Available [facility] [address] [place] [address], [address], 06/28/2024 11:52:23 06/27/19 25 06/27/2024 CBC (INCL UDES DIFF/ PLT) platelet 221 thous and/u L 140 - 350 normal Not Available [address], [address], 06/28/2024 11:52:23 06/27/19 25 06/27/2024 CBC (INCL UDES DIFF/ PLT) MPV 10.4 fL 9.3 - 12.4 normal Not Available [address], [address], 06/28/2024 11:52:23 06/27/19 25 06/27/2024 CBC (INCL UDES DIFF/ PLT) absolute neutrophil 7.50 thous and/u L 1.90 - 7.00 high Not Available [address], [address], 06/28/2024 11:52:23 06/27/19 25 06/27/2024 CBC (INCL UDES DIFF/ PLT) absolute lymphocyte 2.36 thous and/u L 0.70 - 4.50 normal Not Available [address], [address], 06/28/2024 11:52:23 06/27/19 25 06/27/2024 CBC (INCL UDES DIFF/ PLT) absolute monocyte 0.61 thous and/u L 0.10 - 1.30 normal Not Available [address], [address], 06/28/2024 11:52:23 06/27/19 25 06/27/2024 CBC (INCL UDES DIFF/ PLT) absolute eosinophil 0.11 thous and/u L <0.70 normal Not Available [address], [address], 06/28/2024 11:52:23 06/27/19 25 06/27/2024 CBC (INCL UDES DIFF/ PLT) absolute basophil 0.03 thous and/u L <0.20 normal Not Available [address], [address], 06/28/2024 11:52:23 06/27/19 25 06/27/2024 CBC (INCL UDES DIFF/ PLT) absolute immature granulocyte 0.02 thous and/u L <0.03 normal Not Available [address], [address], 06/28/2024 11:52:23 06/27/19 25 06/29/2024 VARIC ROBERT ZOSTE R VIRUS ANTIB TRACY (IGG) varicella zoster virus antibody (IgG) 13.30 S/co normal Signa l to Cut-o ff S/CO Inter preta tion ----- ---- ----- ----- ----- ----- -- <1.00 Negat negrito - Antib tracy not detec rachelle > or = 1.00 Posit negrito - Antib tracy detec rachelle A posit negrito resul t indic ates that the patie nt has antib tracy to VZV but does not diffe renti ate betwe en an activ e or past infec tion. The clini patty diagn osis must be inter prete d in conju nctio n with the clini patty signs and sympt oms of the patie nt. This assay relia richie measu res immun ity due to previ ous infec tion but may not be sensi tive enoug h to detec t antib odies induc ed by vacci natio n. Thus, a negat negrito resul t in a vacci nated indiv idual does not neces saril y indic ate susce ptibi lity to VZV infec tion. A more sensi tive test for vacci natio n-ind uced immun ity is Varic robert Zoste r Virus Antib tracy Immun ity Scree n, ACIF. Not Available [facility] [address] [place], [address], 06/29/2024 04:58:07 06/27/19 25 06/29/2024 MEASL ES AB (IGG) , IMMUN E STATU S measles Ab (IgG), immune status >300.0 0 AU/mL normal AU/mL Inter preta tion ----- ----- ----- ---- <13.5 0 Not consi stent with immun ity 13.50 -16.4 9 Equiv ocal >16.4 9 Consi stent with immun ity The prese nce of measl es IgG sugge sts immun izati on or past or curre nt infec tion with measl es virus . For addit ional infor adolfo henning e refer to http: //[facility] cent[facility]ommy Pérez stDia gnost ics.c om/fa q/FAQ 162 (This link is being provi ded for infor ronen acosta/ educa mt l purpo ses only. ) Not Available [address] [place], [address], 06/29/2024 04:58:08 06/27/1906/29/2024 ANTIB TRACY SCREE N, RBC W/REF L ID, TITER AND AG antibody screen, RBC w/refl id, titer and Ag NO ANTIBO DIES DETECT ED normal Refer ence range No antib odies detec rachelle This assay is a scree ila test for the detec tion of red blood cell antib odies . The test is not to be used for pretr ansfu arina scree ila or for the medic al manag ement of an alloi mmuni zed pregn cyndi. Not Available [facility] [address], [address], 06/29/2024 04:58:08 06/27/1906/29/2024 ABO GROUP AND RH TYPE ABO group A Not Available [facility] [address], [address], 06/29/2024 04:58:08 06/27/1906/29/2024 ABO GROUP AND RH TYPE Rh type RH(D) POSITI VE For addit ional infor adolfo henning e refer to http: //[facility] centerio n.Que stDia gnost ics.c om/fa q/FAQ 111 (This link is being provi ded for infor ronen acosta/ torres amor l purpo ses only. ) Not Available [facility] [address] [place], [address], 06/29/2024 04:58:08 06/27/19 25 06/29/2024 CULTU RE, URINE , ROUTI NE culture, urine, routine SEE NOTE CULTU RE, URINE , ROUTI NE Micro Numbe r: [id number] Test Statu s: Final Speci men Sourc e: Urine Speci men Quali ty: Adequ ate Resul t: No Growt h Not Available [facility] [address] [address], [place], [address], 06/29/2024 04:58:09 06/28/19 25 06/27/2024 CHROM OSOME S 13, 18, 21 + SEX CHROM OSOME XIOMARA SIS chromosomes 13, 18, 21 + sex chromosome analysis Negati ve normal See PDF for compl ete resul ts. Overa ll Resul t: Negat negrito Negat negrito for all order ed condi tions Clini patty Notes : * The resid ual risks provi ded repre sent the remai ila chanc e that the pregn cyndi is affec rachelle with the indic ated chrom osome aneup loidy in view of a negat negrito resul t. * This is a scree ila test; there fore, false posit negrito and false negat negrito resul ts can occur . No irrev ersib le decis ion shoul d be made based on these findi ngs alone . Clini patty corre latio n with ultra sound findi ngs and histo ry is indic ated. If defin itive diagn osis is phillip ed, chori onic villu s sampl ing or amnio cente sis is necelina moon. fract ion: 19.0% - fract ion is one compo nent of the algor ithm used and is combi michel with other quali ty metri cs to deter mine the aneup loidy scree ila resul t. Not Available [facility] [address], [place], [address], 07/03/2024 20:45:33 06/02/19 25 06/01/2024 US, trans vagin al No observ ation record ed. [email or web address] [facility] [address], [place], [address], 06/03/2024 16:04:03 Result Notes None recorded. Problems Name Problem SNOMED Code Status Onset Date Resolution Date Notes Provider Name and Address Organization Details Recorded Time Uterine size for dates discrepa ncy Active 2020 Uterine size-christy e discrepa ncy, third trimeste r; Progress : Stable Added By: Sussy Taylor Add to Current Problems : YES ProblemS tatus: Current Not Available [facility] 2 20:09:05 Gestatio n period, 24 weeks [id number] Completed 202010/27/2020 24 weeks gestatio n of pregnanc y; Progress : Stable Added By: Amanda Martínez Add to Current Problems : NO ProblemS tatus: Resolve Not Available [facility] 2 20:09:05 Gestatio n period, 17 weeks 52225498 Completed 202007/24/2020 17 weeks gestatio n of pregnanc y; Progress : Stable Added By: Micheline Cloud Add to Current Problems : NO ProblemS tatus: Resolve Not Available [facility] 2 19:02:28 Gestatio n period, 21 weeks 35599044 Completed 202010/27/2020 21 weeks gestatio n of pregnanc y; Progress : Stable Added By: Sarai Burkett Add to Current Problems : NO ProblemS tatus: Resolve Not Available [facility] 2 20:09:04 Gestatio n period, 13 weeks 99133931 Completed 202007/24/2020 13 weeks gestatio n of pregnanc y; Progress : Stable Added By: Micheline Cloud Add to Current Problems : NO ProblemS tatus: Resolve Not Available [facility] 2 20:09:03 Gestatio n period, 30 weeks [id number] Completed 202010/27/2020 30 weeks gestatio n of pregnanc y; Progress : Stable Added By: Sussy Taylor Add to Current Problems : NO ProblemS tatus: Resolve Not Available [facility] 2 20:09:01 Large fetus 002148156 Active 2020 Maternal care for excessiv e growth, third trimeste r, not applicab le or unspecif ied; Progress : Stable Added By: Easton Chase Add to Current Problems : YES ProblemS tatus: Current Not Available [facility] 2 20:09:04 Pregnanc y, childbir th and puerperi um finding Completed 202007/24/2020 Encounte r for supervis ion of normal first pregnanc y, first trimeste r; Progress : Stable Added By: Micheline Cloud Add to Current Problems : NO ProblemS tatus: Resolve Not Available [facility] 2 19:02:55 Gestatio n period, 28 weeks [id number] Completed 202010/27/2020 28 weeks gestatio n of pregnanc y; Progress : Stable Added By: Cathi Braun Add to Current Problems : NO ProblemS tatus: Resolve Not Available [facility] 2 20:09:03 Blood in urine 32513123 Completed 202010/27/2020 Hematuri a, unspecif ied; Progress : Stable Added By: Sarai Burkett Add to Current Problems : NO ProblemS tatus: Resolve Not Available [facility] 2 20:09:01 Acute vaginiti s 73734378 Completed 202007/24/2020 Acute vaginiti s; Severity : Moderate Progress : Stable Added By: Micheline Cloud Add to Current Problems : NO ProblemS tatus: Resolve Not Available [facility] 1 03:37:54 Antenata l ultrasou nd finding 582265763 Completed 202007/24/2020 Encounte r for pregnanc y test, result unknown; Progress : Stable Added By: Tameka Jefferson Add to Current Problems : NO ProblemS tatus: Resolve Not Available [facility] 2 20:09:02 Gestatio n period, 20 weeks 75122936 Completed 202010/27/2020 20 weeks gestatio n of pregnanc y; Progress : Stable Added By: Marleny Hayes Add to Current Problems : NO ProblemS tatus: Resolve Not Available [facility] 2 20:09:02 Acute vulvitis 92108454 Completed 202010/27/2020 Acute vulvitis ; Progress : Stable Added By: Sarai Burkett Add to Current Problems : NO ProblemS tatus: Resolve Not Available [facility] 2 20:09:02 Vaginiti s in pregnanc y 819224586 Completed 202010/27/2020 Infectio n of other part of genital tract in pregnanc y, second trimeste r; Progress : Stable Added By: Micheline Cloud Add to Current Problems : NO ProblemS tatus: Resolve Not Available [facility] 2 20:09:01 Noninfla mmatory disorder of the vagina 97265324 Completed 202010/27/2020 Noninfla mmatory disorder of vagina, unspecif ied; Progress : Stable Added By: Sarai Burkett Add to Current Problems : NO ProblemS tatus: Resolve Not Available [facility] 2 20:09:05 Normal pregnanc y in multigra jhonny [id number] 4106 Active 2020 Encoun r for supervis ion of other normal [...] : YES ProblemS tatus: Current Not Available [facility] 2 20:09:03 Gestatio n period, 37 weeks 37959863 Active 2020 37 weeks gestatio n of pregnanc y; Progress : Stable Added By: Tameka Jefferson Add to Current Problems : YES ProblemS tatus: Current Not Available [facility] 2 20:09:04 Gestatio n period, 36 weeks 96933737 Completed 202011/19/2020 36 weeks gestatio n of pregnanc y; Progress : Stable Added By: Amanda Martínez Add to Current Problems : NO ProblemS tatus: Resolve Not Available [facility] 2 20:09:02 Gestatio n period, 34 weeks 07734012 Completed 202011/19/2020 34 weeks gestatio n of pregnanc y; Progress : Stable Added By: Tameka Jefferson Add to Current Problems : NO ProblemS tatus: Resolve Not Available [facility] 2 20:09:01 Gestatio n period, 38 weeks 87945203 Active 2020 38 weeks gestatio n of pregnanc y; Progress : Stable Added By: Micheline Cloud Add to Current Problems : YES ProblemS tatus: Current Not Available [facility] 2 20:09:00 Gestatio n period, 32 weeks [id number] Completed 202010/27/2020 32 weeks gestatio n of pregnanc y; Progress : Stable Added By: Micheline Cloud Add to Current Problems : NO ProblemS tatus: Resolve Not Available [facility] 2 19:02:28 Pain of breast 42971589 Active 2020 Mastodyn ia; Progress : Stable Added By: Liza Dillard Add to Current Problems : YES ProblemS tatus: Current Not Available [facility] 2 19:02:28 Acute vaginiti s 01162150 Active 2020 Acute vaginiti s; Progress : Stable Added By: Micheline Cloud Add to Current Problems : YES ProblemS tatus: Current Not Available [facility] 2 19:02:28 Antenata l screenin g for malforma tion Active 2020 Encounte r for antenata l screenin g for malforma tions; Progress : Stable Added By: Marleny Hayes Add to Current Problems : YES ProblemS tatus: Current Not Available [facility] 2 20:09:01 Depressi on screenin g Active 2020 Encounte r for screenin g for maternal depressi on; Progress : Stable Added By: Micheline Cloud Add to Current Problems : YES ProblemS tatus: Current Not Available [facility] 2 20:09:02 Gestatio n period, 40 weeks 79804014 Active 2020 40 weeks gestatio n of pregnanc y; Progress : Stable Added By: Micheline Cloud Add to Current Problems : YES ProblemS tatus: Current Not Available [facility] 2 20:09:[address] Concept Active 2020 Encounte r for follow-u p examinat ion after complete d treatmen t for conditio ns other than malignan t neoplasm ; Progress : Stable Added By: Amanda Martínez Add to Current Problems : YES ProblemS tatus: Current Not Available [facility] 2 20:09:03 Antenata l screenin g Completed [...] Start Date : 08/18/19 21 Not Available [facility] 2 20:09:04 Right lower quadrant pain 678223105 Active 2020 Right lower quadrant pain; Progress : Stable Added By: Micheline Colud Add to Current Problems : YES ProblemS tatus: Current Not Available [facility] 2 20:09:04 Mastitis associat ed with lactatio n 973072253 Active 2020 Nonpurul ent mastitis associat ed with the puerperi um; Progress : Stable Added By: Miriam Hernandez Add to Current Problems : YES ProblemS tatus: Current Not Available [facility] 2 20:09:05 Gestatio n period, 39 weeks 41519385 Active 2020 39 weeks gestatio n of pregnanc y; Progress : Stable Added By: Micheline Cloud Add to Current Problems : YES ProblemS tatus: Current Not Available [facility] 20:09:05 Pregnanc y 13951398 Active 2024 LATHA OCASIO CRYSTAL [address] [place] [address], [phone] , [facility] [employer] 5 23:50:43 Past pregnanc y history of gestatio nal diabetes mellitus 115632420 Active 2024 LATHA OCASIO CRYSTAL [address] [place] [address], [phone] , [facility] [employer] [facility] 5 23:51:09 Past pregnanc y history of section 796265843 Active 2024 x2, plan for RLTCS LATHA OCASIO CRYSTAL [address] [place] [address], [phone] , [facility] [employer] [facility] 5 23:57:50 Notes:Unspecified infection of urinary tract in , [...] Name and Address Organization Details Recorded Time 1 delivery completed [facility] [employer] 02/24/2021 12:45:28 0 Date of Last Pap Smear completed [employer] [facility] [employer] 02/23/2021 22:40:45 section completed [facility] [employer] 02/23/2021 22:40:29 Imaging Results None recorded. Procedure Notes None recorded. Medical Equipment None Reported. Allergies No known drug allergies Medications Name Sig Start Date Stop Date Status Note LastModified by Organization Details LastModified Time amoxicill in 500 mg capsule TAKE 1 CAPSULE BY MOUTH THREE TIMES DAILY 06/01 completed Not Available Not Available Not Available terconazo le 0.4 % vaginal cream INSERT 1 APPLICAT ORFUL VAGINALL Y DAILY AT BEDTIME FOR 7 DAYS 07/10 completed Not Available Not Available Not Available triazolam 0.25 mg tablet TAKE 1 TABLET BY MOUTH IN TH EVENING BEFORE BEDTIME. 2 TABLETS 1 HOUR PRIOR TO APPOINTM ENT. BRING 1 TABLET TO APPT. 06/01 completed Not Available Not Available Not Available nystatin 100,000 unit/gram topical ointment APPLY TO THE AFFECTED AREA BY TOPICAL ROUTE TWICE DAILY 06/01 completed Not Available Not Available Not Available fluconazo le 150 mg tablet TAKE 1 TABLET BY MOUTH ONCE. IF STILL HAVING SYMPTOMS AFTER 72 HOURS TAKE SECOND DOSE 06/01 completed Not Available Not Available Not Available hydrocodo ne 5 mg-acetam inophen 325 mg tablet TAKE 1 TABLET BY MOUTH EVERY 4 TO 6 HOURS NEEDED FOR 4 DAYS 06/01 completed Not Available Not Available Not Available metronida zole 0.75 % (37.5 mg/5 gram) vaginal gel INSERT 1 APPLICAT ORFUL VAGINALL Y EVERY DAY AT BEDTIME FOR 5 DAYS 06/01 completed Not Available Not Available Not Available metronida zole 500 mg tablet TAKE 1 TABLET BY MOUTH TWICE DAILY FOR 7 DAYS 06/01 completed Not Available Not Available Not Available triamcino lone acetonide 0.1 % topical cream APPLY TO THE AFFECTED AREA TWICE DAILY 06/01 completed Not Available Not Available Not Available [...] completed Not Available Not Available Not Available Kind[employer] BiosciencesTouch Ultra Test strips TEST FOUR TIMES DAILY active Not Available Not Available No t Available phenazopy ridine 100 mg tablet TAKE 1 TABLET BY MOUTH THREE TIMES DAILY NEEDED FOR URINARY PAIN 06/01 completed Not Available Not Available Not Available [...] on Not Available Not Available Not Available triamcino lone acetonide 0.1 % topical ointment APPLY THIN LAYER TOPICALL Y TO THE AFFECTED AREA TWICE DAILY 06/01 completed Not Available Not Available Not Available nystatin 100,000 unit/gram topical cream APPLY TOPICALL Y TO THE AFFECTED AREA TWICE DAILY IN THE MORNING AND IN THE EVENING FOR 7 DAYS 06/01 completed Not Available Not Available Not Available ibuprofen 600 mg tablet TAKE 1 TABLET BY MOUTH EVERY 6 HOURS NEEDED 06/01 completed Not Available Not Available Not Available methylpre dnisolone 4 mg tablets in a dose pack TAKE DIRECTED 06/01 completed Not Available Not Available Not Available metoclopr amide 10 mg tablet TAKE 1 TABLET BY MOUTH FOUR TIMES DAILY NEEDED FOR NAUSEA active Not Available Not Available No t Available cyclobenz aprine 5 mg tablet TAKE 1 TABLET BY MOUTH THREE TIMES DAILY NEEDED active Not Available Not Available No t Available nitrofura ntoin monohydra te/macroc rystals 100 mg capsule TAKE 1 CAPSULE BY MOUTH TWICE DAILY FOR 7 DAYS 06/01 completed Not Available Not Available Not Available Prena1 02/24 completed Prena1 Allow Substitu tion: False Refill Denied: No Refill DateOccu rred: 05/06/19 Edited by: Ileana Sahu) on 06/13/19 Stopped by: Ileana Sahu) on Not Available Not Available Not Available OneTouch Ultra2 Meter TEST FOUR TIMES DAILY active Not Available Not Available No t Available OneTouch Delica Plus Lancet 33 gauge TEST FOUR TIMES DAILY active Not Available Not Available No t Available Vitals Date Recorded Body height Body mass index (BMI) Body weight Systolic And Diastolic Provider Name and Address Organization Details Last Updated DateTime 06/01/2024 167.64 cm 28.3 kg/m2 91699.82 g 108/70 mm[Hg[facility] [employer] 06/01/2024 12:59:38 Date Recorded Body weight Body mass index (BMI) Body height Systolic And Diastolic Provider Name and Address Organization Details Last Updated DateTime 06/26/2024 85781.849 49 g 28.6 kg/m2 167.64 cm 110/74 mm[Hg] [facility] [employer] IV 06/26/2024 12:26:31 Date Recorded Body weight Body mass index (BMI) Body height Systolic And Diastolic Provider Name and Address Organization Details Last Updated DateTime 07/10/2024 32125.277 606 g 29.7 kg/m2 167.64 cm 114/60 mm[Hg] [facility] [employer] IV 07/10/2024 12:36:30 Date Recorded Body height Body mass index (BMI) Body weight Systolic And Diastolic Provider Name and Address Organization Details Last Updated DateTime 02/24/2021 167.64 cm 32 kg/m2 91787.29 g 118/80 mm[Hg] Liza Dillard [facility] [employer] [facility] IV 02/24/2021 12:42:52 Social History Question Answer Notes LastModified by [employer] Details LastModified Time Tobacco Smoking Status Former Smoker Aurea Shar jimenez, [facility] [employer] IV 06/01/2024 12:51:31 If You Are , What Was Your Level Of Alcohol Consumption Prior To ? None Information not available 06/01/2024 Are You Blind Or Do You Have Difficulty Seeing? No Information not available 06/01/2024 Are You Deaf Or Do You Have Serious Difficulty Hearing? No Information not available 06/01/2024 What Type Of Diet Are You Following? REGULAR Information not available 06/01/2024 When Did You Quit Smoking? 1-5yearssinc elastcigaret te Information not available 06/01/2024 What Is Your Relationship Status? Single Information not available 02/23/2021 Are You Sexually Active? Yes Information not available 02/23/2021 How Much Tobacco Do You Smoke? No Information not available 06/01/2024 Sex: Unknown Functional Status Question Answer Note LastModified by [employer] Details LastModified Time Do you use any illicit or recreational drugs? No Information not available 06/01/2024 Do you or have you ever used any other forms of tobacco or nicotine? No Information not available 06/01/2024 What is your level of alcohol consumption? None Information not available 06/01/2024 What is your exercise level? Occasional Information not available 06/01/2024 Mental Status None recorded. Family History Relationship [...] Polycystic Ovarian Syndrome N Cervical Cancer N Chlamydia N Hematuria N Stroke N Varicosities N Seasonal allergies N Crohn's Disease N Alzheimer's/Dementia N COPD/Emphysema N Endometriosis N HPV/Genital Warts N IBS (Irritable Bowel Syndrome) N History of Abnormal Pap N High Cholesterol N Liver Disease N Kidney Infection N Fibromyalgia N Ulcer N Kidney Disease N HIV N Gallbladder disease N Von Willebrand disease N Sickle Cell Disease/Trait N ADD/ADHD N Eating Disorder N Diabetes Mellitus (non-insulin dependent ) N Anemia N Ovarian Problems N Multiple Sclerosis N Gonorrhea N Frequent Urinary Tract infections N Osteopenia N Headaches/migraines N GERD (reflux) N Ovarian Cancer N Diabetes (insulin dependent) N Seizures/Epilepsy N Fibroids N Asthma N Heart Attack N Endometrial Cancer N Lupus N Rubella N Blood Clotting Disorder N Bipolar Disorder N Diabetes Mellitus (during ) N Ulcerative Colitis N Hepatitis N Heart Disease N Pulmonary Embolism N RPR N Chicken Pox N Osteoporosis N Gynecological History Statement/Question Response If Post Menopausal, Age at Menopause Date of Last Colonoscopy Date of LMP 04/06/2024 Most Recent Bone Density HPV Vaccine N Date of Last Pap Smear 02/22/2020 Most Recent Mammogram Current Control Method Age at Menarche 14 Obstetrics History GPAL:G 3 P 2 0 0 2 Type Value Full Term 2 Living 2 Total 3 Past Encounters Encounter ID Performer Location Encounter Start Date Encounter Closed Date Diagnosis/Indication Diagnosis SNOMED-CT Code Diagnosis ICD10 Code Diagnosis Note [id number] Amanda Martínez MD [facility] [address] [place] [address] 02/24/2021 12:38:27 02/26/2021 15:11:27 state 50127925 Z39.2 6wks post-op from rLTCS. Doing well, no complaints . Incision well-heale d, discussed no further activity restrictio ns at this time. FOB to get vasectomy for control. F/u PRN or 1 year for next AEX. [id number] ABBY NUNEZ [facility] [address] [place] [address] 06/01/2024 12:13:02 06/01/2024 14:44:29 test positive 912937329 Z32.01 First trimester teaching provided.- --Foods and activities to avoid---We ight gain recommenda tions based on BMI---Safe meds---Arsalan entation to practice-- -Delivery locations- --CHRISTIANO visit progressio n---Prenat al vitamins daily---To xoplasmosi s precaution s reviewed-- -[facility] Guide; What to expect on your maternity journey-- -S/S of SAB reviewed and when to seek care Patient was counseled on purpose, process and potential outcomes of NIPT and carrier screening. We discussed benefits, limitation s and accuracy of screenings . Alternativ es including, no testing, were reviewed. Patient was given the opportunit y to ask questions, which were addressed thoroughly . After confirming understand ing, patient provided verbal consent for NIPT and carrier screening. Plan for NIPT at next visit. --BMI: 28.3 RTC 4 weeks for 1st OB, Labs, Pap and Physical. [id number] ABBY NUNEZ [facility] [address] [place] [address] 06/26/2024 12:13:38 06/29/2024 13:58:30 screening 039943317 Z36.89 care status 24 3071027 Z34.81 POC-- NOB labs done today-- Accepts NIPT-- PAP pt declines- discussed importance of cervical cancer screening in . Is considerin g having done later in . -- Low dose aspirin recommende d-- Pre-Pregna ncy BMI: 28.3 Guide: Given and reviewed. Toxoplasmo sis precaution s reviewed. Reviewed office visit schedule during . Reviewed Quickening and normal FHTs. Vaginal bleeding or leaking of fluid--celia ght red bleeding and/or clots needs medical care immediatel y.Any temperatur e above 100.4 degrees.An y burning or painful urination. Increased swelling in your face, hands, or feet.Sever e stomach pains, cramps, nausea,or diarrhea. -- RTC 4 weeks Past pregn cyndi history of gestational diabetes mellitus 788584761 Z86.32 Declines early 1 hr gtt would like to check glucose, supplies sent Gestation period, 10 weeks 23679056 Z3A.10 Past pregn cyndi history of section 097529533 Z98.891 x3 plan for RLTCS Pruritus of vagina 20698 003 N89.8 Sureswab collected, will treat based upon results. Nausea 407405651 R11.0 Depression screening 171 889050 Z13.31 EPDS Score 9-Pt educated on normal scoring, and discussed depression precaution s and when to notify HCP/go to ER. [id number] ABBY NUNEZ [facility] [address] [place] [address] 07/10/2024 12:18:52 07/10/2024 14:59:40 Gestation period, 12 weeks 23098299 Z3A.12 Normal 1870565 2 Z34.81 SAB precaution s given Call our office or go to labor and delivery for the following: If you are less than 37 weeks and have move than 4 contractio ns an hour.Blurr ing of vision or spots before your eyes and/or HARuptured membranes or leakage of vaginal fluid -may be a steady trickle or large gush - may be clear, yellow, pink or green Vaginal bleeding-- bright red bleeding and/or clots needs medical care immediatel y.Any temperatur e above 100 degrees.An y burning or painful urination. Increased swelling in your face, hands, or feet.Stoma ch pains, cramps, nausea,or diarrhea. RTC in 4 weeks. Past pregn cyndi history of gestational diabetes mellitus 077312534 Z86.32 Declines early 1 hr gtt has been checking blood glucose fasting and 1 hr pp since last appt. All in range besides 1 level that was related to eating chick terri a. Can dc checking blood glucose and will resume checking at 28 wks. Health Concerns Section Related Observation LastModified by Organization Detai ls LastModified Time None Recorded Concern Status LastModified by Organization Details LastModified Time None Recorded Advance Directives Directive None Recorded Payers Insurance Date Sequence Insurance Name Policy Number Policy Hilton Covered Member ID Hilton Member ID Guarantor Name 07/07/2024 1 [facility] ON OR AFTER 09/04/20 (MEDICAID REPLACEMENT - HMO) Alphonse Herron [id number] Alphonse Herron Notes Date Note Type Note Provider Name and Address Organization Details Recorded Time 02/24/2021 text/html VisitReported bypatient.Notes:Alphonse is here for 6wkk pp visit. S/p [...] vasectomy for pp control. Amanda Martínez MD [facility], [place], [address], [employer] IV 03/02/2021 14:01:41 06/01/2024 text/html Confir mation VisitReported bypatient.obstetrics and gynecologyLMP: (04-06-24); date positive test: (06-01-24); no bleeding between periods; 3; para 2 Pt presents today for a confirmation of visit. has not been previously confirmed at another healthcare facility. Pt voiced that she is happy about this . TVUS today showed:IUP with Cardiac Activity.BAILEY based on this US. BAILEY: 01/17/25Gestational Age: 7w 1dFHT:148 OB History: O7Uhxtbrio Section x2GDM with previous Denies Significant Medical History ABBY NUNEZ [address] [facility], [place], [address], [employer] IV 06/01/2024 13:53:46 06/26/2024 text/html [facility] OB Return VisitReported bypatient. symptoms: movement normal; no movement (consistent with gestational age); normal vaginal discharge/no ROM; no bleeding; pelvic pressure; no contractions/mild cramping only Gastrointestinal:no gastrointestinal symptoms Cardiovascular:no cardiovascular symptoms Musculoskeletal:no joint pain Neurologic:no headache; no visual changes Breast:plans to breast feed Social/psychiatric issues:no reported concerns with support system; no anxiety; no symptoms of depression Pt comes in today for a New/First OB visit.Gestation:10 w 5dEDD: 01/17/2025 by US - - Previous OB History:[id number] Section x2GDM with prior - does not want to do early 1 hr would rather check blood glucose -- History of Genital HSV: denies - - PMH: No PMH - - Medications: Taking daily PNV, not taking any other medications --Pap History: last pap in 2019 due for pap - - Pre- BMI: 28.3 She denies any complaints of the presence of vaginal bleed, leaking fluid, abdominal cramps, nausea, vomiting, headache or visual disturbances. ABBY NUNEZ [address] [place], [address], [employer] IV 06/28/2024 18:38:49 07/10/2024 text/html [facility] OB Return VisitReported bypatient. symptoms: movement normal; no movement (consistent with gestational age); normal vaginal discharge/no ROM; no bleeding; pelvic pressure; no contractions/mild cramping only Gastrointestinal:no gastrointestinal symptoms Cardiovascular:no cardiovascular symptoms Musculoskeletal:no joint pain Neurologic:no headache; no visual changes Breast:plans to breast feed Social/psychiatric issues:no reported concerns with support system; no anxiety; no symptoms of depression Patient is here today for a routine OB visit. She is currently at 6 7 8 9 10 11 12 13 14 15 16 17 18 19 20 21 22 23 24 25 26 27 28 2 9 30 31 32 33 34 35 36 37 38 39 40 41 12.5 weeks gestation. vitamins: yes She has not felt movement.She denies any complaints of the presence of vaginal bleed, leaking fluid, abdominal cramps, nausea, vomiting, headache or visual disturbances ABBY NUNEZ [address] [facility], [place], [address], [employer] IV 07/10/2024 14:31:03 OBGyn Episode Ob Episode Information Episode Created Date Number of Fetuses Patient Bloodtype Patient rh Status Prepregnancy Weight lbs Domestic Partner Domestic Partner Phone Father Name Power Manager Status 02/25/20 21 1 CLOSED Fetus Data First Name Last Name Admitted to NICU Weight (g) Sex Living Outcome Pediatric Complications Fetus ID Race Codes Race Delivery Type 4082.32 8 M Full Term [id number] Repeat Bailey Calculation Initial Bailey Date Initial Exam Date Initial Exam Provider Initial Ultrasound Date Last Menstrual Period Date Ultra Sound Weeks Gestation 0 Eighteen To Twenty Week Bailey Update Ultra Sound Date Fundal Height At Umbil Quickening Date Ultra Sound Latest Weeks Gestation Final Bailey Confirmed By Final Bailey Confirmed Date Final Bailey Date Ultra Sound Latest Days Gestation 0 [...] Domestic Partner Domestic Partner Phone Father Name Power Manager Status 02/24/20 21 1 CLOSED Fetus Data First Name Last Name Admitted to NICU Weight (g) Sex Living Outcome Pediatric Complications Fetus ID Race Codes Race Delivery Type 3572.03 7 M Full Term [id number] Primary Bailey Calculation Initial Bailey Date Initial Exam Date Initial Exam Provider Initial Ultrasound Date Last Menstrual Period Date Ultra Sound Weeks Gestation 0 Eighteen To Twenty Week Bailey Update Ultra Sound Date Fundal Height At Umbil Quickening Date Ultra Sound Latest Weeks Gestation Final Bailey Confirmed By Final Bailey Confirmed Date Final Bailey Date Ultra Sound Latest Days Gestation 0 [...] Domestic Partner Domestic Partner Phone Father Name Power Manager Status 06/26/19 25 1 A Positive OPEN Fetus Data First Name Last Name Admitted to NICU Weight (g) Sex Living Outcome Pediatric Complications Fetus ID Race Codes Race Delivery Type [id number] Problems Problem Notes Problem Name Start Date End Date Resolution Snomed Code Not e Past history of section 06/25/2024 [id number] x2, plan for RLTCS Past history of gestational diabetes mellitus 06/25/2024 [id number] Bailey Calculation Initial Bailey Date Initial Exam Date Initial Exam Provider Initial Ultrasound Date Last Menstrual Period Date Ultra Sound Weeks Gestation 06/25/2024 0 Eighteen To Twenty Week Bailey Update Ultra Sound Date Fundal Height At Umbil Quickening Date Ultra Sound Latest Weeks Gestation Final Bailey Confirmed By Final Bailey Confirmed Date Final Bailey Date Ultra Sound Latest Days Gestation 0 [email or web address] 06/26/2024 01/18/20 25 0 Pre- Flowsheet Flowsheet Date 06/26/2024 Estrada Score Blood Edema Fundus Height Fundus Units Glucose Ketones Leukocytes Nitrite Labor Signs Protein Cervic Dilation Cervic Effacement Cervic Station none none none neg Type Weight in lbs Pre/Post Dialysis Refused With clothes 177.281568303686 BP Diastolic BP Location Tested BP Systolic BP Type 74 110 sitting Fetus Heart Rate Present A 163 Fetus Movement A No Comments No ob concernsLTCS x2 plan f or RLTCSNOB and NIPT, declines papGDM with prior preg- declines early 1 hr testing supplies sent in to check glucoseRx for Reglan for nauseaVaginal itching- sureswab EPDS 9RTC in 2 weeks Flowsheet Date 07/10/2024 Estrada Score Blood Edema Fundus Height Fundus Units Glucose Ketones Leukocytes Nitrite Labor Signs Protein Cervic Dilation Cervic Effacement Cervic Station none none none neg Type Weight in lbs Pre/Post Dialysis Refused With clothes 183.624380564996 BP Diastolic BP Location Tested BP Systolic BP Type 60 114 sitting Fetus Heart Rate Present A 156 Fetus Movement A No Comments No ob concerns- blood sugar logs reviewed only 1 elevated pp related to diet. Will resume checking at 28 wks.RTC in 4 weeks, plan for MSAFP at next visit. Menstrual History Last Menstrual Date Menses Monthly On Bcp Conception Prior Menses Frequency Hcg Plus Date Menarche Onset Age Delivery Information Delivery Date Delivery Type Labor Anesthesia Weeks Gestation Incision Type Labor Labor Length Hrs Delivered By Post Complications Tubal Sterilization Discharge Date Comments Discharge Information Feeding Method Contraceptive Method Maternal HG B and HCT Levels
--- OUTSIDE RECORDS SUMMARY | 2024-07-31 16:19 | XMS_ITS | Data Portability ---
Author Organization [facility], Jamul Address [address] [place] [address] [place] [address] Assessment No assessment recorded. Plan of Treatment Reminders Order Date Submit Date Provider Last Modified By Organization Details Last Modified Time Details Appointments None recorded. Lab unlisted lab - [facility], ELLI 2024 025 [facility] (Lab), [address], [place], [address], 5 07:00:03 culture, urine 2024 025 [facility] (Lab), [address], [place], [address], 5 22:08:22 urinalysis , dipstick [email or web address], [address], [address], [place], [address], 5 15:39:50 beta-HCG, quantitati ve, serum or plasma 2024 025 [facility] (Lab), [address], [place], [address], 5 19:10:41 test, urine 2024 025 adan Jamul, [address], [address], [place], [address], 5 16:45:07 culture, urine 2023 024 [facility] (Lab), [address] [facility], [place], [address], 4 07:10:06 urinalysis , dipstick 2023 024 [email or web address] Jamul[address], [address], [place], [address], 4 19:55:35 unlisted lab - [facility], ELLI 2023 024 [facility] (Lab), [address] [facility], [place], [address], 4 15:42:27 urinalysis , dipstick 2023 024 [email or web address] Jamul[address], [address], [place], [address], 4 15:05:27 unlisted lab - [facility], ELLI 2023 024 [facility] (Lab), [address] [facility] [facility], [place], [address], 4 16:13:25 Referral None recorded. Procedures None recorded. Surgeries None recorded. Imaging None recorded. Medication Orders Miconazole -7 2 % vaginal cream 2024 025 [id number], [address], [place], [place], [id number], 5 15:33:38 Macrobid 100 mg capsule 2023 024 [id number], [address], [place], [place], [id number], 4 12:43:44 Diflucan 150 mg tablet 2023 024 [email or web address] [facility] #[id number], [address] , [place], [place], [id number], 15:08:26 Patient TargetsNo targets recorded. Patient InstructionsNo instructions recorded. Reason for Referral None Reported. Results Created Date Observation Date Name Description Value Unit Range Abnormal Flag Note LastModifiedBy Organization Detail LastModifiedTime 01/03/2001/03/2024 [facility], ELLI bacterial vaginosis (bv), tma Negati ve negati ve Not Available [facility] (Lab) [address] [place], [address], 01/04/2024 16:13:25 01/03/20 24 01/03/2024 [facility], ELLI laura species, tma Negati ve negati ve Not Available [facility] (Lab) [address] [place], [address], 01/04/2024 16:13:25 01/03/20 24 01/03/2024 [facility] SWAB [facility], ELLI laura glabrata, tma Negati ve negati ve Not Available [facility] (Lab) [address] [place], [address], 01/04/2024 16:13:25 01/03/20 24 01/03/2024 [facility]AB [facility], ELLI trichomonas vaginalis, tma Negati ve negati ve Not Available [facility] (Lab) [address] [place], [address], 01/04/2024 16:13:25 01/03/20 24 01/03/2024 [facility] SWAB [facility], ELLI chlamydia trachomatis, PCR Negati ve negati ve Not Available [facility] (Lab) [address] [place], [address], 01/04/2024 16:13:25 01/03/20 24 01/03/2024 WOMEN 'S [...] ded in this panel . Not Available [facility] (Lab) [address] [facility] [facility], [place], [address], 01/04/2024 16:13:25 01/27/20 24 01/27/2024 [facility] ELL[facility] bacterial vaginosis (bv), tma Negati ve negati ve Not Available [facility] (Lab) [address] [place], [address], 01/28/2024 15:42:27 01/27/20 24 01/27/2024 [facility] ELLI laura species, tma Negati ve negati ve Not Available [facility] (Lab) [address] [place], [address], 01/28/2024 15:42:27 01/27/20 24 01/27/2024 [facility] ELLI laura glabrata, tma Negati ve negati ve Not Available [facility] (Lab) [address] [place], [address], 01/28/2024 15:42:27 01/27/20 24 01/27/2024 [facility]AB [facility], ELLI trichomonas vaginalis, tma Negati ve negati ve Not Available [facility] (Lab) [address] [place], [address], 01/28/2024 15:42:27 01/27/20 24 01/27/2024 [facility] SWAB [facility], ELLI chlamydia trachomatis, PCR Negati ve negati ve Not Available [facility] (Lab) [address] [facility], [place], [address], 01/28/2024 15:42:27 01/27/20 24 01/27/2024 WOMEN 'S [...] ded in this panel . Not Available [facility] (Lab) [address] [place], [address], 01/28/2024 15:42:27 01/27/20 24 01/27/2024 urina lysis , dipst ick Leukocytes neg Not Available Danny natalie [address], [place], [address], 01/27/2024 15:04:27 01/27/20 24 01/27/2024 urina lysis , dipst ick Nitrite neg Not Available Jamul [address], [place], [address], 01/27/2024 15:04:27 01/27/20 24 01/27/2024 urina lysis , dipst ick Urobilinogen neg Not Available [facility] srikanth [address], [place], [address], 01/27/2024 15:04:27 01/27/20 24 01/27/2024 urina lysis , dipst ick Protein trace Not Available Jamul [address], [place], [address], 01/27/2024 15:04:27 01/27/20 24 01/27/2024 urina lysis , dipst ick pH 6 Not Available Jamul [address], [place], [address], 01/27/2024 15:04:27 01/27/20 24 01/27/2024 urina lysis , dipst ick Blood + Not Available Jamul [address], [place], [address], 01/27/2024 15:04:27 01/27/20 24 01/27/2024 urina lysis , dipst ick Specific [place] 1.010 Not Available [facility] [address], [place], [address], 01/27/2024 15:04:27 01/27/20 24 01/27/2024 urina lysis , dipst ick Ketone neg Not Available Jamul [address], [place], [address], 01/27/2024 15:04:27 01/27/20 24 01/27/2024 urina lysis , dipst ick Bilirubin NEG Not Available [facility] [address], [place], [address], 01/27/2024 15:04:27 01/27/20 24 01/27/2024 urina lysis , dipst ick Glucose neg Not Available Jamul [address], [place], [address], 01/27/2024 15:04:27 01/27/20 24 01/27/2024 urina lysis , dipst ick Appearance cloudy Not Available [facility] estrada [address], [place], [address], 01/27/2024 15:04:27 01/27/20 24 01/27/2024 urina lysis , dipst ick Color yellow Not Available Jamul [address], [place], [address], 01/27/2024 15:04:27 02/08/20 24 02/08/2024 CULTU RE: URINE result report SEE RESULT S BELOW Test: Cultu re: Urine Speci men Sourc e: Urine - Clean Catch Speci men Type: Urine Speci men Date: 2023 0937 Resul t Date: 2023 0604 Resul t Statu s: Final resul t Abnor mal: No Resul ting Lab: [facility] [address] [facility] [address] Tel: CULTU RE ----- ----- ----- --- No growt h in 1 day (dete ction level of 10,00 0 colon ies / ml.) Not Available [facility] (Lab) [address] [facility], [place], [address], 02/10/2024 07:10:05 03/02/20 24 03/02/2024 [facility]ALT H SWAB PLUS, ELLI bacterial vaginosis (bv), tma Negati ve negati ve Not Available [facility] (Lab) [address] [place], [address], 03/10/2024 08:13:55 03/02/20 24 03/02/2024 [facility] ELLI laura species, tma Positi ve negati ve abnormal Not Available [facility] (Lab) [address] [place], [address], 03/10/2024 08:13:55 03/02/20 24 03/02/2024 [facility], ELLI laura glabrata, tma Negati ve negati ve Not Available [facility] (Lab) [address] [place], [address], 03/10/2024 08:13:55 03/02/20 24 03/02/2024 [facility], ELLI trichomonas vaginalis, tma Negati ve negati ve Not Available [facility] (Lab) [address] [place], [address], 03/10/2024 08:13:55 03/02/20 24 03/02/2024 [facility], ELLI chlamydia trachomatis, PCR Negati ve negati ve Not Available [facility] (Lab) [address] [place], [address], 03/10/2024 08:13:55 03/02/20 24 03/02/2024 WOMEN 'S [...] ded in this panel . Not Available [facility] (Lab) [address] [facility], [place], [address], 03/10/2024 08:13:55 03/02/20 24 03/02/2024 CULTU RE: HSV/ VZV hsv culture/type Commen t Negat negrito No Herpe s simpl ex virus isola rachelle. Not Available [facility] (Lab) [address] [facility], [place], [address], 03/10/2024 08:13:56 03/02/20 24 03/02/2024 CULTU RE: HSV/ VZV viral culture, rapid,varice lla Commen t Negat negrito No Varic lenore zoste r virus detec rachelle by rapid viral cultu re. Not Available [facility] (Lab) [address] [place], [address], 03/10/2024 08:13:56 05/01/19 25 05/01/2024 BHCG, QUANT ITATI VE B-HCG 6.3 mIU/m L 0.0-4. 9 high This assay was perfo rmed using [employer] n reage nts and test kits. Value s obtai michel with other assay metho ds or kits canno t be used inter pineda eably . Refer ence Range s: Non-p regna nt, preme nopau carlo women : 0.0-4 .9 mIU/m L Postm enopa usal women : 0.0-7 .0 mIU/m L Rashmi l Pregn cyndi: Jayya mt l Age bHCG Conc. - mIU/m L 3 Weeks 5.8 - 71.7 4 Weeks 9.5 - 750 5 Weeks 217-7 138 6 Weeks 158 - 31,79 5 7 Weeks 3,697 - 162,5 63 8 Weeks 32,06 5 - 149,5 71 9 Weeks 63,80 3 - 151,4 10 10 Weeks 46,50 9 - 186,9 77 12 Weeks 27,83 2 - 210,6 12 14 Weeks 13,95 0 - 62,53 0 15 Weeks 12,03 9 - 70,97 1 16 Weeks 9,040 - 56,45 1 17 Weeks 8,175 - 55,86 8 18 Weeks 8,099 - 58,17 6 Not Available [facility] (Lab) [address] [facility], [place], [address], 05/02/2024 19:10:41 05/01/19 25 05/01/2024 CULTU RE: URINE result report SEE RESULT S BELOW Test: Cultu re: Urine Speci men Sourc e: Urine - Clean Catch Speci men Type: Urine Speci men Date: 2024 1435 Resul t Date: 2024 Resul t Statu s: Final resul t Abnor mal: No Resul ting Lab: [facility] [address] [facility] [address] Tel: CULTU RE ----- ----- ----- --- No growt h in 1 day (dete ction level of 10,00 0 colon ies / ml.) Not Available [facility] (Lab) [address] [facility] [facility], [place], [address], 05/02/2024 22:08:22 05/01/19 25 05/01/2024 WOMEN 'S HEALT H SWAB, ELLI bacterial vaginosis (bv), tma Negati ve negati ve This test detec ts ribos omal RNA from bacte girish assoc iated with bacte rial vagin osis (BV), inclu ding Lacto bacil hugo (L. gasse ri, L. crisp atus and L. jense joanna), Gardn erell a vagin ray, and Atopo bium vagin ae by Trans cript ion-M ediat ed Ampli ficat ion (TMA) . A angusl e quali tativ e onelia t is repor rachelle based on instr ument softw are to deter mine BV posit negrito or negat negrito statu s. Not Available [facility] (Lab) [address] [place], [address], 05/04/2024 07:00:03 05/01/1905/01/2024 WOMEN 'S HEALT H SWAB, ELLI laura species, tma Positi ve negati ve abnormal Not Available [facility] (Lab) [address] [facility] [facility], [place], [address], 05/04/2024 07:00:03 05/01/1905/01/2024 WOMEN 'S HEALT H SWAB, ELLI laura glabrata, tma Negati ve negati ve Not Available [facility] (Lab) [address] [facility] [facility], [place], [address], 05/04/2024 07:00:03 05/01/1905/01/2024 WOMEN 'S HEALT H SWAB, ELLI trichomonas vaginalis, tma Negati ve negati ve This assay tests for and diffe renti ates betwe en Reva da glabr humaira, the Reva da speci es group (C. albic ans, C. tropi calis , C. parap donaldo is, C. dubli priscila is), and Trich omona s vagin ray by Trans cript ion-M ediat ed Ampli ficat ion (TMA) . Not Available [facility] (Lab) [address] [place], [address], 05/04/2024 07:00:03 05/01/1905/01/2024 pregn cyndi test, urine HCG negati ve Not Available [place] [address], [place], [address], 05/01/2024 16:45:00 05/01/1905/01/2024 urina lysis , dipst ick Leukocytes ++ Not Available [facility] natalie [address], [place], [address], 05/01/2024 15:38:49 05/01/1905/01/2024 urina lysis , dipst ick Nitrite - Not Available Jamul [address], [place], [address], 05/01/2024 15:38:49 05/01/19 25 05/01/2024 urina lysis , dipst ick Protein + Not Available Jamul [address], [place], [address], 05/01/2024 15:38:49 05/01/19 25 05/01/2024 urina lysis , dipst ick pH 6 Not Available Jamul [address], [place], [address], 05/01/2024 15:38:49 05/01/1905/01/2024 urina lysis , dipst ick Specific [place] 1.015 Not Available [facility] [address], [place], [address], 05/01/2024 15:38:49 05/01/1905/01/2024 urina lysis , dipst ick Appearance clear Not Available [facility] Brunswickyared estrada [address], [place], [address], 05/01/2024 15:38:49 05/01/19 25 05/01/2024 urina lysis , dipst ick Color clear Not Available Jamul [address], [place], [address], 05/01/2024 15:38:49 05/03/19 25 05/03/2024 BHCG, QUANT ITATI VE B-HCG 27.3 mIU/m L 0.0-4. 9 high This assay was perfo rmed using [employer] reage nts and test kits. Value s obtai michel with other assay metho ds or kits canno t be used inter pineda eably . Refer ence Range s: Non-p regna nt, preme nopau carlo women : 0.0-4 .9 mIU/m L Postm enopa usal women : 0.0-7 .0 mIU/m L Rashmi l Pregn cyndi: Gesta mt l Age bHCG Conc. - mIU/m L 3 Weeks 5.8 - 71.7 4 Weeks 9.5 - 750 5 Weeks 217-7 138 6 Weeks 158 - 31,79 5 7 Weeks 3,697 - 162,5 63 8 Weeks 32,06 5 - 149,5 71 9 Weeks 63,80 3 - 151,4 10 10 Weeks 46,50 9 - 186,9 77 12 Weeks 27,83 2 - 210,6 12 14 Weeks 13,95 0 - 62,53 0 15 Weeks 12,03 9 - 70,97 1 16 Weeks 9,040 - 56,45 1 17 Weeks 8,175 - 55,86 8 18 Weeks 8,099 - 58,17 6 Not Available [facility] (Lab) [address], [place], [address], 05/04/2024 08:55:46 05/03/19 25 05/03/2024 TYPE/ RH/SC REEN ABO/Rh type A POS Not Available [facility] (Lab) [address], [place], [address], 05/04/2024 08:55:47 05/03/19 25 05/03/2024 TYPE/ RH/SC REEN antibody screen NEG Not Available [facility] (Lab) [address], [place], [address], 05/04/2024 08:55:47 05/03/19 25 05/03/2024 TYPE/ RH/SC REEN exp date 2024 23:59 Not Available [facility] (Lab) [address], [place], [address], 05/04/2024 08:55:47 Result Notes None recorded. Problems Name Problem SNOMED Code Status Onset Date Resolution Date Notes Provider Name and Address Organization Details Recorded Time Gestatio nal diabetes mellitus 32423718 Completed 201904/02/2021 Gestatio nal diabetes mellitus in pregnanc y, diet controll ed;Recor ded Elsewher e: No Locat ion: Susan hope [facility] S ource: EHR Grounds Supervisor bouchra: N Practi ce ID: [id number] Zeb lable Time: 01:00:00 PM Carli jimenez [facility] 2 12:01:23 Acute vaginiti s [id number] Completed 201904/02/2021 Vaginiti s;Record ed Elsewher e: No Locat ion: Susan hope [facility] S ource: EHR Grounds Supervisor bouchra: N Practi ce ID: [id number] Zeb lable Time: 10:30:00 AM Carli jimenez, [facility] 2 12:01:41 Pregnanc y, childbir th and puerperi um finding Completed 201904/02/2021 Encntr for suprvsn of normal first preg, third trimeste r;Record ed Elsewher e: No Locat ion: Susan hope [facility] S ource: EHR Grounds Supervisor bouchra: N Practi ce ID: 0001 Zeb lable Time: 02:00:00 PM Carli jimenez [facility] 2 12:01:55 Gestatio n period, 33 weeks [id number] Completed 201904/02/2021 33 weeks gestatio n of pregnanc y;Record ed Elsewher e: No Locat ion: Susan [facility] S ource: EHR Grounds Supervisor bouchra: N Practi ce ID: 0001 Zeb lable Time: 01:45:00 PM Carli jimenez [facility] 2 12:02:13 Gestatio n period, 36 weeks [id number] Completed 201904/02/2021 36 weeks gestatio n of pregnanc y;Record ed Elsewher e: No Locat ion: Susan hope [facility] S ource: EHR Grounds Supervisor bouchra: N Sawyerti ce ID: [id number] Zeb lable Time: 01:45:00 PM Carli jimenez [facility] 2 12:02:03 Insertio n of intraute rine contrace ptive device Completed 201704/02/2021 Encounte r for insertio n of intraute rine contrace ptive device;R ecorded Elsewher e: No Locat ion: [facility] herminia [facility] S ource: EHR Grounds Supervisor bouchra: N Sawyerti ce ID: [id number] Zeb lable Time: 11:30:00 AM Carli Rice [facility] 2 12:02:06 Gestatio n period, 35 weeks [id number] Completed 201904/02/2021 35 weeks gestatio n of pregnanc y;Record ed Elsewher e: No [facility]at [facility] S ource: EHR Grounds Supervisor bouchra: N Sawyerti ce ID: [id number] Zeb lable Time: 01:00:00 PM Carli Rice [facility], [facility] 2 12:02:14 Gestatio n period, 32 weeks [id number] Completed 201904/02/2021 32 weeks gestatio n of pregnanc y;Record ed Elsewher e: No Locat ion: [facility] S ource: EHR Grounds Supervisor bouchra: N Practi ce ID: [id number] Zeb lable Time: 10:15:00 AM Carli Rice [facility], [facility] 2 12:02:12 Gestatio n period, 34 weeks [id number] Completed 201904/02/2021 34 weeks gestatio n of pregnanc y;Record ed Elsewher e: No Locat ion: [facility] S ource: EHR Grounds Supervisor bouchra: N Practi ce ID: [id number] Zeb lable Time: 01:00:00 PM Carli jimenez [facility] 2 12:01:27 Surveill ance of contrace ption Completed 201704/02/2021 Encounte r for surveill ance of contrace ptives, unspecif ied;Larry rded Elsewher e: No Locat ion: [facility] S ource: EHR Grounds Supervisor bouchra: N Practi ce ID: [id number] Zeb lable Time: 11:00:00 AM Carli jimenez, [facility] 2 12:02:[address] Concept Completed 201904/02/2021 Matern care for abnlt fetl hrt rate or rhym, 3rd tri, unsp;Rec orded Elsewher e: No Locat ion: [facility] S ource: EHR Grounds Supervisor bouchra: N Practi ce ID: 0001 Zeb lable Time: 01:45:00 PM Carli jimenez [facility] 2 12:01:33 Gestatio n period, 31 weeks [id number] Completed 201904/02/2021 31 weeks gestatio n of pregnanc y;Record ed Elsewher e: No Locat ion: [facility] S ource: EHR Grounds Supervisor bouchra: N Practi ce ID: [id number] Zeb lable Time: 11:00:00 AM Carli jimenez [facility] 2 12:02:05 Pregnanc y, childbir th and puerperi um finding Completed 201904/02/2021 Encounte r for supervis ion of normal 1st pregnanc y;Record ed Elsewher e: No Locat ion: [facility] S ource: EHR Grounds Supervisor bouchra: N Practi ce ID: [id number] Zeb lable Time: 10:15:00 AM Carli jimenez [facility] 2 12:01:54 Gestatio n period, 23 weeks [id number] Completed 201804/02/2021 23 weeks gestatio n of pregnanc y;Record ed Elsewher e: No [facility]at ion: [facility] S ource: EHR Grounds Supervisor bouchra: N Sawyerti ce ID: [id number] Zeb lable Time: 01:30:00 PM Carli Rice [facility] 2 12:02:15 Finding of desire for urinatio n [id number] Completed 201804/02/2021 Urgency of urinatio n;Record ed Elsewher e: No Locat ion: [facility] S ource: EHR Grounds Supervisor bouchra: N Sawyerti ce ID: 0001 Zeb lable Time: 02:15:00 PM Carli Rice [facility], [facility] 2 12:01:46 [id number] Completed 201904/02/2021 Gestatio nal diabetes mellitus in [facility], diet controll ed;Recor ded Elsewher e: No Locat ion: [facility] S ource: EHR Grounds Supervisor bouchra: N Sawyerti ce ID: 0001 Zeb lable Time: 03:45:00 PM Carli jimenez [facility] 2 12:01:21 Infectio n screenin g Completed 201804/02/2021 Encounte r for screenin g for oth infec/pa rastc diseases ;Recorde d Elsewher e: No [facility]at [facility] S ource: EHR Grounds Supervisor bouchra: N Practi ce ID: 0001 Zeb lable Time: 02:15:00 PM Carli jimenez [facility] [address] 12:01:[address] Concept Completed 201704/02/2021 Encntr for general adult medical exam w/o abnormal findings ;Recorde d Elsewher e: No Locat ion: Susan hope [facility] S ource: EHR Grounds Supervisor bouchra: N Practi ce ID: [id number] Zeb lable Time: 11:00:00 AM Carli jimenez [facility] 2 12:01:49 Antenata l screenin g for malforma tion Completed 201804/02/2021 Encounte r for antenata l screenin g for malforma tions;Re corded Elsewher e: No [facility]at ion: [facility] S ource: EHR Grounds Supervisor bouchra: N Practi ce ID: 0001 Zeb lable Time: 09:30:00 AM Carli jimenez, [facility] 2 12:02:08 Pregnanc y detectio n examinat ion Completed 201804/02/2021 Encounte r for pregnanc y test, result positive ;Recorde d Elsewher e: No [facility]at [facility] S ource: EHR Grounds Supervisor bouchra: N Practi ce ID: 0001 Zeb lable Time: 08:45:00 AM Carli jimenez, [facility] 2 12:02:[address] Concept Completed 201804/02/2021 Maternal care for oth abnormal ity and damage, unsp;Rec orded Elsewher e: No Locat ion: Susan [facility] S ource: EHR Grounds Supervisor bouchra: N Practi ce ID: 0001 Zeb lable Time: 01:30:00 PM Carli jimenez [facility] 2 12:01:32 Syphilis test finding [id number] Completed 201804/02/2021 Encntr screen for infectio ns w sexl mode of transmis s;Record ed Elsewher e: No [facility]at [facility]: [facility] S ource: EHR Grounds Supervisor bouchra: N Practi ce ID: 0001 Zeb lable Time: 02:15:00 PM Carli jimenez [facility] 2 12:02:00 Rubella screenin g status [id number] Completed 201804/02/2021 Encounte r for antenata l screenin g, unspecif ied;Larry rded Elsewher e: No Locat ion: [facility] S ource: EHR Grounds Supervisor bouchra: N Practi ce ID: [id number] Zeb lable Time: 09:45:00 [facility] 12:01:[address] Concept Completed 201704/02/2021 Nexplano n;Record ed Elsewher e: No Locat ion: [facility] S ource: EHR Grounds Supervisor bouchra: N Practi ce ID: [id number] Zeb lable Time: 12:40:44 PM Carli Rice [facility] 2 12:01:52 Finding of urine substanc e level Completed 201804/02/2021 Proteinu girish, unspecif ied;Larry rded Elsewher e: No [facility]: EHR Grounds Supervisor bouchra: N Practi ce ID: [id number] Zeb lable Time: 09:45:00 AM Carli jimenez [facility] 2 12:01:45 Lochia finding Completed 201904/02/2021 Encounte r for routine postpart um follow-u p;Record ed Elsewher e: No [facility] ource: EHR Grounds Supervisor bouchra: N Practi ce ID: [id number] Zeb lable Time: 09:45:00 AM Carli Rice [facility] 2 12:01:57 Placenta previa [id number] Completed 201804/02/2021 Placenta previa specifie d as w/o hemor, second trimeste r;Record ed Elsewher e: No [facility] S ource: EHR Grounds Supervisor bouchra: N Sawyerti ce ID: 0001 Zeb lable Time: 01:30:00 PM Carli jimenez [facility] 2 12:01:59 Antenata l screenin g Completed 201804/02/2021 Encounte r for antenata l screenin g for nuchal transluc ency;Rec orded Elsewher e: No Locat ion: Susan hope [facility] S ource: EHR Grounds Supervisor bouchra: N Sawyerti ce ID: 0001 Zeb lable Time: 09:15:00 AM Carli jimenez [facility] 2 12:01:36 Normal pregnanc y in multigra jhonny [id number] Completed 201804/02/2021 Encounte r for suprvsn of normal pregnanc y, third trimeste r;Record ed Elsewher e: No Locat ion: [facility] S ource: EHR Grounds Supervisor bouchra: N Sawyerti ce ID: 0001 Zeb lable Time: 08:30:00 AM Carli jimenez, [facility] 2 12:02:02 Gestatio n period, 24 weeks [id number] Completed 201804/02/2021 24 weeks gestatio n of pregnanc y;Record ed Elsewher e: No Locat ion: Soilalexii herminia [facility]: N Sawyerti ce ID: 0001 Zeb lable Time: 01:30:00 PM Carli jimenez [facility] 2 12:01:48 Procedur e on genitour inary system Completed 201904/02/2021 Encounte r for surgical aftercar e followin g surgery on the genitour inary system;R ecorded Elsewher e: No Locat ion: Susan herminia [facility] S ource: EHR Grounds Supervisor bouchra: N Sawyerti ce ID: 0001 Zeb lable Time: 02:15:00 PM Carli jimenez [facility] 2 12:01:24 Postoper ative care Completed 201904/02/2021 Encounte r for surgical aftercar e followin g surgery on the genitour inary system;R ecorded Elsewher e: No Locat ion: [facility] S ource: EHR Grounds Supervisor bouchra: N Practi ce ID: 0001 Zeb lable Time: 02:15:00 [facility] 12[facility] Concept Completed 201704/02/2021 Encntr for gynecology teacher exam (general ) (routine ) w/o abn findings ;Recorde d Elsewher e: No Locat ion: [facility] S ource: EHR Grounds Supervisor bouchra: N Practi ce ID: 0001 Zeb lable Time: 11:00:00 AM Carli jimenez [facility] 2 12:01:51 Vaginola bial hernia Completed 201804/02/2021 Other specifie d noninfla mmatory disorder s of vagina;R ecorded Elsewher e: No Locat ion: [facility] S ource: EHR Grounds Supervisor bouchra: N Practi ce ID: 0001 Zeb lable Time: 02:15:00 PM Carli jimenez [facility] 2 12:01:43 Hemorrha gic complica tion of pregnanc y [id number] Completed 201904/02/2021 Antepart um hemorrha ge, unspecif ied, third trimeste r;Practi ce ID: 0001 Carli jimenez, [facility] 2 12:01:20 False labor [id number] Completed 201904/02/2021 False labor, unspecif ied;Prac nori ID: 0001 Carli jimenez, [facility] 2 12:01:[address] Concept Completed 201904/02/2021 Matern care for abnlt fetl hrt rate or rhym, unsp tri, unsp;Pra ctice ID: 0001 Carli jimenez, [facility] 2 12:01:35 Single live from singleto n pregnanc y [id number] Completed 201904/02/2021 Single live ;Pr actice ID: 0001 Carli [facility], [facility] 2 12:01:29 Problem Notes None recorded. Procedures Surgical History Date Name Laterality Status Provider Name and Address Organization Details Recorded Time 3 Date of Last Pap Smear completed Nya Jeffrey [facility] 01/18/2023 15:27:[address] [facility] 04/02/2021 12:11:[address] [facility] 04/02/2021 12:11:29 Imaging Results None recorded. [...] Prescrib ed Elsewher e: No [facility]at [facility] By: bchadi mayer DateTime : [...] ed Elsewher e: No Locat ion: Susan [facility] odify By: bnestephanie mayer DateTime : 09/22/19 [...] Prescrib ed Elsewher e: No Locat ion: [place] [facility] odify By: smcaley Justice r DateTime : 04/20/19 10:15:00 AM Not Available Not Available Not Available Miconazol e-7 2 % vaginal cream insert 1 applicat orful by vaginal route at bedtime for 7 nights 2024 active Not Available Not Available Not Avai lable famotidin e 20 mg tablet 12/07 completed Not Available Not Available Not Available hydrocort isone 2.5 % lotion APPLY THIN LAYER TOPICALL Y TO THE AFFECTED AREA TWICE DAILY 12/07 completed Not Available Not Available Not Available tamsulosi n 0.4 mg capsule 09/19 completed Not Available Not Available Not Available [email or web address] Test strips CHECK FOUR TIMES DAILY DIRECTED [...] oral route every day 04/02 completed Prescrib clarita Waters e: No Locat ion: Susan herminia [facility] odify By: davion mayer DateTime : 06/12/19 03:29:12 PM Not Available Not Available Not Available Ortho-Cyc magalys (28) 0.25 mg-35 mcg tablet take 1 tablet by oral route every day 10/12 completed Prescrib ed Elsewher e: No Locat ion: [facility] odify By: black z Reena ter DateTime : 02/22/20 11:00:00 AM Not Available Not Available Not Available nitrofura ntoin monohydra te/macroc rystals 100 mg capsule Take 1 capsule twice a day by oral route for 7 days. 03/02 completed Not Available Not Available Not Available Vitamin D3 05/01 completed Not Available Not Available Not Available Fora G61-K23-P 10-D20 strips-la ncets 30 gauge combo pack Checking BS QID fasting and 1hr pp 05/08 completed Prescrib ed Elsewher e: No Locat ion: Kiki herminia [facility] odify By: joshua shaw DateTime : 03/08/19 08:54:45 AM Not Available Not Available Not Available 28 mg-800 mcg tablet 05/08 completed Prescrib ed Elsewher e: Yes Loca tion: [facility] odify By: joshua Rendon r DateTime : [...] and Address Organization Details Last Updated DateTime 05/01/2024 167.64 cm 28 kg/m2 52103.64 g 123/75 mm[Hg] Kylee Rajput [facility] 05/01/2024 15:08:17 Date Recorded Body height Body mass index (BMI) Body weight Systolic And Diastolic Provider Name and Address Organization Details Last Updated DateTime 01/03/2024 167.64 cm 26.6 kg/m2 26449.74 g 114/74 mm[Hg] Liza Monsalve [facility] 01/03/2024 14:26:08 Date Recorded Body height Body mass index (BMI) Body weight Systolic And Diastolic Provider Name and Address Organization Details Last Updated DateTime 02/07/2024 167.64 cm 27.9 kg/m2 42654.48 g 127/85 mm[Hg] Sybil Tinajero [facility] 02/07/2024 19:52:57 Date Recorded Body height Body mass index (BMI) Body weight Systolic And Diastolic Provider Name and Address Organization Details Last Updated DateTime 03/02/2024 167.64 cm 28.1 kg/m2 21623.51 g 125/77 mm[Hg] Kylee Vacaney [facility] 03/02/2024 12:43:03 Social History Question Answer Notes LastModified by Organizat ion Details LastModified Time Tobacco Smoking Status Former Smoker Carli Collinsavery jimenez, [facility] 04/02/2021 12:10:56 Are You Blind Or Do You Have Difficulty Seeing? No [email or web address] Information not available 12/07/2021 What Is Your Level Of Caffeine Consumption? Occasional [email or web address] Information not available 12/07/2021 In The 14 Days Before Symptom Onset, Have You Had Close Contact With A Laboratory-confir med COVID-19 While That Case Was Ill? No [email or web address] Information not available 12/07/2021 In The 14 Days Before Symptom Onset, Have You Had Close Contact With A Person Who Is Under Investigation For COVID-19 While That Person Was Ill? No [email or web address] Information not available 12/07/2021 Have You Been To An Area Known To Be High Risk For COVID-19? No [email or web address] Information not available 12/07/2021 Are You Deaf Or Do You Have Serious Difficulty Hearing? No [email or web address] Information not available 12/07/2021 What Type Of Diet Are You Following? REGULAR [email or web address] Information not available 12/07/2021 Have You Ever Been Counseled For Unhealthy Alcohol Use? No [email or web address] Information not available 12/07/2021 Do You Use Your Seat Belt Or Car Seat Routinely? Yes [email or web address] Information not available 12/07/2021 Do You Have Smoke And Carbon Monoxide Detectors In Your Home? Yes [email or web address] Information not available 12/07/2021 Do You Use Sunscreen Routinely? Yes [email or web address] Information not available 12/07/2021 Has Tobacco Cessation Counseling Been Provided? No [email or web address] Information not available 12/07/2021 Do You Have Difficulty Walking Or Climbing Stairs? No [email or web address] Information not available 12/07/2021 Sex: Unknown Functional Status Question Answer Note LastModified by Organizat ion Details LastModified Time Do you use any illicit or recreational drugs? No [email or web address] Information not available 12/07/2021 Do you or have you ever used any other forms of tobacco or nicotine? No [email or web address] Information not available 12/07/2021 What is your level of alcohol consumption? Occasional Information not available 12/07/2021 Are you able to walk? YESWOREST [email or web address] Information not available 12/07/2021 Are you able to care for yourself? Yes [email or web address] Information n ot available 12/07/2021 Do you have difficulty dressing or bathing? No [email or web address] Information not available 12/07/2021 What is your exercise level? Occasional Information not available 12/07/2021 Mental Status Question Answer Note LastModified by Organization D etails LastModified Time Do you feel stressed (tense, restless, nervous, or anxious, or unable to sleep at night)? [id number] Information not available 12/07/2021 Family History Relationship Description Onset Age of this Age Resolved Age Notes LastModified by Organization Details LastModified Time Father No current problems or disability [email or web address] Not available 04/02 12:10:47 Mother No current problems or disability [email or web address] Not available 04/02 12:10:47 Medical History Condition Response Other Y Blood Transfusion N Dermatologic Disorders N Gestational Diabetes Y Anxiety Disorder N Autoimmune disease N Arthritis N Polyps N Infertility N Acid Reflux (GERD) N Cancer N Varicosities N Stroke N Neurologic/Epilepsy N Fibromyalgia N Headaches N Kidney Disease N Heart Problems N Kidney or Bladder Problems N Eating Disorder N Art (IVF or FET) N Hepatitis/Liver Disease N No Past Medical History N Urinary Tract Infection N Asthma N Trauma/Violence N Thrombophilias N Allergies (Food, seasonal, environmental ) N Breast Cancer N Drug/Latex Allergies/Reactions N Lung Disease N Defects or Inherited Disease N Breast Problem N Hematologic disorders N Anesthesia Complications N History of STI N Deep Vein Thrombosis N Polycystic ovary syndrome N History of abnormal pap N Endometriosis N High Cholesterol N Thyroid Problems N GI Problems N Anemia N Psychiatric Illness N Ovarian Cancer N Diabetes Y Pulmonary (TB, Asthma) N Eczema N Abuse/Domestic Violence N Depression/ depression N Heart Disease N Pre-Eclampsia N Hypertension N Osteoporosis N Gynecological History Statement/Question Response Date of Last Mammogram Flow Moderate Date of LMP 04/06/2024 Was last menstrual period normal Y STIs/STDs [...] SNOMED-CT Code Diagnosis ICD10 Code Diagnosis Note [id number] Kristy Luz [facility] [address] [address] 04/02/2021 11:57:53 04/03/2021 09:48:09 Urinary symptoms 829170842 R39.9 Increase water and decrease caffeine. Call if any new or worsening symptoms. Missed period 90140672 N 92.5 Vaginitis 77302055 N76.0 Discussed use of mild soap like dove or ivory, cotton underwear w/out dye, hypoallerg enic detergent, wipe from front to back, avoid tub baths, keep perineum clean and dry, d/c use of baby wipes. Encouraged daily intake of yogurt or womens health probiotic. Internal and external affirm collected. Declined std screen. [id number] Kristymartin Luz [place] [address],[place] [address] 12/07/2021 15:34:53 12/07/2021 16:25:59 Skin disorder of breast 296763051 N64.89 Yeast of the nipple. Instructed to keep clean and dry. Wash bra's in warm soapy water. Ensure nipple is dry after feeding. Will send out diflucan. Encouraged to have child evaluated for thrush. If no improvemen t in the next few days she will call us. [id number] Enriqueta Schumacher CRY[facility] [address],[place] [address] 12/10/2021 13:43:09 12/10/2021 14:56:47 Acute mastitis 95494586 N61.0 Suspect mastitisWe agreed to antibiotic course [...] and review of plan of care. Vaginitis 28080206 N76.0 Vaginitis panel sentRx for metronidaz ole vaginal gel, she will start it after this periodR/B of this medication discussed and accepted by patient [id number] ABBY Cherry [facility] [address],[facility] [place] [address] 12/23/2021 10:33:20 12/23/2021 10:59:27 Abscess of skin of breast 1737700348 6183363 N61.1 Suspect possible staph infection of open area near left nipple. Swab of the area obtained and sent for culture.Rx sent for bactrim, twice a day for 10 days.She will call pediatrici an and clear taking the bactrim while breastfeed ing before starting. Encouraged her to also have infant seen by pediatrici an.Encoura ged pumping / [...] counseling and review of plan of care. [id number] ABBY Cherry [facility] [address] [address] 01/06/2022 12:43:32 01/06/2022 14:08:50 Abscess of skin of breast 2148576177 2242503 N61.1 Healing well, scabbed overNo discharge or [...] counseling and review of plan of care. [id number] ABBY Cherry [facility] [address] [address] 03/23/2022 11:54:09 03/23/2022 12:44:33 Urinary symptoms 285997593 R39.9 Vaginitis 30632650 N76.0 Suspect yeastVagin itis panel sentSTI testing declinedUr ine cx sentVulvar care guidelines discussedR x sentR/B of medication discussedR TC if symptoms persist past treatment Time spent in visit is a total of 25 mins with at least 50% of visit consisting of counseling and review of plan of care. [id number] ABBY Cherry [facility] [address] [address] 09/14/2022 11:07:06 09/14/2022 12:12:05 Venereal disease screening 612689111 Z11.3 Sexually t ransmitted infectious disease 8964541 A64 Gynecologi c examination 87777041 Z01.419 Z11.51 Take Calcium with Vitamin D [...] 1 year or sooner if needed Hemorrhoids 44416072 K64 .9 increase water intake, increase fiberup to date hemorrhoid education sheet given to patientrx sentoffere d surgeon referral, declined [id number] ABBY Cherry [facility] [address] [address] 11/12/2022 10:50:21 11/12/2022 12:09:27 Venereal disease screening 156421544 Z11.3 UA normalgc/c t/trich testing sentvulvar care guidelines discussedr x for fluconazol e, r/b/a reviewedco ndom use encouraged RTC for WWE or sooner if needed Vaginitis 19783145 N76.0 [id number] MONIQUE COMER MD [facility] [address],[place] [address] 12/13/2022 11:41:08 12/16/2022 09:39:07 [id number] ABBY Cherry [facility] [address],[place] [address] 12/16/2022 12:14:08 12/16/2022 15:41:26 Vaginitis 17714066 N76.0 suspect BV/yeast and UTIvaginit is/STI panel senturine cx sentrx sent, r/b/a reviewedwi ll update patient with results when availables afe sexual practices discussed and encouraged Time spent in visit is a total of 35 mins with at least 50% of visit consisting of counseling and review of plan of care. Urinary symptoms 4834740 08 R39.9 Venereal d isease screening 053511413 Z11.3 Amenorrhea 19532723 N91. 2 [id number] Enriqueta Schumacher [facility] [address],[place] [address] 01/18/2023 15:18:05 01/19/2023 09:27:12 Vaginitis 38654164 N76.0 suspect yeastvagin itis panel sentSTI panel declinedrx sent, r/b/a reviewedvu lvar care guidelines discussedd iscussed boric acid capsulesRT C if symptoms persist past treatment Time spent in visit is a total of 20 mins with at least 50% of visit consisting of counseling and review of plan of care. [id number] Enriqueta Schumacher [facility] [place] [address],[place] [address] 03/29/2023 12:37:02 03/29/2023 14:07:09 Vaginitis 61971257 N76.0 suspect yeastvagin itis/STI panel sentUA normalrx sent, r/b/a reviewedBC options discussed - declined Time spent in visit is a total of 25 mins with at least 50% of visit consisting of counseling and review of plan of care. Urinary symptoms 8036884 08 R39.9 Venereal d isease screening 406294935 Z11.3 Contracept ion care management 931254736 Z30.9 [id number] Enriqueta Schumacher [facility] [address],[place] [address] 07/26/2023 11:30:36 07/26/2023 12:03:19 Urinary symptoms 319049355 R39.9 UA/cx sentrx sent for macrobid - r/b/a reviewedva ginitis panel sentdeclin ed STI screenrx sent for yeast - r/b/a reviewedvu lvar care guidelines discussedp recautions reviewedWW E due 09/2023 Time spent in visit is a total of 25 mins with at least 50% of visit consisting of counseling and review of plan of care. Pain in pelvis 86784108 R10.2 Vulval irritation 328960 003 N90.89 [id number] Enriqueta Schumacher [place] [address],[place] [address] 08/03/2023 09:59:56 08/03/2023 11:07:50 Urinary symptoms 223033024 R39.9 repeat urine culture sentrx for pyridium, [...] plan of care. Venereal d isease screening 002843781 Z11.3 [id number] [place] [address],[place] [address] 08/16/2023 12:14:08 08/16/2023 13:24:35 Vulval irritation 924068511 N90.89 extended vaginitis panel sentgc/ct/ trich testing sentvulvar care guidelines discussedr x sent for fluconazol e, r/b/a reviewedny statin/tri amcinolone ointment BID x 5 daysconsid er referral to vulvar administrator health care facility if symptoms continue - discussed with pt Time spent in visit is a total of 25 mins with at least 50% of visit consisting of counseling and review of plan of care. Venereal d isease screening 940371544 Z11.3 [id number] Enriqueta Schumacher [facility] [address],[place] [address] 09/20/2023 14:45:50 09/20/2023 15:50:09 Vaginitis 39933376 N76.0 vaginitis panel sentdeclin ed STI screenrx sent for BV/yeast - r/b/a reviewedvu lvar care guidelines discussedc onsider referral to vulvar administrator health care facility if symptoms continue, discussed with pt Time spent in visit is a total of 20 mins with at least 50% of visit consisting of counseling and review of plan of care. [id number] Enriqueta Schumacher [facility] [address],[place] [address] 10/05/2023 12:16:13 10/06/2023 10:33:51 [id number] MONIQUE COMER MD [facility] [address],[place] [address] 01/03/2024 14:13:50 01/03/2024 14:27:00 Vaginal discharge 562116530 N89.8 [id number] MONIQUE COMER MD [facility] [address],[place] [address] 01/27/2024 14:47:43 01/27/2024 15:55:06 Urinary symptoms 357800756 R39.9 Vaginal discharge 926584 006 N89.8 Urinary tr act infectious disease 62033756 N39.0 [id number] MONIQUE COMER MD [facility] [address],[place] [address] 02/07/2024 13:50:28 02/08/2024 09:29:23 Urinary symptoms 422798689 R39.9 [id number] Enriqueta Schumacher [facility] [address],[place] [address] 03/02/2024 12:33:06 03/05/2024 11:22:23 Vulval irritation 139241211 N90.89 vaginitis panel sentHSV PCR sentdeclin ed gc/ct/tric h testing - recently had neg testingvul criss care guidelines discussedw ill await testing and treat as indicated. Avoid shaving/wa gillian until symptoms resolve, follow vulvar care guidelines Time spent in visit is a total of 25 mins with at least 50% of visit consisting of counseling and review of plan of care. [id number] ABBY Cherry [facility] [address] [address] 05/01/2024 14:57:45 05/01/2024 16:50:56 Urinary symptoms 799770736 R39.9 urine cx sent Unprotecte d sexual intercourse 5532581 Z72.51 UPT (-) today, bhcg ordered per pt request Vaginitis 64940755 N76.0 vaginitis panel sentSTI screen declinedrx sent for yeast (pt prefers topical treatment) vulvar care guidelines discussed, questions answered Time spent in visit is a total of 22 mins with at least 50% of visit consisting of counseling and review of plan of care. Increased frequency of urination 930739226 R35.0 Vaginal discharge 445547 006 N89.8 Health Concerns Section Related Observation LastModified by Organization Detai ls LastModified Time None Recorded Concern Status LastModified by Organization Details LastModified Time None Recorded Advance Directives Directive None Recorded Payers Encounter Date Sequence Insurance Name Policy Number Policy Hilton Covered Member ID Hilton Member ID Guarantor Name 01/03/2024 1 [facility] ON OR AFTER 09/04/20 (MEDICAID REPLACEMENT - HMO) Alphonse Herron [id number] Alphonse Herron 01/27/2024 1 [facility] ON OR AFTER 09/04/20 (MEDICAID REPLACEMENT - HMO) Alphonse Herron [id number] Alphonse Germaine 02/07/2024 1 [facility] ON OR AFTER 09/04/20 (MEDICAID REPLACEMENT - HMO) Alphonse Herron [id number] Alphonse Germaine 03/02/2024 1 [facility] ON OR AFTER 09/04/20 (MEDICAID REPLACEMENT - HMO) Alphonse Herron [id number] Alphonse Germaine 05/01/2024 1 [facility] ON OR AFTER 09/04/20 (MEDICAID REPLACEMENT - HMO) Alphonse Herron [id number] Alphonse Herron Notes Date Note Type Note Provider Name and Address Organization Details Recorded Time 4 text/html 31yopresents for vulvar irritationnoticed symptoms a few days ago after shavingirritation, thomson when wiping/urinatingno new partnersneg urinary symptomsneg n/v/fneg d/c, odors, itchingneg flu-like symptoms ABBY Cherry [address], [place], [address], [facility] 03/05/2024 09:08:02 5 text/html 31yopresents with c/o vaginal itching/irritation/disch argeurinary frequencywithdrawal for BC, no new partnersLMP 04/06took a UPT yesterday that showed a faint positive result neg dysurianeg n/v/fneg pelvic painneg odors ABBY Cherry [address], [place], [address], [facility] 05/01/2024 16:45:28 OBGyn Episode Ob Episode Information Episode Created Date Number of Fetuses Patient Bloodtype Patient rh Status Prepregnancy Weight lbs Domestic Partner Domestic Partner Phone Father Name Marketing Budget Analyst Status 04/02/19 22 1 CLOSED Fetus Data First Name Last Name Admitted to NICU Weight (g) Sex Living Outcome Pediatric Complications Fetus ID Race Codes Race Delivery Type 4082.32 8 M Full Term [id number] Repeat Laith Calculation Initial Laith Date Initial [...] Domestic Partner Domestic Partner Phone Father Name Marketing Budget Analyst Status 04/02/19 22 1 CLOSED Fetus Data First Name Last Name Admitted to NICU Weight (g) Sex Living Outcome Pediatric Complications Fetus ID Race Codes Race Delivery Type 3543.46 0704 M Prematur e [id number] Primary Laith Calculation Initial Laith Date Initial [...]
--- OUTSIDE RECORDS SUMMARY | 2024-07-31 16:19 | XMS_ITS | Referral Summary ---
Author Organization [facility] Address [facility] [place] [address] Care Team Providers Care Banking Center Manager Name Role Phone No, Physician Primary Care Provider [phone] Allergies Active Allergy Reactions Criticality Noted Date [...] Plan of Treatment Not on file Insurance [facility] Care Teams Banking Center Manager Relationship Specialty Start Date End Date No, Physician PCP - General 08/05/23
[2024-07-31 16:25] VITALS: BP 133/73; PULSE 89; RESP 16; TEMP 36.4; O2SAT 100
--- OUTSIDE RECORDS SUMMARY | 2024-07-31 17:58 | XMS_ITS | Clinical Summary ---
Author Organization [facility] Address [address] [place] [address] Care Team Providers Care Enamel Finisher Name Role Phone Lidia Pope MD Unavailable Source Comments [facility],non-owned Affiliates and Associated Physician Practices is amultiple site organization consisting of ambulatory clinics and hospital sitesin [place], [place], [place] and [place]. This disclosure is being madepursuant to the Care Everywhere program and may not contain all information available regarding this patient. Last updated 17.[facility] Allergies Active Allergy Reactions Criticality Noted [...] on file Legal Sex Female 6:56 AM GEAR TESTER Gender Identity Not on file Sexual Orientation Not on file Last Filed Vital Signs Vital Sign Reading Time Taken Comments Blood Pressure 102/52 02/16/2014 11:00 AM GEAR TESTER Pulse 95 02/16/2014 11:36 AM GEAR TESTER Temperature 36.8 C (98.2 F) 02/16/2014 11:36 AM GEAR TESTER Respiratory Rate 16 02/16/2014 11:36 AM GEAR TESTER Oxygen Saturation 100% 02/16/2014 11:36 AM GEAR TESTER Inhaled Oxygen Concentration - - Weight 69.9 kg (154 lb) 02/16/2014 1:32 PM GEAR TESTER Height 167.6 cm (5' 6) 02/16/2014 1:32 PM GEAR TESTER Body Mass Index 24.86 02/16/2014 1:32 PM GEAR TESTER Plan of Treatment Health Maintenance Due Date [...] patient's age to complete this topic Insurance DODGE Vaunte [facility] * Guarantor: EVI HERRON Account Type Relation to Patient Date of Phone Billing Address Personal/Family [address] [place] [address] Care Teams Enamel Finisher Relationship Specialty Start Date End Date Lidia Pope MD PCP - Pediatrics 03/13/09
--- OUTSIDE RECORDS SUMMARY | 2024-07-31 17:58 | XMS_ITS | Continuity of Care Document ---
Author Organization [facility] Address [address] [facility] [place] [address] Phone Care Team Providers Care Cheesemaking Laborer Name Role Phone Isidro Crawford MD Unavailable [...] Copied on Encounter OFFICE/OUTPA TIENT VISIT, EST [facility], [address] [place], [place], [id number], tel:[phone] [facility] anxiety (chief complaint) mood swing (chief complaint) Generalized anxiety disorderBipolar disorder, unspecifiedDepressi on [address] [facility] [place], [place], [id number] , [place]. tel:[phone] Referring Provider: Isidro Crawford, [address], [place], [place], [id number]. tel:[phone] OFFICE/OUTPA TIENT VISIT, [facility], [address], [place], [place], [id number], [place] [phone] [facility] anxiety (chief complaint) panic attacks (chief complaint) Bipolar disorder, unspecifiedGenerali zed anxiety disorderDepression 0-[address], [place], [place], [address] , [place]. [phone] Referring Provider: Byron [address], [place], [place], [id number]. tel:[phone] OFFICE/OUTPA TIENT VISIT, [facility], [address], [place], [place], [id number], [place] tel:[phone] [facility] anxiety (chief complaint) mood swing (chief complaint) Major depressive affective disorder, single episode, mild degreeGeneralized anxiety disorderBipolar disorder, unspecified [address], [place], [place], [address] , [place]. [phone] Referring Provider: Byron [address], [place], [place], [id number]. tel:[phone] OFFICE/OUTPA TIENT VISIT, [facility], [address], [place], [place], [address], [place] tel:[phone] [facility] anxiety (chief complaint) Major depressive affective disorder, single episode, mild degreeGeneralized anxiety disorder [address], [place], [place], [address] , [place]. [phone] Referring Provider: Byron [address], [place], [place], [id number]. tel:[phone] PREV VISIT, NEW, AGE 18-39 [facility], [address], [place], [place], [address], [place] tel:[phone] [facility] Physical (chief complaint) Routine Medical ExamGeneralized anxiety disorderMajor depressive affective disorder, single episode, mild degreeRoutine Medical Exam [address]. [address], [place], [place], [id number] , [place]. tel:[phone] Family History Family Member Type Diagnosis Age [...] Mental Status Date Cognitive Assessment Orientation - [place] ed to time, place, person, situation.
--- OUTSIDE RECORDS SUMMARY | 2024-07-31 17:58 | XMS_ITS | Encounter Summary ---
Author Organization [facility] Address [address] [place] [address] Care Team Providers Care Insurance Claims Supervisor Name Role Phone Lidia Pope MD Unavailable Encounter Details Date Type Department Care Team (Late st Contact Info) Description 04/26/2013 [facility] Outpatient Visit CG DEFAULT [address] [place] [address] Unknown, Provider Social History Tobacco Use Types Packs/Day Years Used Date Smoking Tobacco: Never Alcohol Use Standard Drinks/Week Comments Not Asked 0 (1 standard drink = 0.6 oz pur e alcohol) Comments Unknown Sex and Gender Information Value Date Recorded Sex Assigned at Not on file Legal Sex Female 6:56 AM CONCIERGE MANAGER Gender Identity Not on file Sexual Orientation Not on file documented as of this encounter Plan of Treatment Not on file documented as of this encounter Visit Diagnoses Not on filedocumented in this encounter Care Teams Insurance Claims Supervisor Relationship Specialty Start Date End Date Lidia Pope MD PCP - Pediatrics 03/13/09 documented as of this encounter
--- NOTE | 2024-07-31 18:29 | ED.BACK ---
HPI - Back Pain/Injury General Chief Complaint: Back Pain/Injury Stated Complaint: 15wks preg, back pain, no cramping/bleeding Time Seen by Provider: 07/31/24 17:38 History of Present Illness HPI Narrative: Patient is a 33-year-old female who presents to the ER with right flank pain. She reports the pain started 2 days ago. Patient has been using Tylenol, ice and heat to help relieve her symptoms, but she continues to experience significant pain. She reports the pain increases when she raises her right arm and bends to the left side. Pt denies any urinary symptoms, recent fevers, or abdominal pain. She reports she is 15 weeks . Related Data Home Medications ?Medication ?Instructions ?Recorded ?Confirmed ?Last Taken ?Type fluconazole 150 mg tablet mg 03/26/24 Unknown History Allergies Allergy/AdvReac Type Severity Reaction Status Date / Time buspirone Allergy Severe Swelling Verified 07/31/24 16:17 of Lip/Tongue/Throat peanut Allergy Severe Swelling Verified 07/31/24 16:17 of Lip/Tongue/Throat Review of Systems Review of Systems: All systems reviewed & are unremarkable except as noted in HPI and below PMFSH Past Medical History Medical History Smoker Yeast infection Currently Family History Family History Other No pertinent family history Social History Social History Years smoked: 6 Smoking status: Former smoker Tobacco type: cigarettes Second hand tobacco smoke exposure: No Substance use: never Gender identity (if verbalized by the patient): Female Spiritual care concerns: No Exam Narrative: GENERAL: Well appearing, well-nourished, non-toxic, in mild distress due to pain. HEAD: Normocephalic, atraumatic. NECK: Supple. No adenopathy, no masses. RESPIRATORY: Airway patent, respirations nonlabored. Clear to auscultation bilaterally, no rales, rhonchi, wheezing. CARDIOVASCULAR: Regular rate and rhythm without murmurs, rubs, or gallops. Peripheral pulses 2+ and equal bilaterally. +R CVA tenderness ABDOMINAL: Soft, nontender, nondistended, no hepatosplenomegaly. Normoactive BS. MUSCULOSKELETAL: Moves all extremities. Strength/ROM intact without gross deformities. SKIN: Warm, dry, normal color. No rashes. NEURO: A&O X3. Speech clear. Cranial nerves II-XII intact. No ataxic movements. PSYCHIATRIC: Appropriate mood and affect. Normal interaction. Course Vital Signs Vital signs: Vital Signs Temperature 36.4 C 07/31/24 16:25 Pulse Rate 89 07/31/24 16:25 Respiratory Rate 16 07/31/24 16:25 Blood Pressure 133/73 07/31/24 16:25 Pulse Oximetry 100 07/31/24 16:25 Oxygen Delivery Room Air 07/31/24 16:25 Temperature 36.6 C 07/31/24 19:36 Pulse Rate 69 07/31/24 19:36 Respiratory Rate 20 07/31/24 19:36 Blood Pressure 110/53 L 07/31/24 19:36 Pulse Oximetry 100 07/31/24 19:36 Oxygen Delivery Room Air 07/31/24 16:25 MDM - Back Pain/Injury MDM Narrative Medical decision making narrative: Patient is a 33-year-old female who presents to the ER with right flank pain. She reports the pain started 2 days ago. Patient has been using Tylenol, ice and heat to help relieve her symptoms, but she continues to experience significant pain. She reports the pain increases when she raises her right arm and bends to the left side. Pt denies any urinary symptoms, recent fevers, or abdominal pain. She reports she is 15 weeks . Labs Ordered: CBC, CMP, INR, PTT, UA Imaging Ordered: Bilateral renal ultrasound Medications Ordered: Morphine 10 mg IM, Pyridium 200 mg p.o., ceftriaxone 1 g IM, 1L NS IV bolus Results: Pt's urinalysis indicates patient has a urinary tract infection. Pt's bilateral ultrasound indicates RIGHT KIDNEY: Measures 15x 7x 6.6 cm in length which is normal in size. No renal cysts. No renal mass or visualized echogenic stones. Otherwise, normal echotexture and contour. No hydronephrosis. Normal renal cortical thickness. LEFT KIDNEY: Measures 14.4x 7.2x 6.2 cm in length which is normal in size. No renal cysts. No renal mass or visualized echogenic stones. Otherwise, normal echotexture and contour. No hydronephrosis. Normal renal cortical thickness. Intrauterine . Pt's CMP indicate pt has a normal kidney function and indicate pt is mildly dehydrated. Her CBC indicates a WBC of 11.7 which is consistent with her having a UTI. Diagnosis: urinary tract infection, mild dehydration Patient Education/Shared MDM: Results of lab work and imaging shared with patient. She continues to endorse significant back pain, although she took Tylenol prior to arrival. Patient will be given a dose of IM morphine and a dose of Pyridium here in the ER prior to discharge. She was strongly advised to maintain hydration status upon discharge and follow-up with her OBGYN as soon as possible. She will be discharged home with a prescription for Macrobid and Pyridium. Strict return precautions provided. Patient verbalized understanding and is in agreement with plan. Vital signs stable at time of discharge. All questions answered. Differential Diagnosis Differential diagnosis: Likely strain of lumbar region, pyelonephritis and other (Urinary tract infection, kidney stones, muscle strain) Lab Data Attestation: I reviewed the patient's lab results. 07/31/24 18:48 07/31/24 18:48 Labs: Lab Results 07/31/24 Range/Units 18:48 WBC 11.7 H (4.5-10.0) K/mm3 RBC 3.79 L (4.2-5.4) M/mm3 Hgb 12.1 (12.0-15.0) g/dL Hct 36.5 L (37.0-47.0) % MCV 96.3 (80-100) fl MCH 31.9 (26-34) pg MCHC 33.2 (32-36) g/dl RDW 13.0 (11.5-14.5) % Plt Count 200 (150-375) k/mm3 MPV 9.8 (7.4-10.4) fl Immature Gran % (Auto) 0.6 H (0-0.5) % Neut % (Auto) 69.6 (45.5-73.1) % Lymph % (Auto) 22.5 (18.3-44.2) % [place] % (Auto) 6.0 (2.6-8.5) % Eos % (Auto) 1.1 (0-4.4) % Baso % (Auto) 0.2 (0.2-1.2) % Lymph # (Auto) 2.64 (0.9-3.2) K/mm3 [place] # (Auto) 0.7 H (0.1-0.6) K/mm3 Eos # (Auto) 0.1 (0-0.3) K/mm3 Baso # (Auto) 0.0 (0.0-0.1) K/mm3 Abs Immat Gran (auto) 0.07 H (0.00-0.031) K/mm3 Absolute Neuts (auto) 8.2 H (1.3-6.7) K/mm3 Absolute Nucleated RBC 0.000 (0.0-0.012) K/mm3 Nucleated RBC % 0.0 (0.0-0.2) % PT 12.7 (11.1-14.7) Seconds INR 0.9 APTT 24.7 (22.3-36.8) Seconds Sodium 135 L (137-145) mmol/L Potassium 3.8 (3.4-5.0) mmol/L Chloride 107 (98-107) mmol/L Carbon Dioxide 21 L (22-30) mmol/L Anion Gap 7 (4-12) mmol/L BUN 7 (7-17) mg/dL Creatinine 0.40 L (0.7-1.0) mg/dL Estim Creat Clear Calc 180 ml/min Estimated GFR > 60 (59 - ) Glucose 78 (65-110) mg/dL Calcium 8.9 (8.4-10.2) mg/dL Total Bilirubin 0.2 (0.2-1.3) mg/dL AST 30 (14-36) U/L ALT 23 (6-35) U/L Alkaline Phosphatase 58 (38-126) U/L Total Protein 7.0 (6.3-8.2) g/dL Albumin 4.0 (3.5-5.1) g/dL Urine Color Yellow (Yellow) Urine Appearance Cloudy H (Clear) Urine pH 5.5 (5.0-9.0) Ur Specific [place] 1.020 (1.001-1.035) Urine Protein Negative (Negative) mg/dL Urine Glucose (UA) Negative (Negative) mg/dL Urine Ketones Negative (Negative) mg/dL Ur Blood (Man) Negative (Negative) Urine Nitrate Negative (Negative) Urine Bilirubin Negative (Negative) Urine Urobilinogen 0.2 (<2.0) mg/dL Add Ur Microanalysis Reviewed Leukocyte Esterase Rfl 3+ H (Negative) AURELIO/UL Urine RBC 21-50 H (0-2) /hpf Urine WBC 6-10 H (0-3) /hpf Ur Squamous Epith Cells Many H (Few) /hpf Urine Bacteria 4+ H /hpf Urine Casts 3-5 Imaging Data Attestation: I personally reviewed and interpreted this imaging study as follows: Radiologist's impression: Impressions Renal Ultrasound 07/31/24 21:09 IMPRESSION: Normal study. Intrauterine . Discharge Plan Discharge Clinical Impression: Urinary tract infection, Currently , Right low back pain Patient Disposition: Home Condition: Stable Instructions: Antibiotic Form, Urinary Tract Infection in Women (ED), Back Pain (ED) Additional Instructions: Please return to the ER with any worsening symptoms. Follow-up with your OBGYN as soon as possible. Take all medications as prescribed. Complete your full dose of antibiotics. Patient Language: Macedonian Prescriptions: New nitrofurantoin monohyd/m-cryst [Macrobid] 100 mg capsule 100 mg PO Q12H 5 Days Qty: 10 0RF Rx Instructions: must administer with a meal/food phenazopyridine [Pyridium] 200 mg tablet 200 mg PO TID Qty: 6 0RF No Action fluconazole 150 mg tablet Follow-up/Referrals: Devon Burrows MD [Physician] - (OBGYN) PHYSICIAN,BALL MILL OPERATOR [Primary Care Provider] - Time of Disposition: 22:03
[2024-07-31] MEDS: SODIUM CHLORIDE 0.9% IV 1,000 ML 999 ML IV CONT (18:54)
[2024-07-31 19:04] LABS: Basophils Percent Auto 0.2 % (0.2-1.2); Eosinophils Absolute Auto 0.1 K/mm3 (0-0.3); Eosinophils Percent Auto 1.1 % (0-4.4); Hematocrit 36.5 % (37.0-47.0); Hemoglobin 12.1 g/dL (12.0-15.0); Immature Granulocyte Absolute 0.07 K/mm3 (0.00-0.031); Immature Granulocyte Percent A 0.6 % (0-0.5); Lymphocytes Absolute Auto 2.64 K/mm3 (0.9-3.2); Lymphocytes Percent Auto 22.5 % (18.3-44.2); Mean Corpuscular HGB Conc 33.2 g/dl (32-36); Mean Corpuscular Hemoglobin 31.9 pg (26-34); Mean Corpuscular Volume 96.3 fl (80-100); Mean Platelet Volume 9.8 fl (7.4-10.4); Monocytes Absolute Auto 0.7 K/mm3 (0.1-0.6); Neutrophils Absolute Auto 8.2 K/mm3 (1.3-6.7); Neutrophils Percent Auto 69.6 % (45.5-73.1); Platelet Count Result 200 k/mm3 (150-375); Red Blood Count 3.79 M/mm3 (4.2-5.4); White Blood Count 11.7 K/mm3 (4.5-10.0)
[2024-07-31 19:15] LABS: Alanine Aminotransferase 23 U/L (6-35); Alkaline Phosphatase 58 U/L (38-126); Anion Gap 7 mmol/L (4-12); Aspartate Amino Transferase 30 U/L (14-36); Bilirubin,Total 0.2 mg/dL (0.2-1.3); Blood Urea Nitrogen 7 mg/dL (7-17); Calcium 8.9 mg/dL (8.4-10.2); Carbon Dioxide 21 mmol/L (22-30); Chloride 107 mmol/L (98-107); Estimated CRCL calculation 180 ml/min; Estimated Glomerular Filt Rate > 60; Glucose 78 mg/dL (65-110); Potassium 3.8 mmol/L (3.4-5.0); Sodium 135 mmol/L (137-145)
--- NOTE | 2024-07-31 19:22 | PC.NURSE ---
1921-CALLED TO OB. WILL SEND NURSE TO ATTEMPT TO LOCATE HEART TONES. PATIENT ADVISED.
[2024-07-31 19:30] LABS: Add Urine Microscopic? YES; Appearance Urine Cloudy (Clear); Bacteria Urine 4+ /hpf; Bilirubin Urine Negative (Negative); Blood Urine Negative (Negative); Color Urine Yellow (Yellow); Glucose Urine UA Negative (Negative); Ketones Urine Negative (Negative); Leukocyte Esterase Ur 3+ LEU/UL (Negative); Need Manual Microscopic Reviewed; Nitrate Urine Negative (Negative); Protein Urine Negative (Negative); RBC Urine 21-50 /hpf (0-2); Squamous Epithelial Cell Urine Many /hpf (Few); Urobilinogen Urine 0.2 mg/dL (<2.0); pH Urine 5.5 (5.0-9.0)
[2024-07-31 19:36] VITALS: BP 110/53; PULSE 69; RESP 20; TEMP 36.6; O2SAT 100
[2024-07-31 19:43] LABS: INR 0.9; Partial Thromboplastin Time 24.7 Seconds (22.3-36.8); Prothrombin Time 12.7 Seconds (11.1-14.7)
[2024-07-31 21:30] VITALS: BP 114/60; PULSE 74; RESP 20; TEMP 36.6; O2SAT 99
[2024-07-31] MEDS: PHENAZOPYRIDINE HCL 100 MG TABLET 200 MG PO (21:36)
[2024-07-31] MEDS: MORPHINE SULFATE INJ (*CRX) 10 MG/ML AMP IM (21:45)
[2024-07-31] MEDS: cefTRIAXone 1 GM VIAL IM (21:46)
[2024-07-31] MEDS: WATER, STERILE FOR INJECTION 10 ML VIAL XX (21:46)
== END 2024-07-31 22:14 | disposition home or self-care (01) ==
PROVIDERS: Emergency Provider Registered Nurse
DX: O23.42 Unspecified infection of urinary tract in pregnancy, second trimester (principal); N39.0 Urinary tract infection, site not specified; O99.891 Other specified diseases and conditions complicating pregnancy; M54.50 Low back pain, unspecified; Z87.891 Personal history of nicotine dependence; Z3A.15 15 weeks gestation of pregnancy
CPT/HCPCS: 36415; 76775; 80053; 81001; 85025; 85610; 85730; 96360; 96372; 99284; A9270; J0696; J2270; J7030

== ENCOUNTER 2024-08-06 09:11 | Emergency (ER) | payer OTHER, SELFPAY ==
[2024-08-06 09:20] VITALS: BP 130/57; PULSE 88; RESP 20; TEMP 36.7; O2SAT 100
--- NOTE | 2024-08-06 09:24 | ED_ITS ---
HPI - Skin/Abscess/Foreign Bdy General Chief complaint: Skin/Abscess/Foreign Body Stated complaint: Insect Bite Time Seen by Provider: 08/06/24 09:20 Source: patient Mode of arrival: ambulatory Limitations: no limitations History of Present Illness HPI narrative: Alphonse is a 33-year-old female patient presenting to the clinic today with complaints of a insect bite to her left upper thigh. She reports this has been there for approximately 1 week. The area is itchy. Nonpainful. Applied some diaper rash cream to the area and some apple cider vinegar. No relief. No fevers, chills, body aches. She is 16 weeks . Last menstrual period was 4-5 months ago Related Data Home Medications ?Medication ?Instructions ?Recorded ?Confirmed ?Last Taken ?Type fluconazole 150 mg tablet mg 03/26/24 Unknown History Allergies Allergy/AdvReac Type Severity Reaction Status Date / Time buspirone Allergy Severe Swelling Verified 07/31/24 16:17 of Lip/Tongue/Throat peanut Allergy Severe Swelling Verified 07/31/24 16:17 of Lip/Tongue/Throat Review of Systems Review of Systems: Pertinent positives per HPI. Patient denies any fever, chills, rash, headache, visual changes, dizziness, cough, runny nose, sore throat, shortness of breath, chest pain, palpitations, nausea, vomiting, diarrhea, constipation, abdominal pain, or any urinary issues. PMFSH Past Medical History Medical History Smoker Yeast infection Currently Family History Family History Other No pertinent family history Social History Social History Years smoked: 6 Smoking status: Former smoker Tobacco type: cigarettes Second hand tobacco smoke exposure: No Substance use: never Gender identity (if verbalized by the patient): Female Spiritual care concerns: No Comments At the time of my signature, I reviewed and agree with the nursing past medical, surgical, social, and family history. There is no relevant family history pertinent to the patient complaint. Exam Narrative: General: Well-developed, well nourished, in no apparent distress Head: Normocephalic, atraumatic. Cardio: Regular rate and rhythm, s1 and s2 normal, no murmur appreciated. Resp: Clear to auscultation bilaterally, no rhonchi, rales, wheezing or rubs. Integumentary: [place], warm, and dry, mildly indurated 1 x 1 cm insect bite- itchy circular rash with small blistering to the left upper lateral thigh, nontender to palpation Course Course Emergency Course: Portions of this record may have been created with voice recognition software. Level of Care: Express Care Visit Vital Signs Vital signs: Vital Signs Temperature 36.7 C 08/06/24 09:20 Pulse Rate 88 08/06/24 09:20 Respiratory Rate 20 08/06/24 09:20 Blood Pressure 130/57 L 08/06/24 09:20 Pulse Oximetry 100 08/06/24 09:20 Oxygen Delivery Room Air 08/06/24 09:20 Temperature 36.7 C 08/06/24 09:20 Pulse Rate 88 08/06/24 09:20 Respiratory Rate 20 08/06/24 09:20 Blood Pressure 130/57 L 08/06/24 09:20 Pulse Oximetry 100 08/06/24 09:20 Oxygen Delivery Room Air 08/06/24 09:20 Vital signs reviewed MDM - Skin/Abscess/Foreign Bdy MDM Narrative Medical decision making narrative: At the time of visit patient is resting comfortably on the exam table. Patient appears to be nontoxic. Plan: I suspect patient has a insect bite with localized allergic reaction. Prescription for triamcinolone cream was sent to the pharmacy. Supportive measures were discussed with the patient and they voiced understanding discharge instructions and agrees to treatment plan. Return precautions reviewed Differential Diagnosis Differential diagnosis: Likely abscess of skin or subcutaneous tissue, viral exanthem, dermatophytosis, urticaria, herpes zoster, allergic reaction to drug, cellulitis, eczema, insect bites, impetigo and contact dermatitis Discharge Plan Discharge Clinical Impression: Insect bite Qualifiers: Encounter type: initial encounter Site of insect bite: thigh Laterality: left Qualified Code(s): S70.362A - Insect bite (nonvenomous), left thigh, initial encounter Patient Disposition: Home Condition: Stable Instructions: Antibiotic Form, Insect Bite or Sting (ED), General Allergic Reaction (ED) Additional Instructions: Apply triamcinolone cream as directed Avoid hot showers Avoid scratching as this can cause a secondary infection May take benadryl 25-50mg every 6 hours as needed for itching. Follow up with your PCP in 3-5 days if symptoms persist or sooner if they worsen Go to the Emergency Room if symptoms worsen- fever, rash spreading with treatment, shortness of breath, tongue swelling, drooling, or chest pain Patient Language: Bermudian Prescriptions: New triamcinolone acetonide 0.1 % cream 1 applic topical BID 7 Days Qty: 30 0RF No Action fluconazole 150 mg tablet nitrofurantoin monohyd/m-cryst [Macrobid] 100 mg capsule 100 mg PO Q12H 5 Days Qty: 10 0RF Rx Instructions: must administer with a meal/food phenazopyridine [Pyridium] 200 mg tablet 200 mg PO TID Qty: 6 0RF Follow-up/Referrals: PHYSICIAN,SIMULATION EDUCATOR [Primary Care Provider] - Time of Disposition: 09:23 Quality NIHSS Nursing Documentation ED NIHSS nursing documentation: reviewed/agree
== END 2024-08-06 09:49 | disposition home or self-care (01) ==
PROVIDERS: Emergency Provider Nurse Practitioner Family
DX: O9A.212 Injury, poisoning and certain other consequences of external causes complicating pregnancy, second trimester (principal); S70.361A Insect bite (nonvenomous), right thigh, initial encounter; W57.XXXA Bitten or stung by nonvenomous insect and other nonvenomous arthropods, initial encounter; Z87.891 Personal history of nicotine dependence
CPT/HCPCS: 99213; G0463

== ENCOUNTER 2024-11-07 12:14 | Emergency (ER) | payer OTHER, SELFPAY ==
[2024-11-07 12:20] VITALS: BP 118/63; PULSE 94; RESP 16; TEMP 36.4; O2SAT 99
--- NOTE | 2024-11-07 12:58 | ED.URI ---
HPI - URI/Sore Throat General Chief Complaint: Upper Respiratory Infection Stated Complaint: Cough Time Seen by Provider: 11/07/24 13:00 Source: patient, RN notes reviewed and old records reviewed Mode of arrival: ambulatory Limitations: no limitations History of Present Illness HPI Narrative: 34year old female who presents to express care with complaints of cough with increasing shortness of breath and has noted some wheezing since the 29 of October. She states she initially noted sinus congestion and drainage and was given Z-pack by her SEARCH ENGINE [employer]IMIZER for initially sinus infection which did resolve the nasal symptoms except for some occasional drainage. Patient is 30 weeks , admits to smoking 1-2 cigarettes daily. Patient reports no known fevers. MD elicited complaint: cough, rhinorrhea and other (shortnss of breath and wheezing) Pertinent past history: sinusitis Onset (ago): day(s) (10 days ) Consistency: constant Severity: moderate Able to tolerate fluids by mouth: Yes Treatments prior to arrival: other (Took a Z-Avinash) Related Data Allergies Allergy/AdvReac Type Severity Reaction Status Date / Time buspirone Allergy Severe Swelling Verified 11/07/24 12:25 of Lip/Tongue/Throat peanut Allergy Severe Swelling Verified 11/07/24 12:25 of Lip/Tongue/Throat Review of Systems Review of Systems: CONSTITUTIONAL: Denies malaise, chills, sweats, or fever. EYES: Denies visual changes, redness, or discharge. ENT: Reports rhinorrhea, congestion, no sinus pain,no otalgia and no sore throat. CARDIOVASCULAR: Denies chest pain, palpitations, or edema. RESPIRATORY: Reports cough.?Reports some dyspnea. GASTROINTESTINAL: Denies abdominal pain, nausea, vomiting, diarrhea SKIN: Denies rash or itching. MUSCULOSKELETAL: Denies myalgia. NEUROLOGIC: Denies headache. All systems reviewed & are unremarkable except as noted in HPI and below PMFSH Past Medical History Medical History Femur fracture, left as child Smoker Yeast infection Currently Surgical History Surgical History H/O section x2 Family History Family History Other No pertinent family history Social History Social History Years smoked: 6 Smoking status: Current every day smoker Tobacco type: cigarettes Second hand tobacco smoke exposure: No Additional smoking assessment comments: former 1/2 ppd for 8-9 years now smokes 1-2 cigarettes daily since Alcohol use details: no alcohol use Substance use: never Living arrangements: with family Gender identity (if verbalized by the patient): Female Spiritual care concerns: No Comments At time of signature, agree with nursing past medical, surgical, social and family history. There is no relevant family history pertinent to the presenting complaint Exam Narrative: GENERAL: Well-appearing, well-nourished, and in no acute distress. HEAD: Normocephalic EYES: PERRLA, conjunctivae clear ENT: Nares clear, turbinates edematous and erythematous, clear to light yellow discharge. Mucous membranes moist. TM pearly swan with dull light reflex bilaterally; no tragal tenderness. Oropharynx erythematous without lesions. Tonsils not enlarged and without exudate, no drooling, no hoarseness, no trismus, uvula midline. NECK: Supple. No lymphadenopathy CHEST: scattered wheezing on auscultation, breath sounds equal.positive for wheezing,no rhonchi, rales, or stridor. No respiratory distress, speaks in full sentences.cough noted dry with some stated shortness of breath on exertion. HEART: Regular rate and rhythm. No murmur heard. SKIN: Warm, dry, no rash. NEURO: Alert and oriented x3. PSYCH: Normal mood and affect Course Course Emergency Course: Patient is aware of diagnosis, understands and agrees to treatment plan.? Anticipatory guidance given.? Patient agrees to follow-up as directed and is aware of reasons to seek care at the emergency department. Portions of this record may have been created with voice recognition software Level of Care: Express Care Visit Vital Signs Vital signs: Vital Signs Temperature 36.4 C L 11/07/24 12:20 Pulse Rate 94 11/07/24 12:20 Respiratory Rate 16 11/07/24 12:20 Blood Pressure 118/63 11/07/24 12:20 Pulse Oximetry 99 11/07/24 12:20 Oxygen Delivery Room Air 11/07/24 12:20 Temperature 36.4 C L 11/07/24 12:20 Pulse Rate 94 11/07/24 12:20 Respiratory Rate 16 11/07/24 12:20 Blood Pressure 118/63 11/07/24 12:20 Pulse Oximetry 99 11/07/24 12:20 Oxygen Delivery Room Air 11/07/24 12:20 Reviewed MDM - URI/Sore Throat MDM Narrative Medical decision making narrative: Differential diagnosis considered: Montero virus, strep pharyngitis, allergic rhinitis, upper respiratory tract infection, sinusitis, rhinosinusitis, nasopharyngitis. viral pharyngitis, otitis media, otitis externa, pneumonia, bronchitis, viral cough syndrome, viral syndrome, and influenza.? Exam findings show no acute concerns or changes; patient is non-toxic appearing and is in no distress.? Patient is appropriate for outpatient treatment and follow-up. Differential Diagnosis Differential diagnosis: Likely upper respiratory infection, viral infection, bronchitis and other (cough) Medical Records Attestation: I reviewed the patient's medical records. Lab Data Attestation: I reviewed the patient's lab results. Critical Care Time Critical Care Time Critical Care Time: No Discharge Plan Discharge Clinical Impression: Bronchitis Currently Qualifiers: Weeks of gestation: 30 weeks Qualified Code(s): Z3A.30 - 30 weeks gestation of Patient Disposition: Home Condition: Stable Instructions: Antibiotic Form, Acute Bronchitis (ED) Additional Instructions: Increase fluids especially juices and water [id number] cough and cold medicine of your choice for your symptoms, list given of medications safe with Tylenol only for any fever pain May take Zyrtec or Claritin daily May use Robitussin cough syrup with expectorant Continue your inhaler/nebulizer as directed Steroids as directed--take with food heat to the face 20-30 minutes 4-6 times a day for pain Salt water gargles, throat lozenges or throat sprays as desired If your symptoms persist, change or worsen significantly before you can contact your personal physician then please, without delay, go to the emergency department for further evaluation. Follow-up with PCP in 7-10 days or sooner if needed Monitor for any fevers Patient Language: Slovenian Prescriptions: New prednisone 20 mg tablet 20 mg PO BID Qty: 10 0RF Rx Instructions: take with food do not take PM dose after 7 PM albuterol sulfate [Ventolin HFA] 90 mcg/actuation HFA aerosol inhaler 2 puff inhalation QID PRN (Reason: shortness of breath or wheezing) Qty: 6.7 0RF Rx Instructions: take as prescribed, use routinely for the first 24 hours then as needed Follow-up/Referrals: PHYSICIAN,SKY LINE YARDER [Primary Care Provider, Internal Medicine] Time of Disposition: 13:18 Quality [place] Coma Scale Eyes: Open Verbal: Oriented and Alert Motor: Follows Commands [place] Coma Total Score: 15
== END 2024-11-07 13:25 | disposition home or self-care (01) ==
PROVIDERS: Emergency Provider Registered Nurse
DX: O99.513 Diseases of the respiratory system complicating pregnancy, third trimester (principal); J40 Bronchitis, not specified as acute or chronic; O99.333 Smoking (tobacco) complicating pregnancy, third trimester; F17.210 Nicotine dependence, cigarettes, uncomplicated; Z3A.30 30 weeks gestation of pregnancy
CPT/HCPCS: 99213; G0463

== ENCOUNTER 2024-11-30 12:13 | Emergency (ER) | payer OTHER, SELFPAY ==
--- NOTE | 2024-11-30 12:43 | ED_ITS ---
HPI - URI/Sore Throat General Chief Complaint: Upper Respiratory Infection Stated Complaint: /Cough Time Seen by Provider: 11/30/24 12:43 Source: patient Mode of arrival: ambulatory Limitations: no limitations History of Present Illness HPI Narrative: 34 yo F presents with c/o cough for several wks. States that she was seen here for bronchitis and treated with albuterol and prednisone. Cough never resolved. Now coughing up green sputum. No CP or SOB. pt is 33 wks . All systems reviewed and negative except as noted above. Related Data Allergies Allergy/AdvReac Type Severity Reaction Status Date / Time buspirone Allergy Severe Swelling Verified 11/30/24 12:51 of Lip/Tongue/Throat peanut Allergy Severe Swelling Verified 11/30/24 12:51 of Lip/Tongue/Throat PMFSH Past Medical History Medical History Femur fracture, left as child Smoker Yeast infection Currently Surgical History Surgical History H/O section x2 Family History Family History Other No pertinent family history Social History Social History Years smoked: 6 Smoking status: Current every day smoker Tobacco type: cigarettes Second hand tobacco smoke exposure: No Additional smoking assessment comments: former 1/2 ppd for 8-9 years now smokes 1-2 cigarettes daily since Alcohol use details: no alcohol use Substance use: never Living arrangements: with family Gender identity (if verbalized by the patient): Female Spiritual care concerns: No Comments At time of signature, agree with nursing past medical, surgical, social and family history. There is no relevant family history pertinent to the presenting complaint. Exam Narrative: GENERAL: This is a well-nourished, well-developed patient, in no apparent distress. HEAD: normocephalic, atraumatic. EYES: PERRL. Sclera clear/white. Vision is grossly intact. EARS: External ears normal, auditory canals clear and without drainage, TMs normal without perforation. Hearing grossly intact. NOSE: External nose normal with no obvious nasal discharge, nares without redness, no rhinorrhea. THROAT: Mucous membranes moist, posterior pharynx clear. NECK: Neck supple, non-tender without lymphadenopathy, masses or thyromegaly. CARDIOVASCULAR: Regular rate and rhythm without murmurs, gallops, or rubs. RESPIRATORY: Mild expiratory wheeze on expiration to bilateral lower lung dias. Breath sounds equal bilaterally. No , rales, or rhonchi. SKIN: warm, Dry, intact with no suspicious lesions or rash, good texture and turgor. NEURO: awake, alert, and oriented to person, place and time. There were no obvious focal neurologic abnormalities. EXTREMITIES: No joint tenderness, effusion, or edema noted. Course Course Level of Care: Express Care Visit Vital Signs Vital signs: Reviewed MDM - URI/Sore Throat MDM Narrative Medical decision making narrative: will treat patient with antibiotic for bronchitis. Unable to rule out pneumonia , limiting radiation while . Patient is well-appearing, nontoxic. Differential Diagnosis Differential diagnosis: Likely upper respiratory infection, viral infection, bronchitis, pharyngitis and other ( Pneumonia) Discharge Plan Discharge Clinical Impression: Acute bronchitis Patient Disposition: Home Condition: Stable Instructions: Antibiotic Form, Acute Bronchitis (ED) Additional Instructions: Take antibiotic as prescribed until gone. Drink at least 64 oz of water a day. Place cool mist humidifier in bedroom where you sleep. See your primary care physician if symptoms are not improving. Patient Language: Faroese Prescriptions: New amoxicillin-pot clavulanate 875-125 mg tablet 1 tablet PO Q12H 10 Days Qty: 20 0RF No Action prednisone 20 mg tablet 20 mg PO BID Qty: 10 0RF Rx Instructions: take with food do not take PM dose after 7 PM albuterol sulfate [Ventolin HFA] 90 mcg/actuation HFA aerosol inhaler 2 puff inhalation QID PRN (Reason: shortness of breath or wheezing) Qty: 6.7 0RF Rx Instructions: take as prescribed, use routinely for the first 24 hours then as needed Follow-up/Referrals: PHYSICIAN,PATHOLOGY SPECIALIST [Primary Care Provider, Internal Medicine] Time of Disposition: 12:51
[2024-11-30 12:50] LABS: EDSTREPNEGPOS1 Negative (Negative)
== END 2024-11-30 13:00 | disposition home or self-care (01) ==
PROVIDERS: Emergency Provider Nurse Practitioner Family
DX: O26.899 Other specified pregnancy related conditions, unspecified trimester (principal); J20.9 Acute bronchitis, unspecified; Z3A.00 Weeks of gestation of pregnancy not specified
CPT/HCPCS: 87081; 87880; 99213; G0463